=== PATIENT | female | born 1945 | race Caucasian/White ===

== ENCOUNTER 2017-02-23 00:38 | Inpatient (IN) | payer MEDICAID ==
[~2017-02-23] VITALS: Ht 157.5 cm; Wt 54.0 kg
[2017-02-23] VITALS (19 sets, daily range): BP systolic 103–134; BP diastolic 53–74
[2017-02-23] MEDS ORDERED: IV NORMAL SALINE 1000 ML BAG IV ONE ×2 (01:00→18:15)
--- NOTE | 2017-02-23 01:00 | NUR ---
PT BROUGHT IN BY EMS. PER DAUGHTER, PT WAS TAKEN OFF HOSPICE CARE AND CURRENTLY LIVES AT HOME. INCREASING CONGESTION AND AMS
--- NOTE | 2017-02-23 01:10 | NUR ---
LAB AND RT AT PT BEDSIDE
[2017-02-23 01:13] LABS: ABG BASE EXCESS 4.8 mmol/L; ABG HCO3 27.3 mmol/L; ABG PCO2 33.2 mmHg (35.0-45.0); ABG PH 7.533 (7.350-7.450); ABG SITE LEFT RADIAL; ABG TOTAL HEMOGLOBIN 11.9 G/dL (12.0-16.0); COHb 1.4 % (0.5-1.5); MetHb 0.1 % (0.0-1.5); O2Hb 85.3 % (94.0-97.0); VENT MODE Nasal Cannula
[2017-02-23 01:34] LABS: BASOPHILS # (AUTO) 0.1 K/uL (0.0-8.0); BASOPHILS % (AUTO) 0.2 % (0.0-2.0); HEMATOCRIT 35.4 % (31.2-41.9); HEMOGLOBIN 11.8 g/dL (10.9-14.3); LYMPHOCYTES % (AUTO) 3.8 % (20.5-51.5); MEAN CORPUSCULAR HEMOGLOBIN 31.7 uug (24.7-32.8); MEAN CORPUSCULAR HGB CONC 33 g/dL (32.3-35.6); MEAN CORPUSCULAR VOLUME 95.4 fL (75.5-95.3); MONOCYTES # (AUTO) 0.6 K/uL (2.0-10.0); MONOCYTES % (AUTO) 2.1 % (0.0-11.0); NEUTROPHILS # (AUTO) 24.2 K/uL (1.8-8.9); NEUTROPHILS % (AUTO) 93.9 % (38.5-71.5); PLATELET COUNT (AUTO) 288 K/uL (179-408); RED BLOOD CELL COUNT(AUTO) 3.71 MIL/uL (3.63-4.92); WHITE BLOOD COUNT (AUTO) 25.8 K/uL (3.8-11.8)
[2017-02-23] MEDS ORDERED: LEVOFLOXACIN 750 MG/D5W 150 ML PIGGYBACK IV ONE (01:45)
[2017-02-23] MEDS ORDERED: ENOXAPARIN SODIUM 80 MG/0.8 ML DISP.SYRIN SQ ONE ×2 (01:45→02:43)
[2017-02-23 02:00] LABS: ALANINE AMINOTRANSFERASE 80 U/L (14-59); ALKALINE PHOSPHATASE 88 U/L (50-136); ASPARTATE AMINOTRANSFERASE 51 U/L (15-37); BILIRUBIN,DIRECT 0.2 mg/dL (0.0-0.2); CARBON DIOXIDE 29 mmol/L (21-32); CREATININE 1.1 mg/dL (0.6-1.3); GLUCOSE 160 mg/dL (74-106); UREA NITROGEN, BLOOD 36 mg/dL (7-18)
--- NOTE | 2017-02-23 02:00 | NUR ---
PT PUT ON BIPAP BY RT
[2017-02-23 02:23] LABS: CHLORIDE 127 mmol/L (98-107)
--- NOTE | 2017-02-23 02:36 | NUR ---
Dr. Uli carnes for Dr. Reeves
[2017-02-23] MEDS ORDERED: LEVOFLOXACIN 750MG/D5W 150 ML IV ONE (02:43)
[2017-02-23] MEDS ORDERED: IV NS 1000 ML 1,000 ML IV ONE (02:51)
--- NOTE | 2017-02-23 03:00 | NUR ---
Placed pt on BiPAP due to shallow breathing, tachypnea and Dr Reeves order with the following settings of I-15, E-5, PS-10, RR-18, FIO2-60%. Pt awake. Family at bedside. Alarms on and audible.
[2017-02-23] MEDS ORDERED: Z GUARD REMEDY PASTE 57 GM TUBE TOP PRN (03:15)
[2017-02-23] MEDS ORDERED: MAGNESIUM HYDROXIDE 30 ML LIQUID UDC PO PRN (03:15)
[2017-02-23] MEDS ORDERED: ONDANSETRON 4 MG/2 ML VIAL IV PRN (03:15)
[2017-02-23] MEDS ORDERED: IV 1/2NS 1000 ML 1,000 ML IV SCH (03:15)
[2017-02-23] MEDS ORDERED: ACETAMINOPHEN 325 MG TABLET PO PRN (03:15)
[2017-02-23] MEDS ORDERED: HYDROCODONE/APAP 5-325MG TABLET PO PRN (03:15)
[2017-02-23] MEDS ORDERED: LEVOTHYROXINE 88 MCG TABLET (03:49)
[2017-02-23] MEDS ORDERED: [UNRECOGNIZED DRUG - SUPPLY] (03:49)
[2017-02-23] MEDS ORDERED: [UNRECOGNIZED DRUG - SUPPLY] (03:49)
[2017-02-23] MEDS ORDERED: JENTADUETO (03:49)
[2017-02-23] MEDS ORDERED: BISOPROLOL FUMARATE 5 MG TAB (03:49)
--- NOTE | 2017-02-23 04:00 | NUR ---
PT IN POSITION OF COMFORT. DAUGHTER AT BEDSIDE
[2017-02-23] MEDS ORDERED: LEVOFLOXACIN 250 MG IV ONE (04:25)
[2017-02-23] MEDS ORDERED: D5W IV ONE (04:25)
--- NOTE | 2017-02-23 05:05 | NUR ---
RT AT PT BEDSIDE
--- NOTE | 2017-02-23 05:54 | NUR ---
LAB AT PT BEDSIDE
[2017-02-23 06:31] LABS: CARBON DIOXIDE 26 mmol/L (21-32); GLUCOSE 191 mg/dL (74-106); POTASSIUM 2.9 mmol/L (3.5-5.1); UREA NITROGEN, BLOOD 34 mg/dL (7-18)
[2017-02-23 06:34] LABS: CHLORIDE 127 mmol/L (98-107)
[2017-02-23] MEDS ORDERED: IOHEXOL 350 100 ML INFUS..BTL ONE (07:02)
[2017-02-23] MEDS ORDERED: IV NORMAL SALINE 250 ML IV ONE (07:02)
--- NOTE | 2017-02-23 07:14 | NUR ---
Care signed over from Dr. Reeves. The patient is 71 years old. History of dementia. Family is at bedside and the patient is full code. She has a presumptive pulmonary embolism right now being treated with Lovenox as well as antibiotics for possible bacterial pneumonia. On shift change she is on her way to the scanner for CT PA.
--- NOTE | 2017-02-23 07:38 | NUR ---
REPORT GIVEN TO MAGED JAMISON.
[2017-02-23] MEDS ORDERED: PROPOFOL 100 ML IV ONE (07:53)
--- NOTE | 2017-02-23 07:55 | NUR ---
Was called by radiology that the patient has a small subsegmental right lower lobe pulmonary embolism but no signs of right heart strain. She does have a multifocal multilobar pneumonia. Lengthy discussion with the daughter at bedside regarding the patient's diagnosis and her continued respiratory distress and that she would likely benefit from endotracheal intubation at this time. The daughter agrees.
[2017-02-23] MEDS ORDERED: PROPOFOL 200 MG/20 ML BOTTLE IV ONE (08:00)
[2017-02-23] MEDS ORDERED: FENTANYL CITRATE 100 MCG/2 ML AMPUL IV ONE (08:00)
[2017-02-23] MEDS ORDERED: KETAMINE HCL 500 MG/10 ML INJ IV ONE ×2 (08:00→09:30)
[2017-02-23] MEDS ORDERED: SUCCINYLCHOLINE CHLORIDE 200 MG/10 ML VIAL IV ONE ×2 (08:00→11:36)
[2017-02-23] MEDS ORDERED: FENTANYL CITRAT IV 1,250 MCG in IV NORMAL SALINE 225 ML IV PRN (08:15)
[2017-02-23] MEDS ORDERED: KETAMINE HCL 500 MG/10 ML INJ ONE (08:28)
[2017-02-23] MEDS ORDERED: PROPOFOL 100 ML ONE ×2 (08:31→16:49)
[2017-02-23] MEDS ORDERED: FENTANYL CITRATE 100 MCG/2 ML AMPUL ONE ×2 (08:31→08:34)
--- NOTE | 2017-02-23 08:59 | NUR ---
I intubated the patient on first pass without complication using ketamine and succinylcholine a Mac 4 blade and a 7.5 ET tube. The patient was requiring 16 mmHg of EPAP while on BiPAP I will presume she has ARDS won't treat her with tidal volume of 450 which is roughly 7 mL/kg, start with hypertension of 10, oxygen of 60, and follow up with the blood gas in 30 minutes. Her influenza swab is not back yet but I will presumptively begin treatment with Tamiflu now. Endotracheal Intubation by me: Pre assessment performed. See preceding note for details. Pre-oxygenation performed with 100% oxygen RSI: Performed w/o complication or hypoxic events. Medications as ordered. Blade: [Mac 4] ET Tube: [7.5] cm Depth: [21] cm at the lip Intubation confirmed by colorimetric CO2, equal breath sounds, quiet over the stomach.
[2017-02-23] MEDS ORDERED: OSELTAMIVIR PHOSPHATE 75 MG CAPSULE PO ONE (09:00)
--- NOTE | 2017-02-23 09:00 | NUR ---
Pt intubated.. settings as charted.. titrate to maintain sats 92%
[2017-02-23] MEDS ORDERED: NOREPINEPHRINE BITARTRATE 8 MG in IV DEXTROSE 5% 500 ML IV PRN ×2 (09:15→19:15)
[2017-02-23] MEDS ORDERED: DOPamine IV DRIP 250 ML IV PRN (09:30)
[2017-02-23 10:00] LABS: ABG BASE EXCESS -2.9 mmol/L; ABG HCO3 21.3 mmol/L; ABG PCO2 34.9 mmHg (35.0-45.0); ABG PH 7.403 (7.350-7.450); ABG PO2 68.1 mmHg (75.0-100.0); ABG SITE RIGHT RADIAL; ABG TOTAL HEMOGLOBIN 10.6 G/dL (12.0-16.0); COHb 0.6 % (0.5-1.5); O2Hb 91.3 % (94.0-97.0); VENT MODE VENT - A/C; VT, ABG 450 mL
[2017-02-23] MEDS ORDERED: DEXTROSE 50% 50 ML DISP.SYRIN IV PRN (10:45)
--- NOTE | 2017-02-23 11:00 | NUR ---
Spoke with Zachary for Picc Line placement as ordered by Dr. Lambert, eta 1300.
[2017-02-23] MEDS: ENOXAPARIN SODIUM 80 MG/0.8 ML DISP.SYRIN SQ SCH ×2 (11:03→23:38)
[2017-02-23] MEDS ORDERED: ENOXAPARIN SODIUM 40 MG/0.4 ML DISP.SYRIN SQ ONE (11:21)
[2017-02-23] MEDS ORDERED: ENOXAPARIN SODIUM 30 MG/0.3 ML DISP.SYRIN ONE (11:21)
[2017-02-23] MEDS: BLOOD SUGAR DIAGNOSTIC 1 EACH STRIP VI SCH ×3 (12:40→23:40)
[2017-02-23 14:02] LABS: CARBON DIOXIDE 23 mmol/L (21-32); CREATININE 1.2 mg/dL (0.6-1.3); GLUCOSE 240 mg/dL (74-106); UREA NITROGEN, BLOOD 38 mg/dL (7-18)
[2017-02-23 14:04] LABS: CHLORIDE 126 mmol/L (98-107)
--- NOTE | 2017-02-23 17:01 | NUR ---
REPOPRT WAS GIVEN TO PATTERN PUNCHER. PT WAS TRANSFERD TO CCU ROOM #3.
[2017-02-23] MEDS ORDERED: CEFTRIAXONE 1 G in IV DEXTROSE 5% 50 ML IV SCH (18:15)
[2017-02-23] MEDS ORDERED: IV 1/2NS 1000 ML 1,000 ML IV PRN (18:44)
[2017-02-23] MEDS ORDERED: NS IV ONE (18:45)
[2017-02-23] MEDS ORDERED: PROPOFOL 100 ML IV PRN (19:15)
[2017-02-23 19:50] LABS: *BLOOD, URINE 2+ (NEGATIVE); *CLARITY,URINE SLIGHTLY CLOUDY (CLEAR); *COLOR,URINE DARK YELLOW (YELLOW); *KETONES,URINE NEGATIVE (NEGATIVE); *PROTEIN,URINE 2+ (NEGATIVE); *UROBILINOGEN,URINE 0.2 E.U./dl (NORMAL); LEUKOCYTE ESTERASE ,URINE NEGATIVE (NEGATIVE); NITRITE, URINE NEGATIVE (NEGATIVE); UGLUCOSE NEGATIVE (NEGATIVE)
[2017-02-23] MEDS: PROPOFOL 100 ML IV PRN (19:52)
[2017-02-23] MEDS: PANTOPRAZOLE SODIUM 40 MG VIAL IV SCH (19:54)
[2017-02-23] MEDS: INSULIN REGULAR, HUMAN 300 UNIT/3 ML VIAL SQ PRN ×2 (19:58→23:39)
--- NOTE | 2017-02-23 20:00 | NUR ---
Spoke with Dr Pop regarding insulin coverage with NPO patient and no dextrose in IVF. Orders received. OK to give insulin as order per sliding scale. If Accu-check glucose levels reach < 200, change IVF to D5 1/2NS @ 100mL/hr (placed as [facility] order).
[2017-02-23 20:03] LABS: *BILIRUBIN,URIN NEGATIVE (NEGATIVE)
[2017-02-23 20:04] LABS: BACTERIA,URINE MANY /HPF (NONE SEEN); COARSE GRANULAR CASTS,URINE 0-3 /LPF; MUCUS,URINE MANY /LPF (0-FEW); SQUAMOUS EPITHELIAL CELL,UR FEW /HPF (NONE SEEN); WBC,URINE 0-3 /HPF (0-3)
--- NOTE | 2017-02-23 21:08 | NUR ---
Tamiflu not given in ER. Override pyxis, given as ordered.
[2017-02-23] MEDS ORDERED: OSELTAMIVIR PHOSPHATE 75 MG CAPSULE ONE (21:17)
--- NOTE | 2017-02-23 22:07 | NUR ---
PT ON CONT JORDAN VENT WITH 7.5 ET/TUBE IN PLACE 22CM LIP LINE, ANCHOR FAST IN PLACE AND SECURED, WITH CURRENT VENT SETTINGS, A/C 20, VT 450ML, PEEP5, 35%, PT WITH MOSTLY CONTROLLED VENTILATION, WITH GOOD COUGH EFFORT, SPUTUM SAMPLE WAS DONE, SLIGHT BLOODY TINGE SECRETIONS, AND SUCTION MOUTH WITH BLANCA GUERRIER, PT IN CONTACT ISOLATION, CHECK CUFF 24CM PRESSURE, CHANGE HME, ALL ALARMS OK, AMBU BAG AT BEDSIDE, NO VENT CHANGES MADE AT THIS TIME.Law VIVEROS RCP Addendum: 02/23/17 at 2210 by WAQAR VIVEROS RT Amended: Links added.
--- NOTE | 2017-02-23 23:30 | NUR ---
Resting comfortably, adequately sedated on Diprivan. Comfortable on current vent settings. Weaned off Levophed drip. Will monitor pt closely. Accuchek down to 183 thus IV solution changed to D5 1/2 NS at 100 ml/hr. Nursing comfort measures observed at all times. Turned/positioned q 2hr and PRN. Please see CCU flowsheet for full assessment and clinical data.
[2017-02-23] MEDS: IV D5 1/2 NS 1000 ML 1,000 ML IV PRN (23:57)
[2017-02-24] VITALS (31 sets, daily range): BP systolic 89–158; BP diastolic 26–89
[2017-02-24] MEDS ORDERED: IPRATROPIUM BROMIDE 0.5 MG/2.5 ML NEBU NEB PRN (00:15)
[2017-02-24] MEDS ORDERED: ALBUTEROL SULFATE 1.25 MG/3 ML NEBU NEB PRN (00:15)
[2017-02-24 01:45] LABS: CARBON DIOXIDE 27 mmol/L (21-32); GLUCOSE 191 mg/dL (74-106); UREA NITROGEN, BLOOD 34 mg/dL (7-18)
[2017-02-24 01:50] LABS: CHLORIDE 126 mmol/L (98-107); POTASSIUM 2.5 mmol/L (3.5-5.1)
[2017-02-24] MEDS: LEVOFLOXACIN 250MG /D5W 250 MG in PREMIXED 1 EACH IV SCH (02:14)
[2017-02-24] MEDS: POTASSIUM CHLORIDE 50 ML IV SCH ×4 (03:52→05:57)
[2017-02-24] MEDS: BLOOD SUGAR DIAGNOSTIC 1 EACH STRIP VI SCH ×3 (05:56→18:38)
[2017-02-24] MEDS: INSULIN REGULAR, HUMAN 300 UNIT/3 ML VIAL SQ PRN ×3 (05:58→18:42)
--- NOTE | 2017-02-24 06:00 | NUR ---
Stable night. Remains off pressor. Requires minimal dose Diprivan. KCL replacements in progress. No ectopics on monitor. Please see CCU flowsheet for trends and clinical data.
--- NOTE | 2017-02-24 07:30 | NUR ---
recieved lying in bed, sedated, on propofol drip at 15mcg/kg/min. via the picc line on the right upper arm. PT IS EASILY AROUSABLE, INTUBATED AND CONNECTED TO VENT AT AC-20, VT-450, FIO2-35%, PEEP-5. TOLERATED WELL. SUCTION SMALL AMOUNT OF CLEAR WHITISH SECRETIONS. NO APPARENT RESPIRATORY DISTRESS NOTED.
[2017-02-24 07:54] LABS: ABG BASE EXCESS -2.3 mmol/L; ABG HCO3 20.4 mmol/L; ABG PCO2 27.8 mmHg (35.0-45.0); ABG PH 7.483 (7.350-7.450); ABG PO2 94.5 mmHg (75.0-100.0); ABG SITE RIGHT RADIAL; ABG TOTAL HEMOGLOBIN 9.3 G/dL (12.0-16.0); COHb 0.6 % (0.5-1.5); MetHb 0.3 % (0.0-1.5); O2Hb 96.1 % (94.0-97.0); VENT MODE VENT - A/C; VT, ABG 450 mL
--- NOTE | 2017-02-24 08:00 | NUR ---
HR IS SR WITH OCCASSIONAL PAC'S.
[2017-02-24] MEDS: PANTOPRAZOLE SODIUM 40 MG VIAL IV SCH (08:42)
[2017-02-24 09:59] LABS: MONOCYTES # (AUTO) 0.3 K/uL (2.0-10.0); NEUTROPHILS # (AUTO) 12.6 K/uL (1.8-8.9)
[2017-02-24 10:10] LABS: BASOPHILS % (AUTO) 0.3 % (0.0-2.0); EOSINOPHILS % (AUTO) 0.1 % (0.0-7.0); LYMPHOCYTES # (AUTO) 0.9 K/uL (20.0-40.0); LYMPHOCYTES % (AUTO) 6.4 % (20.5-51.5); MEAN CORPUSCULAR HEMOGLOBIN 31.9 uug (24.7-32.8); MEAN CORPUSCULAR HGB CONC 33 g/dL (32.3-35.6); NEUTROPHILS % (AUTO) 91.2 % (38.5-71.5)
[2017-02-24 10:27] LABS: RED BLOOD CELL COUNT(AUTO) 2.44 MIL/uL (3.63-4.92)
[2017-02-24 10:28] LABS: HEMATOCRIT 23.4 % (31.2-41.9); HEMOGLOBIN 7.8 g/dL (10.9-14.3); PLATELET COUNT (AUTO) 154 K/uL (179-408); WHITE BLOOD COUNT (AUTO) 13.8 K/uL (3.8-11.8)
[2017-02-24] MEDS: PROPOFOL 100 ML IV PRN (10:56)
[2017-02-24] MEDS: IV D5 1/2 NS 1000 ML 1,000 ML IV PRN (11:00)
--- NOTE | 2017-02-24 11:30 | NUR ---
INFORMED CATALINO WOMACK REGARDING HIGH SODIUM. PT IS GETTING 300ML OF WATER Q4HRS.
--- NOTE | 2017-02-24 11:30 | NUR ---
SEEN AND EXAMINED BY DR STOKES WITH NEW ORDERS.
[2017-02-24 11:35] LABS: CARBON DIOXIDE 24 mmol/L (21-32); CHLORIDE 123 mmol/L (98-107); CREATININE 0.9 mg/dL (0.6-1.3); GLUCOSE 187 mg/dL (74-106); MAGNESIUM 1.7 mg/dL (1.8-2.4); PHOSPHOROUS 1.8 mg/dL (2.5-4.9); POTASSIUM 3.1 mmol/L (3.5-5.1); UREA NITROGEN, BLOOD 34 mg/dL (7-18)
[2017-02-24] MEDS ORDERED: CEFEPIME HCL 1 G in IV DEXTROSE 5% 50 ML IV SCH ×2 (13:00→14:00)
--- NOTE | 2017-02-24 13:00 | NUR ---
DAUGHTER AND AT THE BEDSIDE. SPOKEN WITH FISHER CLAM.
[2017-02-24] MEDS: ENOXAPARIN SODIUM 80 MG/0.8 ML DISP.SYRIN SQ SCH ×2 (13:17→23:00)
--- NOTE | 2017-02-24 14:00 | NUR ---
OGT INTACT.. VSS.
[2017-02-24] MEDS ORDERED: NEUTRA PHOS PACKET NG ONE (16:30)
--- NOTE | 2017-02-24 17:01 | NUR ---
PT REMAINS ON JORDAN VENT, SETTINGS AC 20, Vt 450, +5, 35% FIO2. DOING WELL ON CURRENT SETTINGS, NO SOB NOTED. 7.5 ETT IS PATENT AND SECURED WITH ANCHOR FAST. SUCTIONED SMALL AMOUNTS OF PALE YELLOW THICK SECRETIONS. BVM AT BEDSIDE. ALARMS ARE ON AND AUDIBLE. WILL CONTINUE TO MONITOR.
--- NOTE | 2017-02-24 18:30 | NUR ---
PM CARE RENDERED.
[2017-02-25] VITALS (17 sets, daily range): BP systolic 102–133; BP diastolic 53–65
[2017-02-25] MEDS: BLOOD SUGAR DIAGNOSTIC 1 EACH STRIP VI SCH ×5 (00:29→23:38)
--- NOTE | 2017-02-25 01:45 | NUR ---
PT ON CONT JORDAN VENT WITH 7.5 ET/TUBE IN PLACE, 21CM AT BEDSIDE, WITH ANCHOR FAST IN PLACE AND SECURED,ROTATE ANCHOR FAST SIDE TO SIDE, SUCTIONED LIGHT PALE YELL TINGE SECRETIONS, WITH GOOD COUGH EFFORT, PT WITH MOSTLY CONTROLLED VENTILATION, SUCTION MOUTH WITH YANKAUER, ORAL CARE DONE, CHANGE HME, NO VENT CHANGES MADE AT THIS TIME., VENT SETTINGS, A/C 20, VT 450ML, , PEEP5 , 35%. Law LINDP Addendum: 02/25/17 at 0153 by WAQAR VIVEROS RT Amended: Links added.
[2017-02-25] MEDS: LEVOFLOXACIN 250MG /D5W 250 MG in PREMIXED 1 EACH IV SCH (03:42)
[2017-02-25] MEDS: PROPOFOL 100 ML IV PRN ×3 (03:52→21:17)
[2017-02-25] MEDS ORDERED: LEVOFLOXACIN 250MG /D5W 50 ML IV ONE (03:53)
[2017-02-25 05:21] LABS: BASOPHILS % (AUTO) 0.1 % (0.0-2.0); EOSINOPHILS # (AUTO) 0.1 K/uL (0.0-0.7); EOSINOPHILS % (AUTO) 0.5 % (0.0-7.0); HEMATOCRIT 28.5 % (31.2-41.9); HEMOGLOBIN 9.1 g/dL (10.9-14.3); LYMPHOCYTES % (AUTO) 5.7 % (20.5-51.5); MEAN CORPUSCULAR HEMOGLOBIN 30.3 uug (24.7-32.8); MEAN CORPUSCULAR HGB CONC 32 g/dL (32.3-35.6); MEAN CORPUSCULAR VOLUME 94.7 fL (75.5-95.3); MONOCYTES # (AUTO) 0.3 K/uL (2.0-10.0); MONOCYTES % (AUTO) 1.8 % (0.0-11.0); NEUTROPHILS # (AUTO) 15.8 K/uL (1.8-8.9); NEUTROPHILS % (AUTO) 91.9 % (38.5-71.5); PLATELET COUNT (AUTO) 198 K/uL (179-408); RED BLOOD CELL COUNT(AUTO) 3.01 MIL/uL (3.63-4.92); WHITE BLOOD COUNT (AUTO) 17.2 K/uL (3.8-11.8)
[2017-02-25 05:31] LABS: CARBON DIOXIDE 23 mmol/L (21-32); CHLORIDE 119 mmol/L (98-107); CREATININE 0.7 mg/dL (0.6-1.3); GLUCOSE 143 mg/dL (74-106); MAGNESIUM 1.7 mg/dL (1.8-2.4); PHOSPHOROUS 2.1 mg/dL (2.5-4.9); POTASSIUM 3.1 mmol/L (3.5-5.1); UREA NITROGEN, BLOOD 24 mg/dL (7-18)
[2017-02-25] MEDS: INSULIN REGULAR, HUMAN 300 UNIT/3 ML VIAL SQ PRN ×3 (06:38→18:33)
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
--- NOTE | 2017-02-25 07:30 | NUR ---
RECIEVED PT LYING IN BED, VERY THERESA, SEDATED, EASILY AROUSABLE TO CALL. OPENS EYES. FACE EVEN AND SYMMETRICAL. ALL EXTREMETIES ARE GENERALLY WEAK. LEFT ARM IS SWOLLEN +3 AND ELEVATED ON PILLOW. HR SR WITH OCCASSIONAL PAC'S. PICC LINE INTACT. PROPOFOL DRIP INFUSING WELL AT 15MCG/KG/MIN. MAIN IVF D5NS AT 100ML/HR IN PROGRESS. RIGHT UPPER EXTRMETY IS STIFF. AFEBRILE. ETT INTACT. VENT SETTING AC-20, VT-450, FIO2-35%, PEEP-5. O2SAT 99-100%. ORAL AND ET SUCTIONING WITIH MODERATE AMOUNT OF THICK YELLOW SECRETIONS. NO APPARENT RESPIRATORY DISTRESS NOTED.
--- NOTE | 2017-02-25 07:40 | NUR ---
PT RECEIVED ON JORDAN VENTILATOR. CURRENT VENT SETTINGS ARE AC 20, VT 450, PEEP +5, FIO2 35%. PT APPEARS TO BE TOLERATING SETTINGS AT THIS TIME. NO S/S OF RESPIRATORY DISTRESS NOTED. PT IS ORALLY INTUBATED WITH 7.5 ETT APPROXIMATELY 21CM AT THE LIP. ETT IS PATENT AND SECURED WITH ANCHOR FAST. VENT CHECK DONE. ALARMS ARE ON AND AUDIBLE. SUCTIONED MODERATE AMOUNT OF THICK, YELLOW SECRETIONS. HME CHANGED. ORAL CARE DONE. AMBU BAG IS AT BEDSIDE. VENT IS PLUGGED INTO RED OUTLET. ABG TO BE DONE AT 0800. WILL CONTINUE TO MONITOR PT THROUGHOUT SHIFT.
[2017-02-25] MEDS ORDERED: LEVOFLOXACIN 250MG /D5W 250 MG in PREMIXED 1 EACH IV SCH (08:00)
[2017-02-25 08:16] LABS: ABG BASE EXCESS -3.7 mmol/L; ABG HCO3 19.1 mmol/L; ABG PCO2 27.4 mmHg (35.0-45.0); ABG PH 7.462 (7.350-7.450); ABG PO2 97.9 mmHg (75.0-100.0); ABG SITE RIGHT RADIAL; ABG TOTAL HEMOGLOBIN 9.8 G/dL (12.0-16.0); COHb 0.8 % (0.5-1.5); MetHb 0.3 % (0.0-1.5); O2Hb 96.2 % (94.0-97.0); VENT MODE VENT - A/C; VT, ABG 450 mL
[2017-02-25] MEDS: PANTOPRAZOLE SODIUM 40 MG VIAL IV SCH (09:21)
--- NOTE | 2017-02-25 09:30 | NUR ---
PT IS NPO. OGT INTACT AND PT IS GETTING FREE WATER 300ML Q 4HRS. NO BM NOTED. ABDOMEN IS SOFT.
[2017-02-25] MEDS ORDERED: CEFEPIME HCL 1 G in IV DEXTROSE 5% 50 ML IV SCH ×2 (10:00→11:00)
[2017-02-25] MEDS: IV D5 1/2 NS 1000 ML 1,000 ML IV PRN ×2 (10:22→16:06)
--- NOTE | 2017-02-25 11:15 | NUR ---
SEEN AND EXAMINED BY DR STOKES WITH NEW ORDERS. VENT RATE CHANGED TO 16 ORDERED. AND PROPOFOL IS OFF TO PREPARE PT FOR WEANING.
--- NOTE | 2017-02-25 12:00 | NUR ---
PLACED PT ON CPAP, PSV-10 BY RT PER MD ORDER. PT IS AWAKE,OFF DIPRIVAN.
--- NOTE | 2017-02-25 12:04 | NUR ---
CLINICAL PHARMACY NOTE:VANCOMYCIN DOSING Request for vancomycin dosing on 71y/o female 5'2" 112lbs for sepsis/pneumonia Temp 98.2 BUN 24 Scr 0.7 WBC 17.2 also on Zosyn Start vancomycin 750mg ivpb q18 hours estimated trough 14. Will order trough level prior to 4ht dose. Will continue to monitor.
--- NOTE | 2017-02-25 12:30 | NUR ---
PT RR IS VERY FAST IN THE 40'S. APPEARS GOOD. O2 SAT IS 97%.
--- NOTE | 2017-02-25 12:30 | NUR ---
PT SEVERELY TACHYPNEIC DURING WEANING. VITALS APPEAR STABLE. PT HOWEVER WORKING VERY HARD TO BREATH. STAT ABG DONE. PLACED BACK ON PREVIOUS SETTINGS DUE TO RESPIRATORY RANGING IN THE 40-50'S.
[2017-02-25 12:35] LABS: ABG BASE EXCESS -2.8 mmol/L; ABG HCO3 20.2 mmol/L; ABG PCO2 28.9 mmHg (35.0-45.0); ABG PH 7.462 (7.350-7.450); ABG PO2 84.9 mmHg (75.0-100.0); ABG SITE RIGHT RADIAL; ABG TOTAL HEMOGLOBIN 10.1 G/dL (12.0-16.0); COHb 0.9 % (0.5-1.5); CPAP,BG 10 cmH20; MetHb 0.3 % (0.0-1.5); VENT MODE CPAP
--- NOTE | 2017-02-25 12:45 | NUR ---
RR IS PERSISTENTLY FASTER IN THE 50'S. ABG DRAWN EARLIER AT THIS TIME AND THEN VENT RESUMED BACK TO AC.
--- NOTE | 2017-02-25 12:50 | NUR ---
ABG RESULT CALLED OOUT TO DR STOKES AND INFORMED PT FAILED WEANING PROCESS. ORDERED ABG IN THE MORNING.
[2017-02-25] MEDS: ENOXAPARIN SODIUM 80 MG/0.8 ML DISP.SYRIN SQ SCH ×2 (13:24→23:24)
[2017-02-25] MEDS: PIPERACILLIN/TAZOBACTAM/D5W 3.375 G in PREMIXED 1 EACH IV SCH ×2 (13:31→21:18)
[2017-02-25] MEDS ORDERED: VANCOMYCIN IV 750 MG in IV DEXTROSE 5% 250 ML IV SCH (14:00)
[2017-02-25] MEDS ORDERED: POTASSIUM CHLORIDE 50 ML IV SCH (14:15)
[2017-02-25] MEDS: VANCOMYCIN IV 750 MG in IV NORMAL SALINE 250 ML IV SCH (14:55)
[2017-02-25] MEDS: POTASSIUM CHLORIDE 10 MEQ in IV DEXTROSE 5% 50 ML IV SCH ×4 (14:55→18:25)
[2017-02-25] MEDS: MAGNESIUM SULFATE/D5W 100 ML IV SCH ×2 (14:56→16:06)
--- NOTE | 2017-02-25 15:00 | NUR ---
MAGNESIUM AND POTASSIUM COVERAGE STARTED AND GIVEN TO PT IVPB.
[2017-02-25] MEDS ORDERED: NEUTRA PHOS PACKET NG ONE (15:45)
--- NOTE | 2017-02-25 18:00 | NUR ---
STOOL FOR OB SENT TO LAB.
--- NOTE | 2017-02-25 18:30 | NUR ---
PM CARE AND ORAL CARE GIVEN.
[2017-02-26] VITALS (24 sets, daily range): BP systolic 84–130; BP diastolic 41–68
[2017-02-26] MEDS: PIPERACILLIN/TAZOBACTAM/D5W 3.375 G in PREMIXED 1 EACH IV SCH ×3 (04:01→19:51)
[2017-02-26 05:25] LABS: CARBON DIOXIDE 23 mmol/L (21-32); CHLORIDE 118 mmol/L (98-107); CREATININE 0.7 mg/dL (0.6-1.3); GLUCOSE 165 mg/dL (74-106); MAGNESIUM 2.1 mg/dL (1.8-2.4); PHOSPHOROUS 2.5 mg/dL (2.5-4.9); POTASSIUM 3.3 mmol/L (3.5-5.1); UREA NITROGEN, BLOOD 10 mg/dL (7-18)
[2017-02-26 05:32] LABS: BASOPHILS % (AUTO) 0.2 % (0.0-2.0); EOSINOPHILS # (AUTO) 0.1 K/uL (0.0-0.7); EOSINOPHILS % (AUTO) 1.2 % (0.0-7.0); HEMATOCRIT 27.2 % (31.2-41.9); HEMOGLOBIN 9.4 g/dL (10.9-14.3); LYMPHOCYTES # (AUTO) 0.8 K/uL (20.0-40.0); LYMPHOCYTES % (AUTO) 7.2 % (20.5-51.5); MEAN CORPUSCULAR HEMOGLOBIN 32.6 uug (24.7-32.8); MEAN CORPUSCULAR HGB CONC 35 g/dL (32.3-35.6); MEAN CORPUSCULAR VOLUME 94.3 fL (75.5-95.3); MONOCYTES # (AUTO) 0.3 K/uL (2.0-10.0); MONOCYTES % (AUTO) 2.5 % (0.0-11.0); NEUTROPHILS # (AUTO) 9.3 K/uL (1.8-8.9); NEUTROPHILS % (AUTO) 88.9 % (38.5-71.5); PLATELET COUNT (AUTO) 201 K/uL (179-408); RED BLOOD CELL COUNT(AUTO) 2.89 MIL/uL (3.63-4.92); WHITE BLOOD COUNT (AUTO) 10.5 K/uL (3.8-11.8)
[2017-02-26] MEDS: BLOOD SUGAR DIAGNOSTIC 1 EACH STRIP VI SCH ×4 (05:51→23:38)
[2017-02-26] MEDS: INSULIN REGULAR, HUMAN 300 UNIT/3 ML VIAL SQ PRN ×4 (05:54→23:41)
[2017-02-26] MEDS: IV D5 1/2 NS 1000 ML 1,000 ML IV PRN ×2 (06:07→17:30)
--- NOTE | 2017-02-26 07:35 | NUR ---
PT RECEIVED ON VENT AT THIS PT VENT SETTINGS ARE AC 16, VT 450, PEEP +5 FIO2 35%. PT ET-TUBE 7.5 AT 21CM . PT AT THIS TIME IS TOLERATING VENT WELL NO DISTRESS NOTED PT ORAL CARE WAS DONE PT WAS SUCTION HME WAS CHANGED. PT CUFF PRESSURED WAS CHECKED [id number]. PT VENT ALARMS ON AND AUDIBLE PT AMBU BAG AT BED SIDE. PT ABG WAS DONE. WILL CONTINUE TO MONITOR PT. PT HAS NO WEANING ORDERS AT THIS TIME.
[2017-02-26 07:39] LABS: *OCCULT BLOOD STOOL NEGATIVE (NEGATIVE)
[2017-02-26] MEDS: VANCOMYCIN IV 750 MG in IV NORMAL SALINE 250 ML IV SCH (08:08)
[2017-02-26] MEDS: PANTOPRAZOLE SODIUM 40 MG VIAL IV SCH (08:09)
[2017-02-26 08:10] LABS: ABG BASE EXCESS -2.1 mmol/L; ABG HCO3 20.8 mmol/L; ABG PCO2 29.3 mmHg (35.0-45.0); ABG SITE RIGHT RADIAL; ABG TOTAL HEMOGLOBIN 9.5 G/dL (12.0-16.0); COHb 0.5 % (0.5-1.5); MetHb 0.4 % (0.0-1.5); VENT MODE VENT - A/C; VT, ABG 450 mL
[2017-02-26] MEDS: PROPOFOL 100 ML IV PRN (08:11)
[2017-02-26] MEDS: ENOXAPARIN SODIUM 80 MG/0.8 ML DISP.SYRIN SQ SCH ×2 (10:08→22:36)
--- NOTE | 2017-02-26 10:30 | NUR ---
Dr. Thorpe in the unit to examine patient; full report given see orders.
--- NOTE | 2017-02-26 11:40 | NUR ---
SHANTA. Letty marx in the unit to examine patient; full report given, no orders received.
[2017-02-26] MEDS ORDERED: POTASSIUM CHLORIDE 20 MEQ TAB.PRT.SR PO ONE (12:00)
--- NOTE | 2017-02-26 16:25 | NUR ---
CLINICAL PHARMACY NOTE:VANCOMYCIN DOSING S continue vancomycin dosing on 71y/o female 5'2" 112lbs for sepsis/pneumonia O Temp 98.5 BUN 10 Scr 0.7 WBC 10.5 P Will continue same dose of vancomycin 750mg ivpb q18 hours for today. 3rd dose is due on 02/27 at 0200.. Will order trough level prior to 4ht dose (not yet ordered). Will monitor renal function & adjust the dose if needed. Will continue to monitor.
--- NOTE | 2017-02-26 20:00 | NUR ---
RECEIVED PT. ORALLY INTUBATED TO VENT W/ SETTINGS OF AC-16, TV-450,FIO2-35%, PEEP-+5, W/ O2 SAT OF 100%. ON DIPRIVAN DRIP @ 20MCQ/KG/MIN VIA BALJIT PICC LINE. IVFD51/2NS @ 100CC/HR.ORAL GASTRIC TUBE INTACT & CHECKED PLACEMENT. SUCTIONED ORALLY & VIA ETT W/ SCANTY TANNISH THICK MINIMAL MUCOUS. REPOSITIONED PT TO SIDE AFTER HS CARE DONE, ORAL CARE DONE W/ HOB ELEVATED. AFEBRILE.
--- NOTE | 2017-02-26 21:55 | NUR ---
RECEIVED PT ON A JORDAN VENTILATOR WITH THE FOLLOWING SETTINGS: AC 16, VT 450, PEEP +5, 35%. PT IS ORALLY INTUBATED WITH ET TUBE SIZE 7.5, APPROX. 21 CM AT THE LIP LINE. SUCTIONED SMALL AMOUNTS OF THIN WHITE AND YELLOW SECRETIONS. HME CHANGED. ET TUBE IS SECURED WITH ANCHOR FAST. VENT ALARMS ARE ON AND AUDIBLE. AMBU BAG IS BY BEDSIDE. VENT IS PLUGGED IN THE RED OUTLET. PT IS TOLERATING CURRENT VENT SETTINGS WITH NO SOB NOTED AT THIS TIME. WILL CONTINUE TO MONITOR.
--- NOTE | 2017-02-26 23:00 | NUR ---
HS CARE DONE, ORAL CARE DONE. REPOSITIONED ON HER SIDE W/ HOB ELEVATED.
[2017-02-27] VITALS (23 sets, daily range): BP systolic 93–167; BP diastolic 36–109
[2017-02-27] MEDS: VANCOMYCIN IV 750 MG in IV NORMAL SALINE 250 ML IV SCH ×2 (01:28→23:03)
[2017-02-27] MEDS: PIPERACILLIN/TAZOBACTAM/D5W 3.375 G in PREMIXED 1 EACH IV SCH ×3 (03:20→20:30)
--- NOTE | 2017-02-27 05:00 | NUR ---
AM CARE DONE. ORALCARE DONE. REPOSITIONED ON HER BACK FOR CXR.
[2017-02-27 05:14] LABS: BASOPHILS % (AUTO) 0.3 % (0.0-2.0); EOSINOPHILS # (AUTO) 0.1 K/uL (0.0-0.7); EOSINOPHILS % (AUTO) 1.9 % (0.0-7.0); HEMATOCRIT 24.2 % (31.2-41.9); HEMOGLOBIN 8.1 g/dL (10.9-14.3); LYMPHOCYTES # (AUTO) 0.9 K/uL (20.0-40.0); MEAN CORPUSCULAR HEMOGLOBIN 31.9 uug (24.7-32.8); MEAN CORPUSCULAR HGB CONC 34 g/dL (32.3-35.6); MEAN CORPUSCULAR VOLUME 94.7 fL (75.5-95.3); MONOCYTES # (AUTO) 0.2 K/uL (2.0-10.0); MONOCYTES % (AUTO) 3.1 % (0.0-11.0); NEUTROPHILS # (AUTO) 5.9 K/uL (1.8-8.9); NEUTROPHILS % (AUTO) 82.7 % (38.5-71.5); PLATELET COUNT (AUTO) 183 K/uL (179-408); RED BLOOD CELL COUNT(AUTO) 2.55 MIL/uL (3.63-4.92); WHITE BLOOD COUNT (AUTO) 7.1 K/uL (3.8-11.8)
[2017-02-27] MEDS: PROPOFOL 100 ML IV PRN ×2 (05:25→12:08)
[2017-02-27] MEDS: BLOOD SUGAR DIAGNOSTIC 1 EACH STRIP VI SCH ×4 (05:31→22:27)
[2017-02-27] MEDS: IV D5 1/2 NS 1000 ML 1,000 ML IV PRN ×2 (05:40→16:36)
--- NOTE | 2017-02-27 06:15 | NUR ---
REPOSITIONED ON HER SIDE W/ HOB ELEVATED AFTER CXR. REMAINS SEDATED W/ DIPRIVAN @ 30MCQ/KG/MIN.
--- NOTE | 2017-02-27 07:00 | NUR ---
reported to aime dubon re: the cxr result to advance oral gastric tube to 25cm accdg to radiologist, .
[2017-02-27 08:00] LABS: CARBON DIOXIDE 26 mmol/L (21-32); CHLORIDE 118 mmol/L (98-107); CREATININE 0.7 mg/dL (0.6-1.3); GLUCOSE 146 mg/dL (74-106); POTASSIUM 3.2 mmol/L (3.5-5.1); UREA NITROGEN, BLOOD 7 mg/dL (7-18)
[2017-02-27] MEDS: PANTOPRAZOLE SODIUM 40 MG VIAL IV SCH (08:30)
--- NOTE | 2017-02-27 09:20 | NUR ---
AT this time placed on CPAP with pressure support of 8. patient tolerating well, saturation of 98% RT Olit at bedside. propofol running at 30mcg/kg /min patient restless and agitated triggering vent alarm.
[2017-02-27 10:18] LABS: ABG BASE EXCESS -2.4 mmol/L; ABG PCO2 31.1 mmHg (35.0-45.0); ABG PH 7.447 (7.350-7.450); ABG PO2 81.7 mmHg (75.0-100.0); ABG SITE RIGHT RADIAL; ABG TOTAL HEMOGLOBIN 9.6 G/dL (12.0-16.0); COHb 0.8 % (0.5-1.5); MetHb 0.3 % (0.0-1.5); O2Hb 94.6 % (94.0-97.0); VENT MODE VENT - PSUPPORT; VT, ABG 388 mL
--- NOTE | 2017-02-27 10:50 | NUR ---
PT PLACED ON CPAP MODE AND PSV 8 TO START THE WEANING. ABG WAS DRAWN AFTER AN HOUR WITH RESULT HANDED TO VALENCIA.
[2017-02-27] MEDS: ENOXAPARIN SODIUM 80 MG/0.8 ML DISP.SYRIN SQ SCH ×2 (11:13→22:32)
[2017-02-27] MEDS ORDERED: POTASSIUM CHLORIDE 20 MEQ POWDER PACKET NG ONE (11:45)
--- NOTE | 2017-02-27 12:19 | NUR ---
Maurilio Aguirre pulmonary services in the unit to examine patient; full report given see orders.
[2017-02-27] MEDS ORDERED: DC PROPOFOL ONCE EXTUBATED XX PRN (12:30)
[2017-02-27] MEDS: IPRATROPIUM BROMIDE 0.5 MG/2.5 ML NEBU NEB SCH ×2 (12:32→15:44)
--- NOTE | 2017-02-27 12:40 | NUR ---
DR HOWELL CAME TO SEE THE PT AND ORDERED FOR AN EXTUBATION. WHEN FULLY AWAKE PT WAS EXTUBATED AND GIVEN HHN TREATMENT. PT WAS PLACED ON 4 LPM NC AFTER THE BREATHING TX. SHE IS STABLE AT 95-97 AT THIS TIME.
--- NOTE | 2017-02-27 12:40 | NUR ---
At this time with Dr. Thorpe pulmonary services in the unit and patient wean off completely from propofol. Patient awake and alert extubated and placed on Nsasal Canula 4 Liter. breathing treatment given.
--- NOTE | 2017-02-27 13:44 | NUR ---
CLINICAL PHARMACY NOTE:VANCOMYCIN DOSING S continue vancomycin dosing on 71y/o female 5'2" 112lbs for sepsis/pneumonia O Temp 98 BUN 7 Scr 0.7 WBC 7.1 P Will continue same dose of vancomycin 750mg ivpb q18 hours for today. Will order trough level prior to 4ht dose (ordered for today at 1930). Will monitor renal function & adjust the dose if needed. Will continue to monitor.
[2017-02-27] MEDS: ALBUTEROL SULFATE 2.5 MG/3 ML NEBU NEB SCH ×2 (15:44→19:12)
[2017-02-27] MEDS: INSULIN REGULAR, HUMAN 300 UNIT/3 ML VIAL SQ PRN ×2 (17:56→22:31)
[2017-02-27] MEDS ORDERED: ACETAMINOPHEN 650 MG SUPP.RECT RC PRN (20:30)
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
[2017-02-28] VITALS (23 sets, daily range): BP systolic 107–158; BP diastolic 48–84
[2017-02-28] MEDS: PIPERACILLIN/TAZOBACTAM/D5W 3.375 G in PREMIXED 1 EACH IV SCH ×3 (03:57→20:06)
[2017-02-28] MEDS: IV D5 1/2 NS 1000 ML 1,000 ML IV PRN ×2 (04:14→15:10)
--- NOTE | 2017-02-28 04:51 | NUR ---
BED BATH GIVEN. AM LABS DRAWN AND SENT TO LAB. HAVING UNEVENTFUL NIGHT. Q2HR TURNING. PICTURE OF HER SACRAL WOUND TAKEN. NO ACUTE DISTRESS. CONTINUE TO MONITOR.
[2017-02-28 05:36] LABS: BASOPHILS % (AUTO) 0.2 % (0.0-2.0); EOSINOPHILS # (AUTO) 0.1 K/uL (0.0-0.7); EOSINOPHILS % (AUTO) 1.3 % (0.0-7.0); LYMPHOCYTES # (AUTO) 1.2 K/uL (20.0-40.0); MEAN CORPUSCULAR HGB CONC 35 g/dL (32.3-35.6); MEAN CORPUSCULAR VOLUME 92.8 fL (75.5-95.3); MONOCYTES # (AUTO) 0.3 K/uL (2.0-10.0); NEUTROPHILS # (AUTO) 7.3 K/uL (1.8-8.9); NEUTROPHILS % (AUTO) 82.5 % (38.5-71.5); RED BLOOD CELL COUNT(AUTO) 3.06 MIL/uL (3.63-4.92)
[2017-02-28 05:53] LABS: HEMATOCRIT 28.4 % (31.2-41.9); HEMOGLOBIN 9.8 g/dL (10.9-14.3); WHITE BLOOD COUNT (AUTO) 8.9 K/uL (3.8-11.8)
[2017-02-28 05:54] LABS: PLATELET COUNT (AUTO) 277 K/uL (179-408)
[2017-02-28 06:00] LABS: THYROID STIMULATING HORMONE 8.663 mIU/mL (0.358-3.740)
[2017-02-28] MEDS: BLOOD SUGAR DIAGNOSTIC 1 EACH STRIP VI SCH ×4 (06:00→23:39)
[2017-02-28] MEDS: ALBUTEROL SULFATE 2.5 MG/3 ML NEBU NEB SCH ×4 (07:14→19:40)
[2017-02-28] MEDS: IPRATROPIUM BROMIDE 0.5 MG/2.5 ML NEBU NEB SCH ×4 (07:14→19:40)
[2017-02-28 07:48] LABS: CARBON DIOXIDE 24 mmol/L (21-32); CHLORIDE 111 mmol/L (98-107)
[2017-02-28 07:49] LABS: BILIRUBIN,TOTAL 0.5 mg/dL (0.1-1.0); CREATININE 0.6 mg/dL (0.6-1.3); GLUCOSE 115 mg/dL (74-106); PHOSPHOROUS 2.1 mg/dL (2.5-4.9); UREA NITROGEN, BLOOD 3 mg/dL (7-20)
[2017-02-28 07:50] LABS: ALANINE AMINOTRANSFERASE 62 U/L (14-59); ASPARTATE AMINOTRANSFERASE 35 U/L (15-37); CHOLESTEROL 141 mg/dL (<200); HDL CHOLESTEROL 16 mg/dL (40-60); MAGNESIUM 1.6 mg/dL (1.8-2.4); TOTAL PROTEIN, SERUM 5.5 g/dL (6.4-8.2); TRIGLYCERIDES 145 MG/DL (30-150)
[2017-02-28 08:25] LABS: *BILIRUBIN,URIN NEGATIVE (NEGATIVE); *BLOOD, URINE Trace-intact (NEGATIVE); *CLARITY,URINE CLEAR (CLEAR); *KETONES,URINE NEGATIVE (NEGATIVE); *PROTEIN,URINE NEGATIVE (NEGATIVE); *UROBILINOGEN,URINE 0.2 E.U./dl (NORMAL); LEUKOCYTE ESTERASE ,URINE NEGATIVE (NEGATIVE); NITRITE, URINE NEGATIVE (NEGATIVE); PH,URINE 6.5 (5.0-8.0); UGLUCOSE NEGATIVE (NEGATIVE)
[2017-02-28 08:27] LABS: ALKALINE PHOSPHATASE 65 U/L (50-136)
[2017-02-28 08:33] LABS: *COLOR,URINE LIGHT YELLOW (YELLOW)
[2017-02-28 08:34] LABS: BACTERIA,URINE NONE SEEN /HPF (NONE SEEN); RBC,URINE 0-3 /HPF (0-3); SQUAMOUS EPITHELIAL CELL,UR FEW /HPF (NONE SEEN); WBC,URINE 0-3 /HPF (0-3)
[2017-02-28] MEDS: PANTOPRAZOLE SODIUM 40 MG VIAL IV SCH (08:47)
[2017-02-28 09:22] LABS: ABG BASE EXCESS 0.6 mmol/L; ABG HCO3 23.4 mmol/L; ABG PCO2 29.6 mmHg (35.0-45.0); ABG PH 7.515 (7.350-7.450); ABG PO2 74.8 mmHg (75.0-100.0); ABG SITE RIGHT RADIAL; ABG TOTAL HEMOGLOBIN 7.4 G/dL (12.0-16.0); COHb 1.8 % (0.5-1.5); MetHb 0.1 % (0.0-1.5); O2Hb 93.8 % (94.0-97.0); VENT MODE Nasal Cannula
[2017-02-28] MEDS: ENOXAPARIN SODIUM 80 MG/0.8 ML DISP.SYRIN SQ SCH ×2 (11:56→22:25)
[2017-02-28] MEDS: INSULIN REGULAR, HUMAN 300 UNIT/3 ML VIAL SQ PRN ×3 (12:05→23:41)
--- NOTE | 2017-02-28 12:43 | NUR ---
CLINICAL PHARMACY NOTE:VANCOMYCIN DOSING S continue vancomycin dosing on 71y/o female 5'2" 112lbs for sepsis/pneumonia O Temp 98.4 BUN 3 Scr 0.6 WBC 8.9 P pt was on vancomycin 750mg ivpb q18 hours, Trough was ordered prior to 4th dose (for 02/27 at 1930).it was done @ 22:10 and result was 6.7. RX will redose vanco as 850 mg IVPB q12h. Estimated peak of 37 and trough of 15. Will continue to monitor.
--- NOTE | 2017-02-28 14:12 | NUR ---
WOUND CARE CONSULT: PT PRESENTS WITH INCONTINENCE AND DEEP TISSUE INJURY WHICH IS INTACT TO SACRAL AREA. DRY SCAB NOTED TO RT HAND. ALL SKIN PROTECTION MEASURES IN PLACE. DISCUSSED WITH NURSING STAFF. PT HAD SWALLOW EVAL. PT ON FIRST STEP MATTRESS. WILL SEE PRN. PAIGE IN AGREEMENT WITH PLAN OF CARE. Addendum: 02/28/17 at 1419 by SHAYAN RODRÍGUEZ RN Amended: Links added.
[2017-02-28] MEDS: DEXTROSE 5% IV SCH (15:10)
[2017-02-28] MEDS: VANCOMYCIN IV SCH (15:10)
[2017-02-28] MEDS ORDERED: POTASSIUM CHLORIDE 50 ML IV SCH (15:45)
[2017-02-28] MEDS ORDERED: POTASSIUM CHLORIDE 50 ML IV ONE (16:15)
[2017-02-28] MEDS: MAGNESIUM SULFATE/D5W 100 ML IV SCH ×2 (18:11→19:43)
[2017-02-28] MEDS ORDERED: POTASSIUM PHOSPHATE MM 7.5 MMOL in IV DEXTROSE 5% 100 ML IV ONE (20:00)
--- NOTE | 2017-02-28 20:00 | NUR ---
RECEIVED PT. OPENS HER EYES TO VERBAL, NOT FOLLOWING TO SIMPLE COMMAND. ON O2 @ 2LNC W/AT OF 98%. SUCTIONED ORALLY W/ THICK TANNISH MUCOUS MOD. AMT. IVF D51/2NS @ 100C/HR ON BALJIT PICC LINE. REPOSITIONED ON HER SIDE W/ HOB ELEVATED. NOT IN ANY RESP DISTRESS. PT. REMAINS NPO ORDERED.
--- NOTE | 2017-02-28 23:00 | NUR ---
HS CARE DONE. ORAL CARE DONE.
[2017-03-01] VITALS (17 sets, daily range): BP systolic 101–161; BP diastolic 9–91
[2017-03-01] MEDS: VANCOMYCIN IV SCH ×2 (01:53→14:27)
[2017-03-01] MEDS: DEXTROSE 5% IV SCH ×2 (01:53→14:27)
[2017-03-01] MEDS: PIPERACILLIN/TAZOBACTAM/D5W 3.375 G in PREMIXED 1 EACH IV SCH ×3 (03:27→19:32)
--- NOTE | 2017-03-01 05:00 | NUR ---
AM CARE DONE, ORAL CARE DONE. SUCTIONED ORALLY W/ SCANTY TANNISH THIN MUCOUS. REPOSITIONED ON HER SIDE W/ HOB ELEVATED.
[2017-03-01 05:13] LABS: BASOPHILS % (AUTO) 0.4 % (0.0-2.0); EOSINOPHILS # (AUTO) 0.2 K/uL (0.0-0.7); EOSINOPHILS % (AUTO) 2.3 % (0.0-7.0); HEMATOCRIT 27.2 % (31.2-41.9); HEMOGLOBIN 9.4 g/dL (10.9-14.3); LYMPHOCYTES # (AUTO) 1.2 K/uL (20.0-40.0); LYMPHOCYTES % (AUTO) 17.8 % (20.5-51.5); MEAN CORPUSCULAR HEMOGLOBIN 31.9 uug (24.7-32.8); MEAN CORPUSCULAR HGB CONC 35 g/dL (32.3-35.6); MEAN CORPUSCULAR VOLUME 91.9 fL (75.5-95.3); MONOCYTES # (AUTO) 0.2 K/uL (2.0-10.0); MONOCYTES % (AUTO) 2.9 % (0.0-11.0); NEUTROPHILS # (AUTO) 5.3 K/uL (1.8-8.9); NEUTROPHILS % (AUTO) 76.6 % (38.5-71.5); PLATELET COUNT (AUTO) 296 K/uL (179-408); RED BLOOD CELL COUNT(AUTO) 2.96 MIL/uL (3.63-4.92)
[2017-03-01 05:15] LABS: CARBON DIOXIDE 30 mmol/L (21-32); CHLORIDE 107 mmol/L (98-107); CREATININE 0.6 mg/dL (0.6-1.3); GLUCOSE 133 mg/dL (74-106); UREA NITROGEN, BLOOD 1 mg/dL (7-18)
[2017-03-01 05:16] LABS: MAGNESIUM 2.2 mg/dL (1.8-2.4); PHOSPHOROUS 1.9 mg/dL (2.5-4.9)
[2017-03-01 05:27] LABS: POTASSIUM 2.8 mmol/L (3.5-5.1)
[2017-03-01] MEDS: BLOOD SUGAR DIAGNOSTIC 1 EACH STRIP VI SCH ×4 (05:37→23:27)
--- NOTE | 2017-03-01 06:24 | NUR ---
REMAINS NPO, WILL REPEAT SWALLOW EVAL.
--- NOTE | 2017-03-01 06:47 | NUR ---
DR Tamia FRANKLIN CALLED BACK & NOTIFIED OF K+-2.8 W/ ORDERS.
--- NOTE | 2017-03-01 07:15 | NUR ---
PT IS LAYING IN BED COMFORTABLY. NO S/S OF RESPIRATORY DISTRESS NOTED, PT IS ON 2L HUMIDIFIED NC. PT OPENS HER EYES TO VERBAL, NOT FOLLOWING TO SIMPLE COMMAND. SUCTIONED ORALLY W/ THICK TANNISH MUCOUS. PICC LINE IS INTACT/PATENT. REPOSITIONED ON HER SIDE W/ HOB ELEVATED. NOT IN ANY RESP DISTRESS. PT. REMAINS NPO ORDERED.
[2017-03-01] MEDS: ALBUTEROL SULFATE 2.5 MG/3 ML NEBU NEB SCH ×4 (08:22→19:22)
[2017-03-01] MEDS: IPRATROPIUM BROMIDE 0.5 MG/2.5 ML NEBU NEB SCH ×4 (08:22→19:22)
[2017-03-01] MEDS: POTASSIUM CHLORIDE 50 ML IV SCH ×4 (08:23→11:16)
[2017-03-01] MEDS: PANTOPRAZOLE SODIUM 40 MG VIAL IV SCH (08:26)
[2017-03-01] MEDS: IV D5 1/2 NS 1000 ML 1,000 ML IV PRN (08:29)
--- NOTE | 2017-03-01 11:00 | NUR ---
DR HOWELL IS HERE TO ASSESS THE PT, PT REPORT IS GIVEN
[2017-03-01] MEDS: ENOXAPARIN SODIUM 80 MG/0.8 ML DISP.SYRIN SQ SCH ×2 (11:02→23:03)
--- NOTE | 2017-03-01 12:18 | NUR ---
CLINICAL PHARMACY NOTE:VANCOMYCIN DOSING S continue vancomycin dosing on 71y/o female 5'2" 112lbs for sepsis/pneumonia O Temp 98.1 BUN 1 Scr 0.6 WBC 7.0 P Will continue on vanco 850 mg IVPB q12h. Estimated peak of 37 and trough of 15. Trough ordered before 4th scheduled dose (due tomorrow early am at 0130). RN to hold dose if trough >20. Will check level in am and adjust as needed. Will continue to monitor.
[2017-03-01] MEDS: POTASSIUM PHOSPHATE MM 7.5 MMOL in IV DEXTROSE 5% 100 ML IV SCH ×3 (13:20→20:38)
--- NOTE | 2017-03-01 14:00 | NUR ---
DR CARMONA IS HERE TO ASSESS THE PT, PT REPORT IS GIVEN
--- NOTE | 2017-03-01 15:00 | NUR ---
Pt did not pass swallow evaluation, pt kept the thickened fluids in her mouth than started aspirating/coughing out the fluid. Dr Gtz is aware. No new orders noted.
--- NOTE | 2017-03-01 16:00 | NUR ---
DR LOW IS HERE TO ASSESS THE PT, PT REPORT IS GIVEN
[2017-03-01] MEDS: INSULIN REGULAR, HUMAN 300 UNIT/3 ML VIAL SQ PRN ×2 (18:23→23:31)
--- NOTE | 2017-03-01 20:00 | NUR ---
RECEIVED PT. OPENS HER EYES TO VERBAL STIMULI, PT NOT FOLLOWING SIMPLE COMMAND. ON O2 2LNC W/ O2 SAT OF 100%. IVF D51/2NS @ 100CC/HR ON BALJIT PICC LINE. POTASSIUM PHOSPHATE STILL INFUSING. REPOSITIONED W/ HOB ELEVATED. NOT IN ANY DISTRESS.
--- NOTE | 2017-03-01 22:00 | NUR ---
HS CARE DONE. ORAL CARE DONE. REPOSITIONED W/ HOB ELEVATED.
[2017-03-02] VITALS (7 sets, daily range): BP systolic 109–146; BP diastolic 67–82
[2017-03-02] MEDS: POTASSIUM PHOSPHATE MM 7.5 MMOL in IV DEXTROSE 5% 100 ML IV SCH (00:05)
[2017-03-02] MEDS: IV D5 1/2 NS 1000 ML 1,000 ML IV PRN ×2 (00:07→10:39)
[2017-03-02] MEDS: PIPERACILLIN/TAZOBACTAM/D5W 3.375 G in PREMIXED 1 EACH IV SCH ×3 (03:19→20:32)
--- NOTE | 2017-03-02 05:00 | NUR ---
AM CARE DONE. ORAL CARE DONE. REPOSITIONED ON HER SIDE W/ HOB ELEVATED. NOT IN ANY DISTRESS.
[2017-03-02 05:20] LABS: ALANINE AMINOTRANSFERASE 63 U/L (14-59); ALKALINE PHOSPHATASE 73 U/L (50-136); ASPARTATE AMINOTRANSFERASE 30 U/L (15-37); BILIRUBIN,TOTAL 0.4 mg/dL (0.2-1.0); CARBON DIOXIDE 26 mmol/L (21-32); CHLORIDE 105 mmol/L (98-107); CREATININE 0.7 mg/dL (0.6-1.3); GLUCOSE 158 mg/dL (74-106); MAGNESIUM 2.2 mg/dL (1.8-2.4); PHOSPHOROUS 3.4 mg/dL (2.5-4.9); POTASSIUM 3.7 mmol/L (3.5-5.1); TOTAL PROTEIN, SERUM 6.2 g/dL (6.4-8.2); UREA NITROGEN, BLOOD 3 mg/dL (7-18)
[2017-03-02 05:28] LABS: BASOPHILS % (AUTO) 0.4 % (0.0-2.0); EOSINOPHILS # (AUTO) 0.2 K/uL (0.0-0.7); HEMATOCRIT 31.5 % (31.2-41.9); HEMOGLOBIN 10.7 g/dL (10.9-14.3); LYMPHOCYTES # (AUTO) 1.1 K/uL (20.0-40.0); LYMPHOCYTES % (AUTO) 13.2 % (20.5-51.5); MEAN CORPUSCULAR HEMOGLOBIN 31.2 uug (24.7-32.8); MEAN CORPUSCULAR HGB CONC 34 g/dL (32.3-35.6); MEAN CORPUSCULAR VOLUME 91.8 fL (75.5-95.3); MONOCYTES # (AUTO) 0.3 K/uL (2.0-10.0); MONOCYTES % (AUTO) 3.8 % (0.0-11.0); NEUTROPHILS # (AUTO) 6.6 K/uL (1.8-8.9); NEUTROPHILS % (AUTO) 80.6 % (38.5-71.5); PLATELET COUNT (AUTO) 364 K/uL (179-408); RED BLOOD CELL COUNT(AUTO) 3.43 MIL/uL (3.63-4.92); WHITE BLOOD COUNT (AUTO) 8.2 K/uL (3.8-11.8)
[2017-03-02] MEDS: BLOOD SUGAR DIAGNOSTIC 1 EACH STRIP VI SCH ×3 (05:57→18:11)
[2017-03-02] MEDS: INSULIN REGULAR, HUMAN 300 UNIT/3 ML VIAL SQ PRN ×3 (05:58→18:13)
--- NOTE | 2017-03-02 07:00 | NUR ---
PT IS LAYING IN BED COMFORTABLY. NO S/S OF RESPIRATORY DISTRESS NOTED, PT IS ON 2L HUMIDIFIED NC. PT OPENS HER EYES TO VERBAL, NOT FOLLOWING TO SIMPLE COMMAND. PICC LINE IS INTACT/PATENT. HOB ELEVATED. NOT IN ANY RESP DISTRESS. PT. REMAINS NPO ORDERED.
[2017-03-02] MEDS: ALBUTEROL SULFATE 2.5 MG/3 ML NEBU NEB SCH ×4 (07:06→19:24)
[2017-03-02] MEDS: IPRATROPIUM BROMIDE 0.5 MG/2.5 ML NEBU NEB SCH ×4 (07:06→19:24)
[2017-03-02] MEDS: PANTOPRAZOLE SODIUM 40 MG VIAL IV SCH (09:17)
--- NOTE | 2017-03-02 11:00 | NUR ---
DR HOWELL IS HERE TO ASSESS THE PT, PT REPORT GIVEN.
[2017-03-02] MEDS: ENOXAPARIN SODIUM 80 MG/0.8 ML DISP.SYRIN SQ SCH ×2 (11:16→23:23)
--- NOTE | 2017-03-02 14:05 | NUR ---
DR CARMONA IS HERE TO ASSESS THE PT, PT'S DAUGHTER IS BY THE BEDSIDE. DARI CARMONA IS TALKING TO HER. NO NEW ORDERS
--- NOTE | 2017-03-02 14:35 | NUR ---
PT IS LAYING IN BED COMFORTABLY. NO S/S OF RESPIRATORY DISTRESS NOTED, PT IS ON 2L HUMIDIFIED NC. PT OPENS HER EYES TO VERBAL, NOT FOLLOWING TO SIMPLE COMMAND. SUCTIONED ORALLY W/ THICK TANNISH MUCOUS/SMALL IN AMOUNT. PICC LINE IS INTACT/PATENT. REPOSITIONED ON HER SIDE W/ HOB ELEVATED. NOT IN ANY RESP DISTRESS. PT. REMAINS NPO ORDERED.
--- NOTE | 2017-03-02 15:30 | NUR ---
REPORT RECEIVED FROM ALBERTO. PT ARRIVED IN BED CALM, RESTING, NO SIGNS OF RESPIRATORY DISTRESS. ZIEGLER OUTPUT 1400. PT HEAD IS IN HIGH FOWLERS POSITION DUE TO RISK OF ASPIRATION. SPEECH THERAPIST ARRIVED AND SHE FAILED THE SWALLOW TEST. CONTINUE TO MONITOR.
--- NOTE | 2017-03-02 18:48 | NUR ---
PT OBSERVED RESTING IN BED, NO SIGNS OF RESPIRATORY DISTRESS, PT HAD A BLOOD SUGAR OF 162 COVERED WITH 3 UNITS PER SLIDING SCALE. PT IS NON VERBAL AND HAS OXYGEN 2L. CONTINUE TO MONITOR PT.
[2017-03-03] MEDS: IV D5 1/2 NS 1000 ML 1,000 ML IV PRN ×2 (00:14→09:30)
[2017-03-03] MEDS: BLOOD SUGAR DIAGNOSTIC 1 EACH STRIP VI SCH ×5 (00:28→23:46)
[2017-03-03 00:59] VITALS: BP 154/73
[2017-03-03] MEDS: PIPERACILLIN/TAZOBACTAM/D5W 3.375 G in PREMIXED 1 EACH IV SCH ×3 (03:25→20:32)
[2017-03-03 04:00] VITALS: BP 151/71
--- NOTE | 2017-03-03 07:10 | NUR ---
RECEIVED REPORT FROM TUBE CARRIER NURSE, PATIENT IN BED AWAKE, NO EVIDENCE OF DISTRESS NOTED, BED IN LOW POSITION, SIDE RAILS UP X2. PERFORMED ORAL CARE, AND REPOSITIONED PATIENT.
[2017-03-03] MEDS: ALBUTEROL SULFATE 2.5 MG/3 ML NEBU NEB SCH ×4 (07:48→19:02)
[2017-03-03] MEDS: IPRATROPIUM BROMIDE 0.5 MG/2.5 ML NEBU NEB SCH ×4 (07:49→19:02)
[2017-03-03 08:31] LABS: BASOPHILS % (AUTO) 0.5 % (0.0-2.0); EOSINOPHILS # (AUTO) 0.1 K/uL (0.0-0.7); EOSINOPHILS % (AUTO) 1.5 % (0.0-7.0); HEMATOCRIT 29.9 % (31.2-41.9); HEMOGLOBIN 10.5 g/dL (10.9-14.3); LYMPHOCYTES # (AUTO) 1.3 K/uL (20.0-40.0); LYMPHOCYTES % (AUTO) 15.7 % (20.5-51.5); MEAN CORPUSCULAR HEMOGLOBIN 32.3 uug (24.7-32.8); MEAN CORPUSCULAR HGB CONC 35 g/dL (32.3-35.6); MEAN CORPUSCULAR VOLUME 92.3 fL (75.5-95.3); MONOCYTES # (AUTO) 0.4 K/uL (2.0-10.0); MONOCYTES % (AUTO) 4.5 % (0.0-11.0); NEUTROPHILS # (AUTO) 6.6 K/uL (1.8-8.9); NEUTROPHILS % (AUTO) 77.8 % (38.5-71.5); PLATELET COUNT (AUTO) 412 K/uL (179-408); RED BLOOD CELL COUNT(AUTO) 3.24 MIL/uL (3.63-4.92); WHITE BLOOD COUNT (AUTO) 8.5 K/uL (3.8-11.8)
[2017-03-03] MEDS: PANTOPRAZOLE SODIUM 40 MG VIAL IV SCH (08:39)
[2017-03-03 08:44] LABS: ALANINE AMINOTRANSFERASE 53 U/L (14-59); ALKALINE PHOSPHATASE 74 U/L (50-136); ASPARTATE AMINOTRANSFERASE 23 U/L (15-37); BILIRUBIN,TOTAL 0.3 mg/dL (0.2-1.0); CARBON DIOXIDE 29 mmol/L (21-32); CHLORIDE 107 mmol/L (98-107); CREATININE 0.7 mg/dL (0.6-1.3); GLUCOSE 135 mg/dL (74-106); MAGNESIUM 1.9 mg/dL (1.8-2.4); PHOSPHOROUS 2.3 mg/dL (2.5-4.9); POTASSIUM 3.2 mmol/L (3.5-5.1); TOTAL PROTEIN, SERUM 6.2 g/dL (6.4-8.2); UREA NITROGEN, BLOOD 2 mg/dL (7-18)
[2017-03-03 11:20] VITALS: BP 127/67
[2017-03-03] MEDS: ENOXAPARIN SODIUM 80 MG/0.8 ML DISP.SYRIN SQ SCH ×2 (11:59→22:21)
[2017-03-03] MEDS: INSULIN REGULAR, HUMAN 300 UNIT/3 ML VIAL SQ PRN (12:04)
[2017-03-03] MEDS: POTASSIUM PHOSPHATE MM 7.5 MMOL in IV DEXTROSE 5% 100 ML IV SCH ×2 (14:06→16:59)
[2017-03-03 15:31] VITALS: BP 125/67
--- NOTE | 2017-03-03 18:49 | NUR ---
dacosta catheter bag leaking on the floor, replaced dacosta bag. Patient is currently in bed awake, oral care performed throughout the day with repositioning. Bed in low position, side rails up x2. Patient is still NPO, and a phone consent obtained from daughter for PEG placement tomorrow at noon.
[2017-03-03 20:00] VITALS: BP 117/62
--- NOTE | 2017-03-03 20:00 | NUR ---
PT IN AWAKE, SHE'S NON VERBAL AND UNABLE TO STATE HER NEEDS. NO S/S OF PAIN OR RESP DISTRESS NOTED, CALL LIGHT WITHIN PT'S REACH, SAFETY MEASURES IN PLACE. WILL CONTINUE TO MONITOR PT
--- NOTE | 2017-03-04 | NUR ---
PT IS ASLEEP BUT EASILY AROUSABLE, PROVIDED ORAL CARE AND REPOSITIONED PT. NO EVIDENCE OF PAIN OR DISTRESS NOTED AT PRESENT, WILL CONTINUE TO MONITOR PT
[2017-03-04] MEDS: INSULIN REGULAR, HUMAN 300 UNIT/3 ML VIAL SQ PRN ×2 (00:15→23:24)
[2017-03-04] MEDS: PIPERACILLIN/TAZOBACTAM/D5W 3.375 G in PREMIXED 1 EACH IV SCH ×3 (03:41→19:52)
[2017-03-04] MEDS: IV D5 1/2 NS 1000 ML 1,000 ML IV PRN (03:41)
[2017-03-04 06:02] VITALS: BP 153/75
[2017-03-04] MEDS: BLOOD SUGAR DIAGNOSTIC 1 EACH STRIP VI SCH ×4 (06:25→23:27)
--- NOTE | 2017-03-04 06:40 | NUR ---
PT IS AWAKE WITH NO EVIDENCE OF PAIN OR DISTRESS AT THIS TIME, ORAL HYGIENE PROVIDED. CALL LIGHT WITHIN PT'S REACH. ALL NEEDS MET AND ANTICIPATED
--- NOTE | 2017-03-04 07:22 | NUR ---
RECEIVED REPORT FROM EMERGENCY TECHNICIAN NURSE, PATIENT IN BED ASLEEP, NO EVIDENCE OF DISTRESS NOTED, BED IN LOW POSITION, SIDE RAILS UP X2.
[2017-03-04 07:32] LABS: BASOPHILS % (AUTO) 0.5 % (0.0-2.0); EOSINOPHILS # (AUTO) 0.1 K/uL (0.0-0.7); EOSINOPHILS % (AUTO) 1.6 % (0.0-7.0); HEMATOCRIT 29.4 % (31.2-41.9); HEMOGLOBIN 10.2 g/dL (10.9-14.3); LYMPHOCYTES # (AUTO) 1.2 K/uL (20.0-40.0); LYMPHOCYTES % (AUTO) 15.1 % (20.5-51.5); MEAN CORPUSCULAR HEMOGLOBIN 32.3 uug (24.7-32.8); MEAN CORPUSCULAR HGB CONC 35 g/dL (32.3-35.6); MONOCYTES # (AUTO) 0.4 K/uL (2.0-10.0); MONOCYTES % (AUTO) 5.1 % (0.0-11.0); NEUTROPHILS % (AUTO) 77.7 % (38.5-71.5); PLATELET COUNT (AUTO) 400 K/uL (179-408); RED BLOOD CELL COUNT(AUTO) 3.16 MIL/uL (3.63-4.92); WHITE BLOOD COUNT (AUTO) 7.7 K/uL (3.8-11.8)
[2017-03-04 07:36] LABS: CARBON DIOXIDE 28 mmol/L (21-32); CHLORIDE 104 mmol/L (98-107); CREATININE 0.7 mg/dL (0.6-1.3); GLUCOSE 96 mg/dL (74-106); PHOSPHOROUS 2.3 mg/dL (2.5-4.9); UREA NITROGEN, BLOOD 2 mg/dL (7-18)
[2017-03-04] MEDS: ALBUTEROL SULFATE 2.5 MG/3 ML NEBU NEB SCH ×4 (07:57→19:40)
[2017-03-04] MEDS: IPRATROPIUM BROMIDE 0.5 MG/2.5 ML NEBU NEB SCH ×4 (07:57→19:40)
[2017-03-04] MEDS: PANTOPRAZOLE SODIUM 40 MG VIAL IV SCH (09:10)
[2017-03-04 10:30] VITALS: BP 162/78
--- NOTE | 2017-03-04 10:47 | NUR ---
PATIENT WENT DOWN TO SURGERY. CONSENT WAS SIGNED AND PRE-OP CHECKLIST DONE.
[2017-03-04] MEDS ORDERED: POTASSIUM CHLORIDE 50 ML IV SCH (11:00)
--- NOTE | 2017-03-04 12:15 | NUR ---
PATIENT RETURNED FROM SURGERY WITH A PEG TUBE PLACED ON ABDOMEN. ORDERS RECEIVED TO START TUBE FEEDING ORDERED PRIOR TO TUBE PLACEMENT. TUBE FEEDING WAS NOT IN USE PRIOR, AND PATIENT NEEDS TO HAVE A NUTRITIONAL CONSULT. TUBE FEEDING WILL START AT 20CC/HR AND CONTINUE UNTIL SEEN BY A YOUTH DIRECTOR.
[2017-03-04] MEDS: POTASSIUM CHLORIDE 10 MEQ in IV NORMAL SALINE 50 ML IV SCH ×2 (12:30→13:30)
[2017-03-04 12:44] VITALS: BP 166/80
[2017-03-04] MEDS: ENOXAPARIN SODIUM 80 MG/0.8 ML DISP.SYRIN SQ SCH ×2 (12:49→23:23)
[2017-03-04] MEDS: POTASSIUM PHOSPHATE MM 7.5 MMOL in IV DEXTROSE 5% 100 ML IV SCH ×2 (12:50→14:45)
[2017-03-04] MEDS ORDERED: IV D5 1/2 NS 1000 ML 1,000 ML IV PRN (13:00)
[2017-03-04] MEDS ORDERED: POTASSIUM PHOSPHATE MM 7.5 MMOL in IV DEXTROSE 5% 100 ML IV SCH (15:00)
[2017-03-04 15:13] VITALS: BP 147/80
[2017-03-04] MEDS ORDERED: PROPOFOL 200 MG/20 ML BOTTLE IV ONE (15:14)
[2017-03-04] MEDS ORDERED: IV NORMAL SALINE 1000 ML BAG IV ONE (15:14)
[2017-03-04] MEDS ORDERED: CEFAZOLIN 1 G VIAL MC ONE (15:14)
[2017-03-04] MEDS ORDERED: DIABETICSOURCE AC 1000ML LIQUID GT PRN (17:30)
[2017-03-04 20:00] VITALS: BP 138/71
--- NOTE | 2017-03-04 20:00 | NUR ---
patient awake, alert, non verbal,flat effect,s/p PEG placement today, no apparent distress, HOB elevated, tolerated g tube feeding at 20 ml/hr, scant of residual noted,dacosta cath drainage clear,yellowish urine,family visiting,o2 sat 99% on o2 at 2l/m via nasal cannula,turn and repositioning.
[2017-03-05] MEDS: PIPERACILLIN/TAZOBACTAM/D5W 3.375 G in PREMIXED 1 EACH IV SCH ×2 (04:50→11:20)
[2017-03-05] MEDS: BLOOD SUGAR DIAGNOSTIC 1 EACH STRIP VI SCH ×3 (05:29→17:32)
[2017-03-05 05:59] VITALS: BP 144/72
--- NOTE | 2017-03-05 06:49 | NUR ---
PATIENT TOLERATED TUBE FEEDING AT 20ML/HR NO N/V NOTED,HAD LARGE SOFT STOOL ,PATIENT SLEPT INTERMITTENTLY ,NO DISTRESS.
[2017-03-05] MEDS: ALBUTEROL SULFATE 2.5 MG/3 ML NEBU NEB SCH ×4 (07:33→19:00)
[2017-03-05] MEDS: IPRATROPIUM BROMIDE 0.5 MG/2.5 ML NEBU NEB SCH ×4 (07:33→19:00)
[2017-03-05] MEDS ORDERED: DIABETICSOURCE AC 1000ML LIQUID GT PRN (07:36)
--- NOTE | 2017-03-05 07:43 | NUR ---
RECEIVED REPORT FROM CAPACITY ANALYST NURSE, PATIENT IN BED ASLEEP, NO EVIDENCE OF DISTRESS NOTED, BED IN LOW POSITION, SIDE RAILS UP X2.
[2017-03-05] MEDS: PANTOPRAZOLE SODIUM 40 MG VIAL IV SCH (08:19)
[2017-03-05 08:47] LABS: BASOPHILS # (AUTO) 0.1 K/uL (0.0-8.0); BASOPHILS % (AUTO) 1.1 % (0.0-2.0); EOSINOPHILS # (AUTO) 0.2 K/uL (0.0-0.7); EOSINOPHILS % (AUTO) 2.2 % (0.0-7.0); HEMATOCRIT 29.1 % (31.2-41.9); HEMOGLOBIN 10.1 g/dL (10.9-14.3); LYMPHOCYTES # (AUTO) 1.3 K/uL (20.0-40.0); LYMPHOCYTES % (AUTO) 18.8 % (20.5-51.5); MEAN CORPUSCULAR HEMOGLOBIN 32.1 uug (24.7-32.8); MEAN CORPUSCULAR HGB CONC 35 g/dL (32.3-35.6); MEAN CORPUSCULAR VOLUME 92.4 fL (75.5-95.3); MONOCYTES # (AUTO) 0.3 K/uL (2.0-10.0); MONOCYTES % (AUTO) 4.7 % (0.0-11.0); NEUTROPHILS # (AUTO) 5.2 K/uL (1.8-8.9); NEUTROPHILS % (AUTO) 73.2 % (38.5-71.5); PLATELET COUNT (AUTO) 449 K/uL (179-408); RED BLOOD CELL COUNT(AUTO) 3.15 MIL/uL (3.63-4.92); WHITE BLOOD COUNT (AUTO) 7.1 K/uL (3.8-11.8)
[2017-03-05 09:03] LABS: ALANINE AMINOTRANSFERASE 37 U/L (14-59); ALKALINE PHOSPHATASE 70 U/L (50-136); ASPARTATE AMINOTRANSFERASE 19 U/L (15-37); BILIRUBIN,TOTAL 0.5 mg/dL (0.2-1.0); CARBON DIOXIDE 30 mmol/L (21-32); CHLORIDE 103 mmol/L (98-107); CREATININE 0.6 mg/dL (0.6-1.3); GLUCOSE 118 mg/dL (74-106); PHOSPHOROUS 2.1 mg/dL (2.5-4.9); POTASSIUM 3.1 mmol/L (3.5-5.1); TOTAL PROTEIN, SERUM 6.2 g/dL (6.4-8.2); UREA NITROGEN, BLOOD 3 mg/dL (7-18)
[2017-03-05] MEDS: ENOXAPARIN SODIUM 80 MG/0.8 ML DISP.SYRIN SQ SCH ×2 (10:42→23:11)
[2017-03-05 11:10] VITALS: BP 144/69
--- NOTE | 2017-03-05 12:00 | NUR ---
PT TUBE FEEDING INCREASE 30CC TO 40 CC PER MD ORDERS,PT TOLERATED WELL
[2017-03-05] MEDS: POTASSIUM PHOSPHATE MM 5 MMOL in IV DEXTROSE 5% 100 ML IV SCH ×4 (13:55→19:58)
[2017-03-05 15:21] VITALS: BP 145/76
[2017-03-05] MEDS: INSULIN REGULAR, HUMAN 300 UNIT/3 ML VIAL SQ PRN (17:33)
[2017-03-05 19:00] VITALS: BP 119/61
--- NOTE | 2017-03-05 19:30 | NUR ---
RECEIVED PT AWAKE AND ALERT, NONVERBAL. RECEIVED PT TUBE FEEDING 50CC PER MD ORDERS AND RELAY BY THE DAYSHIFT NURSE. PT TOLERATED WELL THE FEEDING. PT IV INTACT AND PATENT. SAFETY AND COMFORT PROVIDED.
[2017-03-06] MEDS: BLOOD SUGAR DIAGNOSTIC 1 EACH STRIP VI SCH ×3 (00:34→12:00)
[2017-03-06 04:00] VITALS: BP 130/74
--- NOTE | 2017-03-06 05:30 | NUR ---
PT SHOWS NO SIGNS OF DISTRESS. SLEPT T/O THE SHIFT. BLOOD SUGAR LEVEL WAS 128 AMD 120 ON MY SHIFT. NO INSULIN GIVEN. SAFETY AND COMFORT PROVIDED.
[2017-03-06] MEDS ORDERED: PANTOPRAZOLE ORAL SUSPENSION 40 MG SUSPDR.PKT GT SCH (06:00)
[2017-03-06] MEDS: IPRATROPIUM BROMIDE 0.5 MG/2.5 ML NEBU NEB SCH ×3 (07:35→14:54)
[2017-03-06] MEDS: ALBUTEROL SULFATE 2.5 MG/3 ML NEBU NEB SCH ×3 (07:42→14:54)
[2017-03-06 08:46] LABS: BASOPHILS % (AUTO) 0.6 % (0.0-2.0); EOSINOPHILS # (AUTO) 0.1 K/uL (0.0-0.7); HEMATOCRIT 30.8 % (31.2-41.9); HEMOGLOBIN 10.6 g/dL (10.9-14.3); LYMPHOCYTES # (AUTO) 1.4 K/uL (20.0-40.0); LYMPHOCYTES % (AUTO) 19.4 % (20.5-51.5); MEAN CORPUSCULAR HEMOGLOBIN 31.8 uug (24.7-32.8); MEAN CORPUSCULAR HGB CONC 34 g/dL (32.3-35.6); MEAN CORPUSCULAR VOLUME 92.6 fL (75.5-95.3); MONOCYTES # (AUTO) 0.4 K/uL (2.0-10.0); MONOCYTES % (AUTO) 5.7 % (0.0-11.0); NEUTROPHILS # (AUTO) 5.2 K/uL (1.8-8.9); NEUTROPHILS % (AUTO) 72.3 % (38.5-71.5); PLATELET COUNT (AUTO) 476 K/uL (179-408); RED BLOOD CELL COUNT(AUTO) 3.32 MIL/uL (3.63-4.92); WHITE BLOOD COUNT (AUTO) 7.2 K/uL (3.8-11.8)
[2017-03-06 08:53] LABS: ALANINE AMINOTRANSFERASE 32 U/L (14-59); ASPARTATE AMINOTRANSFERASE 14 U/L (15-37); BILIRUBIN,TOTAL 0.3 mg/dL (0.2-1.0); CARBON DIOXIDE 28 mmol/L (21-32); CHLORIDE 106 mmol/L (98-107); CREATININE 0.5 mg/dL (0.6-1.3); GLUCOSE 114 mg/dL (74-106); MAGNESIUM 1.9 mg/dL (1.8-2.4); POTASSIUM 3.8 mmol/L (3.5-5.1); TOTAL PROTEIN, SERUM 6.3 g/dL (6.4-8.2); UREA NITROGEN, BLOOD 7 mg/dL (7-18)
[2017-03-06 09:04] LABS: ALKALINE PHOSPHATASE 71 U/L (50-136)
[2017-03-06] MEDS: ENOXAPARIN SODIUM 80 MG/0.8 ML DISP.SYRIN SQ SCH (11:03)
[2017-03-06 11:28] VITALS: BP 125/68
[2017-03-06] MEDS ORDERED: NEUTRA PHOS PACKET GT ONE (12:00)
[2017-03-06] MEDS ORDERED: ACETAMINOPHEN 650 MG/20.3 ML LIQUID UDC GT PRN (12:00)
[2017-03-06] MEDS ORDERED: ACIDOPHILUS/BULGARICUS CHEW TAB GT SCH (12:00)
--- NOTE | 2017-03-06 12:01 | NUR ---
BLOOD SUGAR 115. NO COVERAGE PER SLIDING SCALE.
[2017-03-06] MEDS ORDERED: HYDROCODONE/APAP 5-325MG TABLET PO PRN (12:15)
[2017-03-06 15:55] VITALS: BP 120/70
[2017-03-06] MEDS ORDERED: IPRA0.2S6 NEB (17:04)
[2017-03-06] MEDS ORDERED: RIVA10TA PO (17:04)
[2017-03-06] MEDS ORDERED: Multivitamins GT (17:04)
[2017-03-06] MEDS ORDERED: MENT71OI TOP (17:04)
[2017-03-06] MEDS ORDERED: Nut.tx.glucose Intolerance,Soy GT (17:04)
[2017-03-06] MEDS ORDERED: HYDR-3326 PO (17:04)
[2017-03-06] MEDS ORDERED: ACET650S26 GT (17:04)
[2017-03-06] MEDS ORDERED: ALBU1.25 NEB (17:04)
[2017-03-06] MEDS ORDERED: PANT40SU2 GT (17:04)
[2017-03-06] MEDS ORDERED: MAGN400O6 PO (17:04)
[2017-03-06] MEDS ORDERED: ACID1TAB4 GT (17:04)
--- NOTE | 2017-03-06 17:17 | NUR ---
PT D/C TO [facility] WITH [facility]. PT D/C WITH ALL BELONGINGS AND VALUABLES. PT D/C WITH EXIT CARE PACKET. PT IS STABLE FOR D/C. PT SHOWS NO SIGNS OF RESPIRATORY DISTRESS, IS ON 2 L OF OXYGEN. REPORT GIVEN TO FACILITY NURSING SECONDS [employer]. Addendum: 03/06/17 at 2001 by HERO GAGE RN wrong time: pt d/c at 1917. PT D/C TO [facility] WITH [facility]IEGL[facility] CATHETER. PT D/C WITH ALL BELONGINGS AND VALUABLES. PT D/C WITH EXIT CARE PACKET. PT IS STABLE FOR D/C. PT SHOWS NO SIGNS OF RESPIRATORY DISTRESS, IS ON 2 L OF OXYGEN. REPORT GIVEN TO FACILITY NURSING SECONDS [employer]BE[employer]RICE.
[2017-03-06] MEDS ORDERED: RIVAROXABAN 10 MG TABLET PO SCH (18:00)
--- NOTE | 2017-03-06 19:17 | NUR ---
pt d/c at 1917. the picc line removed at 190 35cm long with trimmed end. Pt arm circumference 2inches above insertion is 9.5 inches.
[2017-03-06 19:49] VITALS: BP 128/75
[2017-03-07] MEDS ORDERED: MULTIVITAMINS 5 ML LIQUID UDC GT SCH (09:00)
== END 2017-03-06 19:00 | DRG 130 ==
LOC: ER 00:44 → TRANSITION 10:31 → CCU 16:31 → TELE 03-02 15:53 → MED 03-03 11:00
PROVIDERS: ADMIT Internal Medicine; ATTEND Nurse Practitioner Acute Care
PROC: 5A09357 Assistance with Respiratory Ventilation, Less than 24 Consecutive Hours, Continuous Positive Airway Pressure (ICD-10-PCS; principal; 2017-02-23)
PROC: 0BH17EZ Insertion of Endotracheal Airway into Trachea, Via Natural or Artificial Opening (ICD-10-PCS; principal; 2017-02-23)
PROC: 02HV33Z Insertion of Infusion Device into Superior Vena Cava, Percutaneous Approach (ICD-10-PCS; principal; 2017-02-23)
PROC: 5A1955Z Respiratory Ventilation, Greater than 96 Consecutive Hours (ICD-10-PCS; principal; 2017-02-23)
PROC: 3E0G76Z Introduction of Nutritional Substance into Upper GI, Via Natural or Artificial Opening (ICD-10-PCS; 2017-03-04)
PROC: 0DH63UZ Insertion of Feeding Device into Stomach, Percutaneous Approach (ICD-10-PCS; 2017-03-04)
DX: I26.99 Other pulmonary embolism without acute cor pulmonale (principal); N17.0 Acute kidney failure with tubular necrosis; R57.8 Other shock; J69.0 Pneumonitis due to inhalation of food and vomit; R65.20 Severe sepsis without septic shock; A41.9 Sepsis, unspecified organism; G93.41 Metabolic encephalopathy; E43 Unspecified severe protein-calorie malnutrition; J96.01 Acute respiratory failure with hypoxia; J90 Pleural effusion, not elsewhere classified; R13.10 Dysphagia, unspecified; E87.0 Hyperosmolality and hypernatremia; Z98.2 Presence of cerebrospinal fluid drainage device; R53.2 Functional quadriplegia; E86.0 Dehydration; E87.6 Hypokalemia; Z85.3 Personal history of malignant neoplasm of breast; F03.90 Unspecified dementia, unspecified severity, without behavioral disturbance, psychotic disturbance, mood disturbance, and anxiety; Z68.21 Body mass index [BMI] 21.0-21.9, adult; E88.09 Other disorders of plasma-protein metabolism, not elsewhere classified; Z74.09 Other reduced mobility; E11.65 Type 2 diabetes mellitus with hyperglycemia; E86.1 Hypovolemia; I67.2 Cerebral atherosclerosis; N39.0 Urinary tract infection, site not specified; K56.7 Ileus, unspecified; R62.7 Adult failure to thrive; D50.9 Iron deficiency anemia, unspecified; D68.59 Other primary thrombophilia; E03.9 Hypothyroidism, unspecified; E83.39 Other disorders of phosphorus metabolism; I10 Essential (primary) hypertension
CPT/HCPCS: 36415; 36600; 70030-TC; 70450; 71045; 71275; 74018; 82306; 83605; 83735; 84100; 84443; 85025; 85610; 87040; 87070; 87086; 87400; 92526; 92610; 93005; 93307; 94002; 94003; 94640; A4217; A4663; C9113; J0330; J0690; J0692; J0696; J1650; J1815; J1956; J2543; J3010; J3370; J3475; J3480; J3490; J3590; J7030; J7050; J7060; Q9967

== ENCOUNTER 2017-11-02 14:36 | Inpatient (IN) | payer MEDICAID ==
[~2017-11-02] VITALS: Ht 157.5 cm; Wt 46.7 kg
[~2017-11-02 14:36] MED LIST: ACET650S26 GT; ACID1TAB4 GT; ALBU1.25 NEB; HYDR-3326 PO; IPRA0.2S6 NEB; MAGN400O6 PO; MENT71OI TOP; Multivitamins GT; Nut.tx.glucose Intolerance,Soy GT; PANT40SU2 GT; RIVA10TA PO
[2017-11-02] MEDS ORDERED: DEXL60CA3 GT (14:52)
[2017-11-02] MEDS ORDERED: IV NORMAL SALINE 1000 ML BAG IV ONE (15:00)
[2017-11-02 15:18] LABS: BASOPHILS # (AUTO) 0.1 K/uL (0.0-8.0); BASOPHILS % (AUTO) 1.1 % (0.0-2.0); EOSINOPHILS # (AUTO) 0.1 K/uL (0.0-0.7); EOSINOPHILS % (AUTO) 1.2 % (0.0-7.0); HEMATOCRIT 37.6 % (31.2-41.9); HEMOGLOBIN 13.1 g/dL (10.9-14.3); LYMPHOCYTES # (AUTO) 1.3 K/uL (20.0-40.0); LYMPHOCYTES % (AUTO) 21.8 % (20.5-51.5); MEAN CORPUSCULAR HEMOGLOBIN 33.5 uug (24.7-32.8); MEAN CORPUSCULAR HGB CONC 35 g/dL (32.3-35.6); MEAN CORPUSCULAR VOLUME 96.3 fL (75.5-95.3); MONOCYTES # (AUTO) 0.3 K/uL (2.0-10.0); MONOCYTES % (AUTO) 5.6 % (0.0-11.0); NEUTROPHILS # (AUTO) 4.2 K/uL (1.8-8.9); NEUTROPHILS % (AUTO) 70.3 % (38.5-71.5); PLATELET COUNT (AUTO) 207 K/uL (179-408); RED BLOOD CELL COUNT(AUTO) 3.91 MIL/uL (3.63-4.92)
[2017-11-02 15:24] LABS: CARBON DIOXIDE 28 mmol/L (21-32); CHLORIDE 105 mmol/L (98-107); CREATININE 0.6 mg/dL (0.6-1.3); GLUCOSE 130 mg/dL (74-106); POTASSIUM 4.2 mmol/L (3.5-5.1); UREA NITROGEN, BLOOD 20 mg/dL (7-18)
[2017-11-02 15:27] LABS: *BILIRUBIN,URIN NEGATIVE (NEGATIVE); *BLOOD, URINE NEGATIVE (NEGATIVE); *CLARITY,URINE CLOUDY (CLEAR); *COLOR,URINE YELLOW (YELLOW); *KETONES,URINE NEGATIVE (NEGATIVE); *PROTEIN,URINE NEGATIVE (NEGATIVE); *UROBILINOGEN,URINE 0.2 E.U./dl (NORMAL); LEUKOCYTE ESTERASE ,URINE NEGATIVE (NEGATIVE); NITRITE, URINE NEGATIVE (NEGATIVE); PH,URINE 7.5 (5.0-8.0); UGLUCOSE NEGATIVE (NEGATIVE)
[2017-11-02 15:29] LABS: MUCUS,URINE MANY /LPF (0-FEW); SQUAMOUS EPITHELIAL CELL,UR MODERATE /HPF (NONE SEEN); URINE AMORPHOUS PHOSPHATES MODERATE /HPF
[2017-11-02 15:29] LABS: ALANINE AMINOTRANSFERASE 22 U/L (14-59); ALKALINE PHOSPHATASE 70 U/L (50-136); ASPARTATE AMINOTRANSFERASE 14 U/L (15-37); BILIRUBIN,DIRECT 0.1 mg/dL (0.0-0.2); BILIRUBIN,TOTAL 0.6 mg/dL (0.2-1.0); TOTAL PROTEIN, SERUM 7.4 g/dL (6.4-8.2)
[2017-11-02 15:52] LABS: THYROID STIMULATING HORMONE 23.239 mIU/mL (0.358-3.740)
[2017-11-02 17:00] VITALS: BP 131/80
--- NOTE | 2017-11-02 17:00 | NUR ---
PT TRANSFERED TO FLOOR IN STABLE CONDITION.
[2017-11-02 19:30] VITALS: BP 132/75
--- NOTE | 2017-11-02 19:30 | NUR ---
RECEIVED IN BED, AWAKE, BUT NON VERBAL NOTED, FACE RELAXED, NO S/S OF PAIN NOTED AT THIS TIME. RYTHM SINUS RYTHM AT THIS TIME. NO S/S OF PAIN NOTED AT THIS TIME. KEPT CLEAN AND DRY.
[2017-11-02] MEDS ORDERED: HYDROCODONE/APAP 5-325MG TABLET PO PRN (21:30)
[2017-11-02] MEDS ORDERED: ACETAMINOPHEN 650 MG/20.3 ML LIQUID UDC GT PRN (21:30)
[2017-11-02] MEDS ORDERED: ACETAMINOPHEN 650 MG SUPP.RECT RC PRN (21:30)
[2017-11-02] MEDS ORDERED: MAGNESIUM HYDROXIDE 30 ML LIQUID UDC PO PRN (21:30)
[2017-11-02] MEDS ORDERED: ONDANSETRON 4 MG/2 ML VIAL IV PRN (21:30)
[2017-11-02] MEDS: IV NS 1000 ML 1,000 ML IV PRN (22:35)
[2017-11-02] MEDS ORDERED: GLUCERNA 1.2 1000ML LIQUID GT PRN (23:00)
[2017-11-03] VITALS: BP 131/60
[2017-11-03] MEDS: GLUCERNA 1.2 1000ML LIQUID GT PRN (00:48)
[2017-11-03 04:04] VITALS: BP 124/70
--- NOTE | 2017-11-03 06:13 | NUR ---
PATIENT AWAKE, NON VERBAL BUT RESPONSE TO NAME, AND PAIN SCALE, RYTHM SINUS NO SOB NOTED, TOLERATE GTF, NO N/V NO DIARRHEA NOTED, NO DIARRHEA NOTED, NO RESIDUAL NOTED. KEPT LEFT ARM ELEVATED, DUE TO SWELLING, TURN AND REPOSITION , KEPT CLEAN AND DRY.KEPT COMFORTABLE.
[2017-11-03 06:30] LABS: BASOPHILS # (AUTO) 0.1 K/uL (0.0-8.0); EOSINOPHILS # (AUTO) 0.1 K/uL (0.0-0.7); EOSINOPHILS % (AUTO) 1.6 % (0.0-7.0); HEMATOCRIT 34.2 % (31.2-41.9); HEMOGLOBIN 11.9 g/dL (10.9-14.3); LYMPHOCYTES # (AUTO) 1.3 K/uL (20.0-40.0); MEAN CORPUSCULAR HEMOGLOBIN 33.6 uug (24.7-32.8); MEAN CORPUSCULAR HGB CONC 35 g/dL (32.3-35.6); MEAN CORPUSCULAR VOLUME 96.4 fL (75.5-95.3); MONOCYTES # (AUTO) 0.4 K/uL (2.0-10.0); MONOCYTES % (AUTO) 6.4 % (0.0-11.0); NEUTROPHILS # (AUTO) 4.2 K/uL (1.8-8.9); PLATELET COUNT (AUTO) 180 K/uL (179-408); RED BLOOD CELL COUNT(AUTO) 3.54 MIL/uL (3.63-4.92)
[2017-11-03] MEDS: PANTOPRAZOLE ORAL SUSPENSION 40 MG SUSPDR.PKT GT SCH (06:37)
[2017-11-03 06:46] LABS: CARBON DIOXIDE 26 mmol/L (21-32); CHLORIDE 106 mmol/L (98-107); CHOLESTEROL 129 mg/dL (<200); CREATININE 0.6 mg/dL (0.6-1.3); GLUCOSE 128 mg/dL (74-106); HDL CHOLESTEROL 45 mg/dL (40-60); MAGNESIUM 2.1 mg/dL (1.8-2.4); PHOSPHOROUS 3.5 mg/dL (2.5-4.9); POTASSIUM 3.9 mmol/L (3.5-5.1); TRIGLYCERIDES 148 MG/DL (30-150); UREA NITROGEN, BLOOD 16 mg/dL (7-18)
[2017-11-03 08:00] VITALS: BP 154/78
[2017-11-03] MEDS ORDERED: Medication Not On Formulary EA (Dexlansoprazole (Dexilant) 30 MG) GT SCH (09:00)
[2017-11-03] MEDS ORDERED: MULTIVITAMINS GT SCH (09:00)
[2017-11-03] MEDS ORDERED: MULTIVITAMINS 5 ML LIQUID UDC GT SCH (09:00)
[2017-11-03] MEDS: MULTIVITAMINS,THERAPEUTIC TABLET GT SCH (09:26)
[2017-11-03 11:57] VITALS: BP 140/66
[2017-11-03] MEDS: IV NS 1000 ML 1,000 ML IV PRN (14:28)
[2017-11-03 15:54] VITALS: BP 136/68
[2017-11-03] MEDS: RIVAROXABAN 10 MG TABLET PO SCH (17:56)
[2017-11-03 19:40] VITALS: BP 113/62
--- NOTE | 2017-11-03 19:45 | NUR ---
RECEIVED PATIENT IN BED, AWAKE BUT NON VERBAL, HOB ELEVATED, ON GTF TOLERATE WELL, NO RESIDUAL NOTED, NO NAUSEA NO VOMITING NOTED, NO S/S OF PAIN AT THIS TIME, KEPT COMFORTABLE.
[2017-11-04] MEDS: IV NS 1000 ML 1,000 ML IV PRN ×2 (03:28→19:51)
[2017-11-04] MEDS: GLUCERNA 1.2 1000ML LIQUID GT PRN (03:29)
[2017-11-04] MEDS: Z GUARD REMEDY PASTE 57 GM TUBE TOP PRN ×2 (03:31→17:00)
[2017-11-04 04:00] VITALS: BP 107/72
--- NOTE | 2017-11-04 05:53 | NUR ---
PATIENT IS LIGHT SLEEPER, NO S/S OF SOB NO S/S OF CHEST PAIN NOTED, HOB ELEVATED, TOLERATE GTF, NO NAUSEA NO VOMITING NOTED, NO DIARRHEA. NO S/S OF CHEST CONGESTION NOTED, KEPT LEFT ARM ELEVATED DUE LYMPEDEMIA. CONT ON OXYGEN, NO S/S OF DESATURATION NOTED. GT CARE DONE, KEPT CLEAN DRY AND COMFORTABLE.
[2017-11-04] MEDS: PANTOPRAZOLE ORAL SUSPENSION 40 MG SUSPDR.PKT GT SCH (05:59)
--- NOTE | 2017-11-04 07:35 | NUR ---
RECEIVED PATIENT IN BED AWAKE MAKES EYE CONTACT BUT IS NON VERBAL AT THIS TIME ALL NEEDS MUST BE ANTICIPATED AND SATISFIED MAX ASSIST FOR ALL ADL TURNING AND REPOSITIONING.GT ON HOLD AT THIS TIME WILL RESUME AT 0800 NO RESIDUAL AT THIS TIME.IVF IN PROGRESS ORDERED WITH NO S/S OF INFILTERATION ON SITE PATIENT MADE COMFORTABLE AND WILL CONTINUE TO OBSERVE.
[2017-11-04] MEDS: MULTIVITAMINS,THERAPEUTIC TABLET GT SCH (08:32)
[2017-11-04 11:47] VITALS: BP 135/57
--- NOTE | 2017-11-04 12:51 | NUR ---
UNCHANGED AT THIS TIME REMAIN ON GT FEEDINGS ORDERED WITH NO RESIDUAL ALL NEEDS ANTICIPATED MADE COMFORTABLE.
[2017-11-04 15:30] VITALS: BP 138/70
[2017-11-04] MEDS: RIVAROXABAN 10 MG TABLET PO SCH (17:01)
--- NOTE | 2017-11-04 19:30 | NUR ---
Received patient in stable condition. No acute distress at start of shift. Patient is confused & unable to communicate & make her needs known. Vital signs within range at start of shift. Pertinent assessment completed. On O2 via NC at 1L. Noted with a right hand Peripheral IV 20G running with NS at 75cc/hr. No signs of infiltration or swelling at IV site. Patient also noted with a GT currently running with Glycerna 1.2 at 45cc/hr. Patient is contracted. Bed in low position, locked, x2 side rails up. Will continue to monitor through shift.
[2017-11-04 19:50] VITALS: BP 126/61
[2017-11-04] MEDS: Z GUARD REMEDY PASTE 57 GM TUBE TOP SCH (20:22)
[2017-11-05 04:23] VITALS: BP 140/65
[2017-11-05] MEDS: PANTOPRAZOLE ORAL SUSPENSION 40 MG SUSPDR.PKT GT SCH (06:35)
--- NOTE | 2017-11-05 06:36 | NUR ---
Patient stable through shift with no acute distress. Vital signs within range. Patient slept intermittently during the night. GT feeding stopped promptly at 0400. All medications administered per MD order. Skin care provided. Diaper changed per soiling. Patient turned & repositioned every 2 hours. Safety & comfort measures provided. Will endorse to day shift nurse.
[2017-11-05] MEDS ORDERED: LEVOTHYROXINE SODIUM 88 MCG TABLET PO SCH (07:00)
--- NOTE | 2017-11-05 07:43 | NUR ---
RECEIVED PATIENT IN BED AWAKE MAKES GOOD EYE CONTACT BUT NON VERBAL ALL NEEDS ANTICIPATED AND SATISFIED TOTALLY DEPENDENT FOR ALL.PATIENT HAS CONTRACTED UPPER AND LOWER EXTREMITIES TURNED AND REPOSITIONED Q2H WITH PERINEAL CARE KEPT CLEAN AND DRY.ON O2 AT 2L/M BY NASAL CANULLA WITH NO SHORTNESS OF BREATH AT THIS TIME.GT FEEDING IS OFF AT THIS TIME PER SCHEDULE RESIDUAL IS ZERO AT THIS TIME MADE COMFORTABLE
[2017-11-05] MEDS: MULTIVITAMINS,THERAPEUTIC TABLET GT SCH (08:19)
[2017-11-05] MEDS: Z GUARD REMEDY PASTE 57 GM TUBE TOP SCH (08:20)
[2017-11-05] MEDS: IV NS 1000 ML 1,000 ML IV PRN (08:25)
[2017-11-05 11:21] VITALS: BP 126/63
--- NOTE | 2017-11-05 12:23 | NUR ---
PATIENT SEEN BY NAKUL MOY SOUND TECHNICIAN SUPERVISOR WITH ORDER TO DISCHARGE PATIENT BACK TO [facility] TODAY AND PER THE TUBE ROOM CASHIERREEL AND REWINDER OPERATOR WORKER PATIENTS DAUGHTER IS AWARE AND OKAYED THE RETURN BACK TO [facility] BUT STATED WILL CALL [facility]ED AVAIL[facility]
--- NOTE | 2017-11-05 12:44 | NUR ---
PER THE CASE MANAGEMENT [facility] AND [facility] HAS ACCEPTED THIS PATIENT TODAY CALLED THE AMBULANCE AND THE FIRST AVAILABLE OPENING IS 1430 TODAY.
--- NOTE | 2017-11-05 13:15 | NUR ---
CALLED [facility] AND REPORT GIVEN TO JEFFERSON NURSING PILATES COORDINATOR FOR CONTINUING CARE PATIENT WAS STARTED ON LEVOTYROXINE WILL NEED TO HAVE DR SIDDIQUI TO RECHECK THE TYROID TEST AND ADJUST MEDICATION NEEDED AND SHE EXPRESSED UNDERSTANDING.
--- NOTE | 2017-11-05 14:30 | NUR ---
PATIENT DISCHARGED PICKED UP BY THE AMBULANCE IN SATISFACTORY CONDITION PATIENT HAS NO PERSONAL BELONGINGS
== END 2017-11-05 14:30 | DRG 420 ==
LOC: ER 14:36 → TELE 17:01 → MED 11-03 16:30
PROVIDERS: ADMIT Hospitalist; ATTEND Hospitalist
DX: E11.649 Type 2 diabetes mellitus with hypoglycemia without coma (principal); G93.41 Metabolic encephalopathy; E44.0 Moderate protein-calorie malnutrition; D68.59 Other primary thrombophilia; R53.2 Functional quadriplegia; F03.90 Unspecified dementia, unspecified severity, without behavioral disturbance, psychotic disturbance, mood disturbance, and anxiety; R47.01 Aphasia; Z93.1 Gastrostomy status; Z79.01 Long term (current) use of anticoagulants; Z86.711 Personal history of pulmonary embolism; I10 Essential (primary) hypertension; E03.9 Hypothyroidism, unspecified; Z98.2 Presence of cerebrospinal fluid drainage device; Z88.2 Allergy status to sulfonamides; Z68.1 Body mass index [BMI] 19.9 or less, adult
CPT/HCPCS: 36415; 70030-TC; 70450; 71045; 83605; 83735; 84100; 84443; 85025; 85730; 87040; 87086; 93005; A4663; C1758; J7030

== ENCOUNTER 2018-07-20 23:02 | Inpatient (IN) | payer MEDICAID, OTHER ==
[~2018-07-20] VITALS: Ht 152.4 cm; Wt 50.9 kg
[~2018-07-20 23:02] MED LIST changes: -ACID1TAB4 GT; -ALBU1.25 NEB; +DEXL60CA3 GT; -HYDR-3326 PO; -IPRA0.2S6 NEB; -MENT71OI TOP; -Nut.tx.glucose Intolerance,Soy GT; -PANT40SU2 GT
[2018-07-20] MEDS ORDERED: RIVA20TA GT (23:37)
[2018-07-20] MEDS ORDERED: OMEP20CA10 GT (23:37)
[2018-07-20] MEDS ORDERED: LEVO88TA5 GT (23:37)
[2018-07-21] MEDS ORDERED: IV NS 1000 ML 1,000 ML IV ONE (00:55)
[2018-07-21 01:15] LABS: ALANINE AMINOTRANSFERASE 22 U/L (14-59); ALKALINE PHOSPHATASE 69 U/L (50-136); ASPARTATE AMINOTRANSFERASE 16 U/L (15-37); BILIRUBIN,DIRECT 0.1 mg/dL (0.0-0.2); BILIRUBIN,TOTAL 0.9 mg/dL (0.2-1.0); CARBON DIOXIDE 29 mmol/L (21-32); CHLORIDE 105 mmol/L (98-107); CREATININE 0.5 mg/dL (0.6-1.3); GLUCOSE 105 mg/dL (74-106); POTASSIUM 4.2 mmol/L (3.5-5.1); TOTAL PROTEIN, SERUM 7.1 g/dL (6.4-8.2); UREA NITROGEN, BLOOD 17 mg/dL (7-18)
[2018-07-21] MEDS ORDERED: MAGNESIUM HYDROXIDE 30 ML LIQUID UDC PO PRN (01:15)
[2018-07-21] MEDS ORDERED: HYDROCODONE/APAP 5-325MG TABLET PO PRN (01:15)
[2018-07-21] MEDS ORDERED: ONDANSETRON 4 MG/2 ML VIAL IV PRN (01:15)
[2018-07-21] MEDS ORDERED: ACETAMINOPHEN 325 MG TABLET PO PRN (01:15)
[2018-07-21] MEDS ORDERED: IV D5 1/2 NS 1000 ML 1,000 ML IV SCH (01:15)
[2018-07-21] MEDS ORDERED: Z GUARD REMEDY PASTE 57 GM TUBE TOP PRN (01:15)
[2018-07-21 01:24] LABS: BASOPHILS % (AUTO) 0.6 % (0.0-2.0); EOSINOPHILS # (AUTO) 0.1 K/uL (0.0-0.7); EOSINOPHILS % (AUTO) 2.8 % (0.0-7.0); HEMATOCRIT 35.2 % (31.2-41.9); HEMOGLOBIN 12.1 g/dL (10.9-14.3); LYMPHOCYTES # (AUTO) 1.3 K/uL (20.0-40.0); MEAN CORPUSCULAR HEMOGLOBIN 32.6 uug (24.7-32.8); MEAN CORPUSCULAR HGB CONC 34 g/dL (32.3-35.6); MONOCYTES # (AUTO) 0.3 K/uL (2.0-10.0); MONOCYTES % (AUTO) 6.4 % (0.0-11.0); NEUTROPHILS % (AUTO) 63.2 % (38.5-71.5); PLATELET COUNT (AUTO) 202 K/uL (179-408); WHITE BLOOD COUNT (AUTO) 4.7 K/uL (3.8-11.8)
[2018-07-21 03:15] VITALS: BP 125/48
[2018-07-21] MEDS ORDERED: DEXTROSE 50% 50 ML DISP.SYRIN IV PRN (04:45)
[2018-07-21] MEDS: BLOOD SUGAR DIAGNOSTIC 1 EACH STRIP VI SCH ×4 (06:00→17:23)
[2018-07-21] MEDS ORDERED: PANTOPRAZOLE SODIUM IV 40 MG in IV DEXTROSE 5% 100 ML IV SCH (09:00)
[2018-07-21] MEDS: IV D5 1/2 NS 1000 ML 1,000 ML IV PRN ×2 (09:04→22:13)
[2018-07-21 12:11] VITALS: BP 106/54
[2018-07-21] MEDS: FAMOTIDINE. 20 MG/2 ML VIAL IV SCH (13:29)
[2018-07-21 15:27] VITALS: BP 139/65
[2018-07-21] MEDS: INSULIN REGULAR, HUMAN 300 UNIT/3 ML VIAL SQ PRN (17:00)
[2018-07-21 21:13] VITALS: BP 135/49
[2018-07-22] MEDS: BLOOD SUGAR DIAGNOSTIC 1 EACH STRIP VI SCH ×4 (00:16→19:54)
[2018-07-22 04:27] VITALS: BP 136/63
[2018-07-22] MEDS: LEVOTHYROXINE SODIUM 88 MCG TABLET GT SCH (06:00)
[2018-07-22 06:37] LABS: BASOPHILS % (AUTO) 0.7 % (0.0-2.0); EOSINOPHILS # (AUTO) 0.1 K/uL (0.0-0.7); EOSINOPHILS % (AUTO) 2.8 % (0.0-7.0); HEMATOCRIT 35.9 % (31.2-41.9); HEMOGLOBIN 12.1 g/dL (10.9-14.3); LYMPHOCYTES # (AUTO) 1.4 K/uL (20.0-40.0); LYMPHOCYTES % (AUTO) 38.2 % (20.5-51.5); MEAN CORPUSCULAR HEMOGLOBIN 32.3 uug (24.7-32.8); MEAN CORPUSCULAR HGB CONC 34 g/dL (32.3-35.6); MEAN CORPUSCULAR VOLUME 95.4 fL (75.5-95.3); MONOCYTES # (AUTO) 0.2 K/uL (2.0-10.0); MONOCYTES % (AUTO) 6.5 % (0.0-11.0); NEUTROPHILS % (AUTO) 51.8 % (38.5-71.5); PLATELET COUNT (AUTO) 203 K/uL (179-408); RED BLOOD CELL COUNT(AUTO) 3.76 MIL/uL (3.63-4.92); WHITE BLOOD COUNT (AUTO) 3.8 K/uL (3.8-11.8)
[2018-07-22 06:48] LABS: CARBON DIOXIDE 27 mmol/L (21-32); CHLORIDE 106 mmol/L (98-107); CREATININE 0.6 mg/dL (0.6-1.3); GLUCOSE 128 mg/dL (74-106); PHOSPHOROUS 3.2 mg/dL (2.5-4.9); POTASSIUM 3.7 mmol/L (3.5-5.1); UREA NITROGEN, BLOOD 8 mg/dL (7-18)
[2018-07-22] MEDS ORDERED: MAGNESIUM HYDROXIDE 30 ML LIQUID UDC GT PRN (06:58)
[2018-07-22] MEDS ORDERED: HYDROCODONE/APAP 5-325MG TABLET GT PRN (06:59)
[2018-07-22] MEDS: MULTIVITAMINS,THERAPEUTIC TABLET GT SCH (08:16)
[2018-07-22] MEDS: FAMOTIDINE. 20 MG/2 ML VIAL IV SCH (08:17)
[2018-07-22] MEDS: INSULIN REGULAR, HUMAN 300 UNIT/3 ML VIAL SQ PRN (08:52)
[2018-07-22 09:00] VITALS: BP 133/66
[2018-07-22] MEDS ORDERED: Medication Not On Formulary EA (Omeprazole 20 MG) GT SCH (09:00)
[2018-07-22] MEDS ORDERED: MULTIVITAMINS GT SCH (09:00)
[2018-07-22 11:00] VITALS: BP 170/81
[2018-07-22 15:37] VITALS: BP 171/76
[2018-07-22] MEDS: IV D5 1/2 NS 1000 ML 1,000 ML IV PRN (16:05)
[2018-07-22] MEDS ORDERED: ESMOLOL HCL 100 MG/10 ML VIAL IV ONE (16:41)
[2018-07-22] MEDS ORDERED: CEFAZOLIN 1 G VIAL MC ONE (16:41)
[2018-07-22] MEDS ORDERED: ETOMIDATE 20 MG/10 ML VIAL MC ONE (16:41)
[2018-07-22] MEDS ORDERED: SIMETHICONE 40 MG/0.6 ML, 30ML BOTTLE MC ONE (16:41)
[2018-07-22] MEDS ORDERED: LIDOCAINE-MPF 2% 5 ML VIAL MC ONE (16:41)
[2018-07-22] MEDS ORDERED: IV NORMAL SALINE 1000 ML BAG IV ONE (16:41)
[2018-07-22 20:00] VITALS: BP 133/71
[2018-07-23] MEDS: BLOOD SUGAR DIAGNOSTIC 1 EACH STRIP VI SCH ×3 (00:04→11:34)
[2018-07-23 05:10] VITALS: BP 144/80
[2018-07-23] MEDS: IV D5 1/2 NS 1000 ML 1,000 ML IV PRN (06:00)
[2018-07-23] MEDS: LEVOTHYROXINE SODIUM 88 MCG TABLET GT SCH (06:44)
[2018-07-23] MEDS: INSULIN REGULAR, HUMAN 300 UNIT/3 ML VIAL SQ PRN (06:48)
[2018-07-23] MEDS ORDERED: GLUCERNA 1.2 1000ML LIQUID GT SCH (07:30)
[2018-07-23] MEDS ORDERED: GLUCERNA 1.2 1000ML LIQUID GT PRN (07:30)
[2018-07-23 07:37] LABS: CARBON DIOXIDE 24 mmol/L (21-32); CHLORIDE 107 mmol/L (98-107); CREATININE 0.5 mg/dL (0.6-1.3); GLUCOSE 143 mg/dL (74-106); MAGNESIUM 1.9 mg/dL (1.8-2.4); POTASSIUM 3.3 mmol/L (3.5-5.1); UREA NITROGEN, BLOOD 7 mg/dL (7-18)
[2018-07-23] MEDS: MULTIVITAMINS,THERAPEUTIC TABLET GT SCH (08:01)
[2018-07-23] MEDS ORDERED: PANTOPRAZOLE ORAL SUSPENSION 40 MG SUSPDR.PKT GT SCH (09:00)
[2018-07-23 10:14] LABS: BASOPHILS % (AUTO) 0.5 % (0.0-2.0); EOSINOPHILS # (AUTO) 0.1 K/uL (0.0-0.7); EOSINOPHILS % (AUTO) 2.4 % (0.0-7.0); HEMATOCRIT 34.2 % (31.2-41.9); HEMOGLOBIN 11.7 g/dL (10.9-14.3); LYMPHOCYTES # (AUTO) 0.9 K/uL (20.0-40.0); LYMPHOCYTES % (AUTO) 16.4 % (20.5-51.5); MEAN CORPUSCULAR HEMOGLOBIN 32.3 uug (24.7-32.8); MEAN CORPUSCULAR HGB CONC 34 g/dL (32.3-35.6); MEAN CORPUSCULAR VOLUME 94.5 fL (75.5-95.3); MONOCYTES # (AUTO) 0.4 K/uL (2.0-10.0); NEUTROPHILS % (AUTO) 72.7 % (38.5-71.5); PLATELET COUNT (AUTO) 189 K/uL (179-408); RED BLOOD CELL COUNT(AUTO) 3.62 MIL/uL (3.63-4.92)
[2018-07-23 10:24] LABS: WHITE BLOOD COUNT (AUTO) 5.6 K/uL (3.8-11.8)
[2018-07-23 10:57] VITALS: BP 102/56
[2018-07-23] MEDS ORDERED: POTASSIUM CHLORIDE 20 MEQ POWDER PACKET GT ONE (12:00)
[2018-07-23] MEDS ORDERED: NUT.237L30 GT (12:00)
[2018-07-23 14:28] LABS: *BILIRUBIN,URIN NEGATIVE (NEGATIVE); *BLOOD, URINE NEGATIVE (NEGATIVE); *CLARITY,URINE CLEAR (CLEAR); *COLOR,URINE YELLOW (YELLOW); *KETONES,URINE NEGATIVE (NEGATIVE); *UROBILINOGEN,URINE 0.2 E.U./dl (NORMAL); LEUKOCYTE ESTERASE ,URINE NEGATIVE (NEGATIVE); NITRITE, URINE NEGATIVE (NEGATIVE); UGLUCOSE NEGATIVE (NEGATIVE)
[2018-07-23 14:35] VITALS: BP 127/69
[2018-07-23] MEDS ORDERED: RIVAROXABAN 10 MG TABLET GT SCH (18:00)
== END 2018-07-23 16:42 | DRG 254 ==
LOC: ER 23:04 → MEDSURG3 07-21 00:55
PROVIDERS: ADMIT Student in an Organized Health Care Education/Training Program; ATTEND Registered Nurse
PROC: 0DH63UZ Insertion of Feeding Device into Stomach, Percutaneous Approach (ICD-10-PCS; principal; 2018-07-22)
DX: Z43.1 Encounter for attention to gastrostomy (principal); G93.49 Other encephalopathy; J96.10 Chronic respiratory failure, unspecified whether with hypoxia or hypercapnia; R53.2 Functional quadriplegia; R13.10 Dysphagia, unspecified; Z99.81 Dependence on supplemental oxygen; R47.01 Aphasia; E44.1 Mild protein-calorie malnutrition; F03.90 Unspecified dementia, unspecified severity, without behavioral disturbance, psychotic disturbance, mood disturbance, and anxiety; E11.9 Type 2 diabetes mellitus without complications; I10 Essential (primary) hypertension; E03.9 Hypothyroidism, unspecified; Z98.2 Presence of cerebrospinal fluid drainage device; Z79.01 Long term (current) use of anticoagulants; Z86.711 Personal history of pulmonary embolism; Z68.21 Body mass index [BMI] 21.0-21.9, adult
CPT/HCPCS: 36415; 43761; 70030-TC; 71045; 83735; 84100; 85025; 85730; 87086; 93005; A4217; A4663; C1758; G0378; J0690; J1815; J3490; J7030

== ENCOUNTER 2018-11-24 22:37 | Inpatient (IN) | payer OTHER ==
[~2018-11-24] VITALS: Ht 165.1 cm; Wt 63.1 kg
[~2018-11-24 22:37] MED LIST changes: -DEXL60CA3 GT; +LEVO88TA5 GT; +NUT.237L30 GT; +OMEP20CA11 GT; -RIVA10TA PO; +RIVA20TA GT
[2018-11-24] MEDS ORDERED: MULT1TAB73 GT (22:51)
[2018-11-24] MEDS ORDERED: MAGN400O6 GT (22:51)
[2018-11-24] MEDS ORDERED: RIVAROXABAN GT (22:51)
[2018-11-24] MEDS ORDERED: IV NORMAL SALINE 1000 ML BAG IV ONE (23:15)
[2018-11-24 23:51] LABS: BASOPHILS % (AUTO) 0.4 % (0.0-2.0); CREATININE 0.6 mg/dL (0.6-1.3); EOSINOPHILS % (AUTO) 0.2 % (0.0-7.0); HEMATOCRIT 37.9 % (31.2-41.9); HEMOGLOBIN 12.7 g/dL (10.9-14.3); LYMPHOCYTES # (AUTO) 1.5 K/uL (20.0-40.0); LYMPHOCYTES % (AUTO) 13.4 % (20.5-51.5); MEAN CORPUSCULAR HEMOGLOBIN 33.3 uug (24.7-32.8); MEAN CORPUSCULAR HGB CONC 34 g/dL (32.3-35.6); MEAN CORPUSCULAR VOLUME 99.4 fL (75.5-95.3); MONOCYTES # (AUTO) 0.5 K/uL (2.0-10.0); MONOCYTES % (AUTO) 4.8 % (0.0-11.0); NEUTROPHILS # (AUTO) 9.1 K/uL (1.8-8.9); NEUTROPHILS % (AUTO) 81.2 % (38.5-71.5); PLATELET COUNT (AUTO) 261 K/uL (179-408); POTASSIUM 4.2 mmol/L (3.5-5.1); RED BLOOD CELL COUNT(AUTO) 3.82 MIL/uL (3.63-4.92); WHITE BLOOD COUNT (AUTO) 11.2 K/uL (3.8-11.8)
[2018-11-25 00:03] LABS: BILIRUBIN,DIRECT 0.2 mg/dL (0.0-0.2); BILIRUBIN,TOTAL 0.7 mg/dL (0.2-1.0); TOTAL PROTEIN, SERUM 7.7 g/dL (6.4-8.2)
[2018-11-25 00:10] LABS: *BILIRUBIN,URIN NEGATIVE (NEGATIVE); *BLOOD, URINE NEGATIVE (NEGATIVE); *CLARITY,URINE CLEAR (CLEAR); *COLOR,URINE YELLOW (YELLOW); *KETONES,URINE NEGATIVE (NEGATIVE); LEUKOCYTE ESTERASE ,URINE NEGATIVE (NEGATIVE); NITRITE, URINE NEGATIVE (NEGATIVE); UGLUCOSE NEGATIVE (NEGATIVE)
[2018-11-25 00:35] LABS: BACTERIA,URINE FEW /HPF (NONE SEEN); MUCUS,URINE FEW /LPF (0-FEW); SQUAMOUS EPITHELIAL CELL,UR FEW /HPF (NONE SEEN); URINE AMORPHOUS PHOSPHATES FEW /HPF; YEAST,URINE FEW /HPF (NONE SEEN)
[2018-11-25] MEDS ORDERED: LEVOFLOXACIN 500 MG/D5W 100ML PIGGYBACK IV ONE (00:45)
[2018-11-25] MEDS ORDERED: LEVOFLOXACIN 500 MG/D5W 100 ML ONE (00:51)
[2018-11-25] MEDS ORDERED: ONDANSETRON 4 MG/2 ML VIAL IV PRN (01:30)
[2018-11-25] MEDS ORDERED: LEVOFLOXACIN 500 MG/D5W 500 MG in PREMIXED 1 EACH IV SCH (01:30)
[2018-11-25] MEDS ORDERED: MAGNESIUM HYDROXIDE 30 ML LIQUID UDC PO PRN (01:30)
[2018-11-25] MEDS ORDERED: ENOXAPARIN SODIUM 40 MG/0.4 ML DISP.SYRIN SQ SCH (01:30)
[2018-11-25] MEDS ORDERED: ACETAMINOPHEN 325 MG TABLET PO PRN (01:30)
[2018-11-25] MEDS ORDERED: Z GUARD REMEDY PASTE 57 GM TUBE TOP PRN (01:30)
[2018-11-25 03:00] VITALS: BP 129/76
[2018-11-25] MEDS: IV NS 1000 ML 1,000 ML IV PRN ×2 (03:13→20:00)
[2018-11-25 05:38] VITALS: BP 115/63
[2018-11-25] MEDS: LEVOTHYROXINE SODIUM 88 MCG TABLET GT SCH (06:40)
[2018-11-25] MEDS: PANTOPRAZOLE ORAL SUSPENSION 40 MG SUSPDR.PKT GT SCH (06:40)
[2018-11-25] MEDS ORDERED: Medication Not On Formulary EA (Omeprazole 20 MG) GT SCH (09:00)
[2018-11-25] MEDS ORDERED: Medication Not On Formulary EA ([Rivaroxaban] 15 MG) GT SCH (09:00)
[2018-11-25 11:42] VITALS: BP 138/74
[2018-11-25] MEDS: MULTIVITAMINS,THERAPEUTIC TABLET GT SCH (11:43)
[2018-11-25] MEDS: GLUCERNA 1.2 1000ML LIQUID GT PRN (14:34)
[2018-11-25 15:59] VITALS: BP 137/70
[2018-11-25] MEDS: RIVAROXABAN 15 MG TABLET PO SCH (17:12)
[2018-11-25 20:00] VITALS: BP 131/69
[2018-11-25] MEDS ORDERED: LEVOFLOXACIN/D5W 250 MG in PREMIX 1 EA IV SCH (21:00)
[2018-11-26 05:44] VITALS: BP 139/85
[2018-11-26] MEDS: PANTOPRAZOLE ORAL SUSPENSION 40 MG SUSPDR.PKT GT SCH (06:31)
[2018-11-26] MEDS: LEVOTHYROXINE SODIUM 88 MCG TABLET GT SCH (06:31)
[2018-11-26] MEDS: MULTIVITAMINS,THERAPEUTIC TABLET GT SCH (08:36)
[2018-11-26 10:49] LABS: BASOPHILS % (AUTO) 0.6 % (0.0-2.0); EOSINOPHILS # (AUTO) 0.1 K/uL (0.0-0.7); EOSINOPHILS % (AUTO) 1.6 % (0.0-7.0); HEMOGLOBIN 12.1 g/dL (10.9-14.3); LYMPHOCYTES # (AUTO) 1.6 K/uL (20.0-40.0); LYMPHOCYTES % (AUTO) 24.7 % (20.5-51.5); MEAN CORPUSCULAR HEMOGLOBIN 33.5 uug (24.7-32.8); MEAN CORPUSCULAR HGB CONC 34 g/dL (32.3-35.6); MEAN CORPUSCULAR VOLUME 99.5 fL (75.5-95.3); MONOCYTES # (AUTO) 0.3 K/uL (2.0-10.0); MONOCYTES % (AUTO) 4.3 % (0.0-11.0); NEUTROPHILS # (AUTO) 4.4 K/uL (1.8-8.9); NEUTROPHILS % (AUTO) 68.8 % (38.5-71.5); PLATELET COUNT (AUTO) 232 K/uL (179-408); RED BLOOD CELL COUNT(AUTO) 3.62 MIL/uL (3.63-4.92); WHITE BLOOD COUNT (AUTO) 6.4 K/uL (3.8-11.8)
[2018-11-26 11:00] LABS: CARBON DIOXIDE 26 mmol/L (21-32); CHLORIDE 107 mmol/L (98-107); CHOLESTEROL 146 mg/dL (<200); CREATININE 0.4 mg/dL (0.6-1.3); GLUCOSE 132 mg/dL (74-106); HDL CHOLESTEROL 36 mg/dL (40-60); MAGNESIUM 2.1 mg/dL (1.8-2.4); PHOSPHOROUS 2.8 mg/dL (2.5-4.9); POTASSIUM 3.7 mmol/L (3.5-5.1); TRIGLYCERIDES 80 MG/DL (30-150); UREA NITROGEN, BLOOD 19 mg/dL (7-18)
[2018-11-26 11:08] LABS: THYROID STIMULATING HORMONE 13.615 mIU/mL (0.358-3.740)
[2018-11-26 11:56] VITALS: BP 154/82
[2018-11-26 15:58] VITALS: BP 133/76
[2018-11-26] MEDS: GLUCERNA 1.2 1000ML LIQUID GT PRN (18:03)
[2018-11-26] MEDS: IV NS 1000 ML 1,000 ML IV PRN (18:03)
[2018-11-26] MEDS: RIVAROXABAN 15 MG TABLET PO SCH (18:04)
[2018-11-26 20:00] VITALS: BP 106/58
[2018-11-26] MEDS ORDERED: LEVOFLOXACIN 250 MG TABLET GT SCH (21:00)
[2018-11-27 04:31] VITALS: BP 142/70
[2018-11-27] MEDS: PANTOPRAZOLE ORAL SUSPENSION 40 MG SUSPDR.PKT GT SCH (06:43)
[2018-11-27] MEDS: LEVOTHYROXINE SODIUM 88 MCG TABLET GT SCH (06:43)
[2018-11-27 06:46] LABS: BASOPHILS % (AUTO) 0.7 % (0.0-2.0); EOSINOPHILS # (AUTO) 0.1 K/uL (0.0-0.7); EOSINOPHILS % (AUTO) 1.6 % (0.0-7.0); HEMOGLOBIN 12.3 g/dL (10.9-14.3); LYMPHOCYTES # (AUTO) 1.6 K/uL (20.0-40.0); LYMPHOCYTES % (AUTO) 26.5 % (20.5-51.5); MEAN CORPUSCULAR HEMOGLOBIN 32.8 uug (24.7-32.8); MEAN CORPUSCULAR HGB CONC 34 g/dL (32.3-35.6); MEAN CORPUSCULAR VOLUME 96.1 fL (75.5-95.3); MONOCYTES # (AUTO) 0.3 K/uL (2.0-10.0); MONOCYTES % (AUTO) 4.8 % (0.0-11.0); NEUTROPHILS % (AUTO) 66.4 % (38.5-71.5); PLATELET COUNT (AUTO) 278 K/uL (179-408); RED BLOOD CELL COUNT(AUTO) 3.74 MIL/uL (3.63-4.92)
[2018-11-27 06:54] LABS: CARBON DIOXIDE 29 mmol/L (21-32); CHLORIDE 104 mmol/L (98-107); CREATININE 0.6 mg/dL (0.6-1.3); GLUCOSE 136 mg/dL (74-106); MAGNESIUM 2.1 mg/dL (1.8-2.4); PHOSPHOROUS 3.5 mg/dL (2.5-4.9); POTASSIUM 3.9 mmol/L (3.5-5.1); UREA NITROGEN, BLOOD 16 mg/dL (7-18)
[2018-11-27] MEDS: MULTIVITAMINS,THERAPEUTIC TABLET GT SCH (08:40)
[2018-11-27 11:49] VITALS: BP 105/69
[2018-11-27] MEDS: NEOMY/BACITRAC/POLYMI OINT 28.35 GM TUBE TOP SCH ×2 (13:38→21:04)
[2018-11-27 16:07] VITALS: BP 126/48
[2018-11-27] MEDS: GLUCERNA 1.2 1000ML LIQUID GT PRN (17:15)
[2018-11-27] MEDS: RIVAROXABAN 15 MG TABLET PO SCH (17:15)
[2018-11-27 20:41] VITALS: BP 145/65
[2018-11-27] MEDS: LEVOFLOXACIN 500 MG TABLET GT SCH (21:03)
[2018-11-28 04:45] VITALS: BP 140/69
[2018-11-28] MEDS: LEVOTHYROXINE SODIUM 100 MCG TABLET GT SCH (06:11)
[2018-11-28] MEDS: PANTOPRAZOLE ORAL SUSPENSION 40 MG SUSPDR.PKT GT SCH (06:39)
[2018-11-28] MEDS: MULTIVITAMINS,THERAPEUTIC TABLET GT SCH (08:46)
[2018-11-28] MEDS: NEOMY/BACITRAC/POLYMI OINT 28.35 GM TUBE TOP SCH ×2 (08:47→21:01)
[2018-11-28 11:40] VITALS: BP 137/67
[2018-11-28] MEDS ORDERED: FLUCONAZOLE 100 MG TABLET GT SCH (11:45)
[2018-11-28] MEDS: FLUCONAZOLE 100 MG TABLET GT SCH (13:03)
[2018-11-28 15:50] VITALS: BP 119/57
[2018-11-28] MEDS: GLUCERNA 1.2 1000ML LIQUID GT PRN (16:32)
[2018-11-28] MEDS: RIVAROXABAN 15 MG TABLET PO SCH (17:14)
[2018-11-28] MEDS: LEVOFLOXACIN 500 MG TABLET GT SCH (21:01)
[2018-11-28 22:49] VITALS: BP 149/73
[2018-11-29 04:13] VITALS: BP 142/76
[2018-11-29] MEDS: PANTOPRAZOLE ORAL SUSPENSION 40 MG SUSPDR.PKT GT SCH (06:39)
[2018-11-29] MEDS: LEVOTHYROXINE SODIUM 100 MCG TABLET GT SCH (06:39)
[2018-11-29] MEDS: FLUCONAZOLE 100 MG TABLET GT SCH (08:49)
[2018-11-29] MEDS: MULTIVITAMINS,THERAPEUTIC TABLET GT SCH (08:49)
[2018-11-29] MEDS: NEOMY/BACITRAC/POLYMI OINT 28.35 GM TUBE TOP SCH (08:49)
[2018-11-29 11:50] VITALS: BP 118/67
[2018-11-29] MEDS ORDERED: FLUC100T GT (14:05)
[2018-11-29] MEDS ORDERED: ACID1TAB4 GT (14:05)
[2018-11-29] MEDS ORDERED: LEVO100T10 GT (14:05)
[2018-11-29] MEDS ORDERED: NEOM28.3 TOP (14:05)
[2018-11-29 15:51] VITALS: BP 112/57
[2018-11-29] MEDS: RIVAROXABAN 15 MG TABLET PO SCH (18:14)
== END 2018-11-29 20:20 | DRG 720 ==
LOC: ER 22:37 → TELE3 11-25 02:51 → MEDSURG3 11-25 11:27
PROVIDERS: ADMIT Nurse Practitioner Acute Care
DX: A41.89 Other specified sepsis (principal); G92 Toxic encephalopathy; J96.10 Chronic respiratory failure, unspecified whether with hypoxia or hypercapnia; E11.65 Type 2 diabetes mellitus with hyperglycemia; R53.2 Functional quadriplegia; R13.10 Dysphagia, unspecified; B37.49 Other urogenital candidiasis; Z93.1 Gastrostomy status; F03.90 Unspecified dementia, unspecified severity, without behavioral disturbance, psychotic disturbance, mood disturbance, and anxiety; E86.0 Dehydration; R65.20 Severe sepsis without septic shock; Z98.2 Presence of cerebrospinal fluid drainage device; E03.9 Hypothyroidism, unspecified; K59.09 Other constipation; M24.50 Contracture, unspecified joint; G31.9 Degenerative disease of nervous system, unspecified; Z74.01 Bed confinement status; Z79.01 Long term (current) use of anticoagulants; Z86.711 Personal history of pulmonary embolism; Z87.01 Personal history of pneumonia (recurrent); I10 Essential (primary) hypertension; Z79.890 Hormone replacement therapy
CPT/HCPCS: 36415; 70030-TC; 70450; 71045; 74018; 83605; 83735; 84100; 84443; 85025; 85730; 87040; 87086; 87400; 93005; A4663; C1758; G0378; J1956; J7030

== ENCOUNTER 2019-03-08 14:16 | Inpatient (IN) | payer OTHER ==
[~2019-03-08] VITALS: Ht 152.4 cm; Wt 56.7 kg
[~2019-03-08 14:16] MED LIST changes: +ACID1TAB4 GT; +FLUC100T GT; +LEVO100T10 GT; -LEVO88TA5 GT; +MAGN400O6 GT; -MAGN400O6 PO; +MULT1TAB73 GT; -Multivitamins GT; +NEOM28.3 TOP; -NUT.237L30 GT; -OMEP20CA11 GT; +OMEP20CA15 GT; -RIVA20TA GT; +RIVAROXABAN GT
[2019-03-08] MEDS ORDERED: IV NORMAL SALINE 1000 ML BAG IV ONE (14:30)
[2019-03-08] MEDS ORDERED: PIPERACILLIN SODIUM/TAZOBACTAM 3.375 G in IV DEXTROSE 5% 50 ML IV ONE (14:30)
[2019-03-08] MEDS ORDERED: VANCOMYCIN 1G/D5W 200 ML PIGGYBACK IV ONE (14:30)
[2019-03-08] MEDS ORDERED: PIPERACILLIN/TAZOBACTAM/D5W 50 ML IV ONE (14:38)
[2019-03-08] MEDS ORDERED: VANCOMYCIN IV 200 ML ONE (14:39)
[2019-03-08 14:50] LABS: BASOPHILS % (AUTO) 0.6 % (0.0-2.0); EOSINOPHILS # (AUTO) 0.1 K/uL (0.0-0.7); EOSINOPHILS % (AUTO) 1.3 % (0.0-7.0); HEMATOCRIT 40.5 % (31.2-41.9); HEMOGLOBIN 13.3 g/dL (10.9-14.3); LYMPHOCYTES # (AUTO) 1.3 K/uL (20.0-40.0); LYMPHOCYTES % (AUTO) 19.7 % (20.5-51.5); MEAN CORPUSCULAR HEMOGLOBIN 32.9 uug (24.7-32.8); MEAN CORPUSCULAR HGB CONC 33 g/dL (32.3-35.6); MEAN CORPUSCULAR VOLUME 100.4 fL (75.5-95.3); MONOCYTES # (AUTO) 0.3 K/uL (2.0-10.0); MONOCYTES % (AUTO) 5.1 % (0.0-11.0); NEUTROPHILS # (AUTO) 4.8 K/uL (1.8-8.9); NEUTROPHILS % (AUTO) 73.3 % (38.5-71.5); PLATELET COUNT (AUTO) 183 K/uL (179-408); RED BLOOD CELL COUNT(AUTO) 4.03 MIL/uL (3.63-4.92); WHITE BLOOD COUNT (AUTO) 6.6 K/uL (3.8-11.8)
[2019-03-08] MEDS ORDERED: MULT9LIQ6 GT (15:07)
[2019-03-08] MEDS ORDERED: ACET-2070 GT ×2 (15:07)
[2019-03-08] MEDS ORDERED: LEVO100T10 GT (15:07)
[2019-03-08] MEDS ORDERED: L. A1CAP11 GT (15:07)
[2019-03-08] MEDS ORDERED: HYDR-4384 GT (15:07)
[2019-03-08] MEDS ORDERED: DOXY100T2 GT (15:07)
[2019-03-08] MEDS ORDERED: IPRA3AMP23 IH (15:07)
[2019-03-08 15:14] LABS: CREATININE 0.6 mg/dL (0.6-1.3); POTASSIUM 4.1 mmol/L (3.5-5.1)
[2019-03-08 15:20] LABS: BILIRUBIN,DIRECT 0.1 mg/dL (0.0-0.2); BILIRUBIN,TOTAL 0.5 mg/dL (0.2-1.0); TOTAL PROTEIN, SERUM 7.2 g/dL (6.4-8.2)
[2019-03-08] MEDS ORDERED: FLUCONAZOLE 400 MG /NS 200 ML PIGGYBACK IV ONE (15:30)
[2019-03-08] MEDS ORDERED: FLUCONAZOLE 200 MG/100 ML PIGGYBACK ONE (15:32)
[2019-03-08 15:54] LABS: *BILIRUBIN,URIN NEGATIVE (NEGATIVE); *BLOOD, URINE NEGATIVE (NEGATIVE); *CLARITY,URINE SLIGHTLY CLOUDY (CLEAR); *COLOR,URINE YELLOW (YELLOW); *KETONES,URINE NEGATIVE (NEGATIVE); LEUKOCYTE ESTERASE ,URINE NEGATIVE (NEGATIVE); NITRITE, URINE NEGATIVE (NEGATIVE); PH,URINE 7.5 (5.0-8.0); UGLUCOSE NEGATIVE (NEGATIVE)
[2019-03-08 16:14] LABS: RBC,URINE 0-3 /HPF (0-3)
[2019-03-08 16:15] LABS: BACTERIA,URINE NONE SEEN /HPF (NONE SEEN); SQUAMOUS EPITHELIAL CELL,UR MANY /HPF (NONE SEEN); URINE AMORPHOUS PHOSPHATES MANY /HPF; WBC,URINE 0-3 /HPF (0-3)
--- NOTE | 2019-03-08 19:10 | NUR ---
Patient laying on gurny with no distress noted. Has 2liter N/C satting at 97%. Bilateral upper extremity contracted. IV Hep Lock on left foot 20g patent. G tube dressing clean and intact.
--- NOTE | 2019-03-08 20:19 | NUR ---
Transfered to 3rd floor Tele via [facility].
[2019-03-08] MEDS ORDERED: MORPHINE SULFATE 2 MG/1 ML DISP.SYRIN IV PRN (20:30)
[2019-03-08] MEDS ORDERED: MAGNESIUM HYDROXIDE 30 ML LIQUID UDC GT PRN (20:30)
[2019-03-08] MEDS ORDERED: IPRATROPIUM BROMIDE 0.5 MG/2.5 ML NEBU NEB PRN (20:30)
[2019-03-08] MEDS ORDERED: Medication Not On Formulary EA (Acetaminophen 650 MG) GT PRN (20:30)
[2019-03-08] MEDS ORDERED: HYDROCODONE/APAP 5-325MG TABLET GT PRN (20:30)
[2019-03-08] MEDS ORDERED: ALBUTEROL SULFATE 2.5 MG/3 ML NEBU NEB PRN (20:30)
[2019-03-08] MEDS ORDERED: ACETAMINOPHEN 650 MG/20.3 ML LIQUID UDC GT PRN (20:45)
[2019-03-08 20:57] VITALS: BP 113/66
[2019-03-08] MEDS ORDERED: PIPERACILLIN/TAZOBACTAM/D5W 100 ML IV ONE (21:30)
[2019-03-08] MEDS: PIPERACILLIN SODIUM/TAZOBACTAM 3.375 G in IV DEXTROSE 5% 50 ML IV SCH (21:37)
[2019-03-08] MEDS: IV NS 1000 ML 1,000 ML IV PRN (21:38)
[2019-03-08] MEDS: Z GUARD REMEDY PASTE 57 GM TUBE TOP SCH (21:38)
[2019-03-09 01:05] VITALS: BP 113/60
[2019-03-09] MEDS: PIPERACILLIN SODIUM/TAZOBACTAM 3.375 G in IV DEXTROSE 5% 50 ML IV SCH ×3 (05:42→21:04)
[2019-03-09] MEDS: LEVOTHYROXINE SODIUM 100 MCG TABLET GT SCH (05:56)
--- NOTE | 2019-03-09 06:45 | NUR ---
Admitted to room 303; seen by Dr Gtz with admitting orders; started GTF and IVF; admission procedures done; repositioned q2h; needs attended; coontinue plan of care.
[2019-03-09 06:53] LABS: BASOPHILS % (AUTO) 0.5 % (0.0-2.0); EOSINOPHILS # (AUTO) 0.2 K/uL (0.0-0.7); EOSINOPHILS % (AUTO) 3.3 % (0.0-7.0); HEMATOCRIT 35.1 % (31.2-41.9); HEMOGLOBIN 11.7 g/dL (10.9-14.3); LYMPHOCYTES # (AUTO) 1.4 K/uL (20.0-40.0); LYMPHOCYTES % (AUTO) 20.1 % (20.5-51.5); MEAN CORPUSCULAR HGB CONC 33 g/dL (32.3-35.6); MEAN CORPUSCULAR VOLUME 99.3 fL (75.5-95.3); MONOCYTES # (AUTO) 0.3 K/uL (2.0-10.0); MONOCYTES % (AUTO) 4.9 % (0.0-11.0); NEUTROPHILS % (AUTO) 71.2 % (38.5-71.5); PLATELET COUNT (AUTO) 167 K/uL (179-408); RED BLOOD CELL COUNT(AUTO) 3.54 MIL/uL (3.63-4.92); WHITE BLOOD COUNT (AUTO) 7.1 K/uL (3.8-11.8)
[2019-03-09 07:09] LABS: ALANINE AMINOTRANSFERASE 25 U/L (14-59); ALKALINE PHOSPHATASE 50 U/L (50-136); ASPARTATE AMINOTRANSFERASE 16 U/L (15-37); BILIRUBIN,TOTAL 0.7 mg/dL (0.2-1.0); CARBON DIOXIDE 25 mmol/L (21-32); CHLORIDE 115 mmol/L (98-107); CREATININE 0.5 mg/dL (0.6-1.3); GLUCOSE 127 mg/dL (74-106); MAGNESIUM 2.4 mg/dL (1.8-2.4); PHOSPHOROUS 3.4 mg/dL (2.5-4.9); TOTAL PROTEIN, SERUM 5.9 g/dL (6.4-8.2); UREA NITROGEN, BLOOD 26 mg/dL (7-18)
--- NOTE | 2019-03-09 07:10 | NUR ---
Received patient sleeping in bed. No acute distress noted. bed in lowest position, side rails up. will continue to monitor.
[2019-03-09 07:14] LABS: THYROID STIMULATING HORMONE 4.047 mIU/mL (0.358-3.740)
[2019-03-09] MEDS: Z GUARD REMEDY PASTE 57 GM TUBE TOP SCH ×2 (08:45→21:05)
[2019-03-09] MEDS: ACIDOPHILUS/BULGARICUS CHEW TAB GT SCH ×2 (08:45→17:21)
[2019-03-09] MEDS: PANTOPRAZOLE ORAL SUSPENSION 40 MG SUSPDR.PKT GT SCH (08:45)
[2019-03-09] MEDS: MULTIVIT, IRON, MIN NO. 8, FA TABLET GT SCH (08:45)
[2019-03-09] MEDS ORDERED: [UNRECOGNIZED DRUG - OTHER] GT SCH (09:00)
[2019-03-09] MEDS ORDERED: Medication Not On Formulary EA (Multivit &Minerals/Ferrous Fum (Multivitamin Liquid) 5 M GT SCH (09:00)
[2019-03-09] MEDS ORDERED: Medication Not On Formulary EA ([Rivaroxaban] 15 MG) GT SCH (09:00)
[2019-03-09] MEDS: GLUCERNA 1.2 1000ML LIQUID GT PRN (10:00)
--- NOTE | 2019-03-09 10:02 | NUR ---
Clinical Pharmacy Note: Vancomycin Dosing per Pharmacy Subjective: Vancomycin IV to start on this 73 yo female patient for "documented infection" (per ER MD note- fever). Objective: BUN 26/Scr 0.5 WBC 7.1 Temperature 97.6 ht 152 cm wt 56.7 kg Assessment/Plan: Patient received vanco 1gm IVPB x1 on 03/08 at 1530 in ED. Will start vancomycin 750mg IVPB Q18hr for a predicted vancomycin steady state trough level of 16 mcg/ml. 1st dose today at 1000. Will draw a vancomycin trough level prior to the 4th dose of vancomycin (not ordered yet). Will monitor renal function and adjust vancomycin dose, if needed, should renal function change significantly. Will follow daily
[2019-03-09] MEDS: VANCOMYCIN IV 750 MG in IV DEXTROSE 5% 250 ML IV SCH (10:58)
[2019-03-09] MEDS: IV NS 1000 ML 1,000 ML IV PRN (10:59)
[2019-03-09 11:42] VITALS: BP 146/75
[2019-03-09] MEDS ORDERED: INSULIN REGULAR, HUMAN 300 UNIT/3 ML VIAL SQ PRN (11:45)
[2019-03-09] MEDS ORDERED: DEXTROSE 50% 50 ML DISP.SYRIN IV PRN ×2 (11:45→16:15)
[2019-03-09 16:02] VITALS: BP 116/60
[2019-03-09] MEDS ORDERED: BLOOD SUGAR DIAGNOSTIC 1 EACH STRIP VI SCH ×2 (16:30→18:00)
[2019-03-09] MEDS: RIVAROXABAN 15 MG TABLET GT SCH (17:22)
[2019-03-09] MEDS: BLOOD SUGAR DIAGNOSTIC 1 EACH STRIP VI SCH (18:06)
[2019-03-09] MEDS: INSULIN REGULAR, HUMAN 300 UNIT/3 ML VIAL SQ PRN (18:07)
--- NOTE | 2019-03-09 18:15 | NUR ---
PATIENT RESTED INTERMITTENTLY THROUGHOUT DAY. NO ACUTE DISTRESS NOTED . PATIENT STARTED ON TUBE FEEDING, PATIENT TOLERATING FEEDING WITH NO RESIDUAL. IV ATIBIOTICS ADMINISTERED. FLACC PERFORMED PATIENT SHOWING NO SIGNS OF PAIN AND DISCOMFORT. PATIENT REPOSITIONED Q2 HOURS. SAFETY MEASURES PROVIDED. PATIENT PLACED ON AIR MATTRESS. WILL ENDORSE TO ONCOMING NURSE.
[2019-03-09 20:21] VITALS: BP 135/75
[2019-03-10] MEDS: BLOOD SUGAR DIAGNOSTIC 1 EACH STRIP VI SCH ×5 (00:01→23:36)
[2019-03-10] MEDS: INSULIN REGULAR, HUMAN 300 UNIT/3 ML VIAL SQ PRN ×5 (00:01→23:36)
[2019-03-10 00:40] VITALS: BP 121/68
[2019-03-10] MEDS: VANCOMYCIN IV 750 MG in IV DEXTROSE 5% 250 ML IV SCH (03:16)
[2019-03-10] MEDS: IV NS 1000 ML 1,000 ML IV PRN (03:38)
[2019-03-10 05:12] VITALS: BP 139/86
[2019-03-10] MEDS: LEVOTHYROXINE SODIUM 100 MCG TABLET GT SCH (05:20)
[2019-03-10] MEDS: PIPERACILLIN SODIUM/TAZOBACTAM 3.375 G in IV DEXTROSE 5% 50 ML IV SCH ×3 (05:20→21:02)
--- NOTE | 2019-03-10 06:41 | NUR ---
Pt rested well in between care; no acute distress; needs attended; made comfortable.safety maintained.
[2019-03-10 08:00] VITALS: BP 141/75
[2019-03-10 08:16] LABS: CREATININE 0.6 mg/dL (0.6-1.3); MAGNESIUM 2.3 mg/dL (1.8-2.4); PHOSPHOROUS 3.6 mg/dL (2.5-4.9); POTASSIUM 3.8 mmol/L (3.5-5.1)
[2019-03-10 08:25] LABS: BASOPHILS % (AUTO) 0.5 % (0.0-2.0); EOSINOPHILS # (AUTO) 0.2 K/uL (0.0-0.7); EOSINOPHILS % (AUTO) 2.7 % (0.0-7.0); HEMATOCRIT 36.6 % (31.2-41.9); HEMOGLOBIN 12.4 g/dL (10.9-14.3); LYMPHOCYTES % (AUTO) 13.7 % (20.5-51.5); MEAN CORPUSCULAR HEMOGLOBIN 33.5 uug (24.7-32.8); MEAN CORPUSCULAR HGB CONC 34 g/dL (32.3-35.6); MEAN CORPUSCULAR VOLUME 99.1 fL (75.5-95.3); MONOCYTES # (AUTO) 0.4 K/uL (2.0-10.0); MONOCYTES % (AUTO) 5.6 % (0.0-11.0); NEUTROPHILS # (AUTO) 5.9 K/uL (1.8-8.9); NEUTROPHILS % (AUTO) 77.5 % (38.5-71.5); PLATELET COUNT (AUTO) 168 K/uL (179-408); RED BLOOD CELL COUNT(AUTO) 3.69 MIL/uL (3.63-4.92); WHITE BLOOD COUNT (AUTO) 7.6 K/uL (3.8-11.8)
[2019-03-10] MEDS: PANTOPRAZOLE ORAL SUSPENSION 40 MG SUSPDR.PKT GT SCH (09:00)
[2019-03-10] MEDS: MULTIVIT, IRON, MIN NO. 8, FA TABLET GT SCH (09:00)
[2019-03-10] MEDS: Z GUARD REMEDY PASTE 57 GM TUBE TOP SCH ×2 (09:00→20:04)
[2019-03-10] MEDS: ACIDOPHILUS/BULGARICUS CHEW TAB GT SCH ×2 (09:00→17:10)
[2019-03-10 11:03] VITALS: BP 149/63
[2019-03-10] MEDS: GLUCERNA 1.2 1000ML LIQUID GT PRN (11:23)
--- NOTE | 2019-03-10 12:32 | NUR ---
WOUND CARE CONSULT: PT PRESENTS WITH SCARRING TO SACRUM, EARS AND INTACT DEEP TISSUE INJURY TO RT 5TH TOE, PRESENT ON ADMISSION. PT HAS SEVERELY CONTRACTED UPPER AND LOWER EXTREMITIES, MAKING OFFLOADING DIFFICULT. RECOMMENDATIONS MADE FOR SKIN PROTECTION. DISCUSSED WITH NURSING STAFF. WILL SEE PRN. PAIGE IN AGREEMENT WITH PLAN OF CARE. PT ON FIRST STEP [facility]. Addendum: 03/10/19 at 1235 by SHAYAN RODRÍGUEZ RN Amended: Links added.
--- NOTE | 2019-03-10 14:33 | NUR ---
Clinical Pharmacy Note: Vancomycin Dosing per Pharmacy Subjective: Vancomycin IV to continue on this 73 yo female patient for "documented infection" (per ER MD note- fever). Objective: BUN 17/Scr 0.6 WBC 7.6 Temperature 98.2 ht 152 cm wt 56.7 kg Assessment/Plan: Will continue vancomycin 750mg IVPB Q18hr for a predicted vancomycin steady state trough level of 16 mcg/ml. Third dose today at 2200. Will draw a vancomycin trough level prior to the 4th dose of vancomycin (not ordered yet). Will monitor renal function and adjust vancomycin dose, if needed, should renal function change significantly. Will follow daily
[2019-03-10 15:17] VITALS: BP 144/79
[2019-03-10] MEDS: RIVAROXABAN 15 MG TABLET GT SCH (17:11)
--- NOTE | 2019-03-10 19:20 | NUR ---
Received patient lying in bed. Awake, but non-verbal. Able to make eye contact when spoken to. In no apparent distress. On O2 at 2LPM via NC in place. O2 sat at 98%. VS WNL. NSR on tele at 95/min. Midline on left upper arm intact and patent. GT feeding ongoing. Lees catheter intact and draining via gravity. Safety measure initiated and call candelaria within reached.
[2019-03-10 20:00] VITALS: BP 136/69
--- NOTE | 2019-03-10 20:05 | NUR ---
SHANTA Waller into visit and discontinued Vancomycin order.
[2019-03-11] VITALS: BP 144/69
[2019-03-11] MEDS: PIPERACILLIN SODIUM/TAZOBACTAM 3.375 G in IV DEXTROSE 5% 50 ML IV SCH ×2 (05:01→13:09)
[2019-03-11] MEDS: BLOOD SUGAR DIAGNOSTIC 1 EACH STRIP VI SCH (05:58)
--- NOTE | 2019-03-11 06:11 | NUR ---
Flat affect, non-verbal. Appears comfortable. No signs or symptoms of pain or SOB. In no apparent distress. On O2 at 2LPM via NC in place. O2 sat at 98%. VS WNL. NSR on tele at 69/min. Midline on left upper arm intact and patent.No adverse reaction noted from IV ABX. GT feeding/flushing well tolerated. Lees catheter intact and draining via gravity. Safety measure maintained and call candelaria within reached.
[2019-03-11] MEDS: LEVOTHYROXINE SODIUM 100 MCG TABLET GT SCH (06:32)
[2019-03-11 08:00] VITALS: BP 124/67
[2019-03-11] MEDS: Z GUARD REMEDY PASTE 57 GM TUBE TOP SCH ×2 (09:00→21:05)
[2019-03-11] MEDS: MULTIVIT, IRON, MIN NO. 8, FA TABLET GT SCH (09:00)
[2019-03-11] MEDS: PANTOPRAZOLE ORAL SUSPENSION 40 MG SUSPDR.PKT GT SCH (09:00)
[2019-03-11] MEDS: ACIDOPHILUS/BULGARICUS CHEW TAB GT SCH ×2 (09:00→18:21)
[2019-03-11 11:06] VITALS: BP 146/75
[2019-03-11] MEDS: GLUCERNA 1.2 1000ML LIQUID GT PRN (15:04)
[2019-03-11 15:49] VITALS: BP 139/71
[2019-03-11] MEDS: RIVAROXABAN 15 MG TABLET GT SCH (18:22)
--- NOTE | 2019-03-11 19:30 | NUR ---
RECEIVED PT AWAKE ON BED. PT NONVERBAL. PT IN NO ACUTE DISTRESS. PT ON AIR MATTRESS. SAFETY AND COMFORT PROVIDED. WILL CONTINUE TO MONITOR.
[2019-03-11 20:00] VITALS: BP 152/82
[2019-03-12] VITALS: BP 113/52
[2019-03-12 04:05] VITALS: BP 150/80
--- NOTE | 2019-03-12 05:43 | NUR ---
PT SLEPT INTERMITTENTLY. PT IN NO ACUTE DISTRESS. PRESCRIBED MEDICATION GIVEN AND PT TOLERATED IT WELL. PT TURNED AND REPOSITIONED. SAFETY AND COMFORT PROVIDED. ALL NEEDS ARE MET. WILL ENDORSE TO INCOMING NURSE FOR CONTINUITY OF CARE.
[2019-03-12] MEDS: LEVOTHYROXINE SODIUM 100 MCG TABLET GT SCH (06:38)
[2019-03-12 07:08] LABS: BASOPHILS % (AUTO) 0.8 % (0.0-2.0); EOSINOPHILS # (AUTO) 0.2 K/uL (0.0-0.7); HEMATOCRIT 35.4 % (31.2-41.9); HEMOGLOBIN 11.9 g/dL (10.9-14.3); LYMPHOCYTES # (AUTO) 1.3 K/uL (20.0-40.0); LYMPHOCYTES % (AUTO) 23.1 % (20.5-51.5); MEAN CORPUSCULAR HEMOGLOBIN 32.7 uug (24.7-32.8); MEAN CORPUSCULAR HGB CONC 34 g/dL (32.3-35.6); MONOCYTES # (AUTO) 0.4 K/uL (2.0-10.0); MONOCYTES % (AUTO) 6.5 % (0.0-11.0); NEUTROPHILS # (AUTO) 3.6 K/uL (1.8-8.9); NEUTROPHILS % (AUTO) 66.6 % (38.5-71.5); PLATELET COUNT (AUTO) 203 K/uL (179-408); RED BLOOD CELL COUNT(AUTO) 3.65 MIL/uL (3.63-4.92); WHITE BLOOD COUNT (AUTO) 5.5 K/uL (3.8-11.8)
[2019-03-12 07:21] LABS: CREATININE 0.7 mg/dL (0.6-1.3); MAGNESIUM 2.3 mg/dL (1.8-2.4); PHOSPHOROUS 3.7 mg/dL (2.5-4.9); POTASSIUM 3.9 mmol/L (3.5-5.1)
[2019-03-12] MEDS ORDERED: PANTOPRAZOLE ORAL SUSPENSION 40 MG SUSPDR.PKT GT SCH (07:57)
[2019-03-12] MEDS ORDERED: GLIMEPIRIDE 2 MG TABLET GT SCH (08:00)
--- NOTE | 2019-03-12 08:00 | NUR ---
Received pt. resting in bed alert to self. Pt. has Flat affect, non-verbal. Pt. appears comfortable in no distress. No signs or symptoms of pain or SOB. On O2 at 2L via NC in place. Midline on left upper arm intact and patent. GT feeding/flushing well tolerated. Lees catheter intact and draining via gravity. Safety measure maintained and call candelaria within reached.
[2019-03-12] MEDS: ACIDOPHILUS/BULGARICUS CHEW TAB GT SCH ×2 (09:00→18:11)
[2019-03-12] MEDS: MULTIVIT, IRON, MIN NO. 8, FA TABLET GT SCH (09:01)
[2019-03-12] MEDS: Z GUARD REMEDY PASTE 57 GM TUBE TOP SCH (09:01)
[2019-03-12 12:22] VITALS: BP 142/74
[2019-03-12 15:25] VITALS: BP 146/75
[2019-03-12] MEDS: RIVAROXABAN 15 MG TABLET GT SCH (18:19)
--- NOTE | 2019-03-12 18:52 | NUR ---
Pt. to be discharged back to [facility]. Report given to MAGED Avina. Midline removed. All discharge paperwork signed with another nurse. No belongings to bring back with pt. Pt. in stable condition. No pictures taken as photos were taken at 5 AM 03/12 no need for duplicates.
--- NOTE | 2019-03-12 19:00 | NUR ---
PT AWAITING FOR [facility] TO PICK HER UP. PT IN NO ACUTE DISTRESS. IV TAKEN OUT. WILL CONTINUE TO MONITOR.
--- NOTE | 2019-03-12 19:25 | NUR ---
PT TAKEN BY [facility]. DISCHARGE PAPERS GIVEN TO JOJO. PT STABLE AND IN NO ACUTE DISTRESS. ID BAND TAKEN OFF. PT HAS HER ZIEGLER CATHETER IN PLACE. WHEELED OUT VIA GURNEY. PT ON 2L NASAL CANNULA.
== END 2019-03-12 19:30 | DRG 720 ==
LOC: ER 14:16 → TELE3 20:05 → MEDSURG3 03-11 07:55
PROVIDERS: ADMIT Internal Medicine; ATTEND Internal Medicine
PROC: 05HC33Z Insertion of Infusion Device into Left Basilic Vein, Percutaneous Approach (ICD-10-PCS; principal; 2019-03-08)
DX: A41.9 Sepsis, unspecified organism (principal); J69.0 Pneumonitis due to inhalation of food and vomit; E43 Unspecified severe protein-calorie malnutrition; G92 Toxic encephalopathy; R53.2 Functional quadriplegia; E87.0 Hyperosmolality and hypernatremia; R13.10 Dysphagia, unspecified; G91.2 (Idiopathic) normal pressure hydrocephalus; D75.89 Other specified diseases of blood and blood-forming organs; Z98.2 Presence of cerebrospinal fluid drainage device; E03.9 Hypothyroidism, unspecified; Z93.1 Gastrostomy status; Z87.440 Personal history of urinary (tract) infections; R09.02 Hypoxemia; L25.9 Unspecified contact dermatitis, unspecified cause; E78.5 Hyperlipidemia, unspecified; K59.09 Other constipation; B36.9 Superficial mycosis, unspecified; M24.50 Contracture, unspecified joint; Z74.01 Bed confinement status; F02.80 Dementia in other diseases classified elsewhere, unspecified severity, without behavioral disturbance, psychotic disturbance, mood disturbance, and anxiety; E86.0 Dehydration; E11.9 Type 2 diabetes mellitus without complications; D68.59 Other primary thrombophilia; R00.0 Tachycardia, unspecified; I11.9 Hypertensive heart disease without heart failure; I34.0 Nonrheumatic mitral (valve) insufficiency
CPT/HCPCS: 36415; 70030-TC; 71045; 83605; 83735; 84100; 84443; 85025; 85730; 87040; 87086; 87400; 93005; 93307; A4663; G0378; J1450; J1815; J2543; J3370; J7030; J7040; J7060

== ENCOUNTER 2019-04-18 21:01 | Inpatient (IN) | payer OTHER ==
[~2019-04-18] VITALS: Ht 152.4 cm; Wt 55.8 kg
--- NOTE | 2019-04-18 21:10 | NUR ---
PT BIB AMBULANCE FROM [facility] FOR C/O FEVER. PATIENT IS NON-VERBAL, CONTRACTED AND GT IN PLACE.
[2019-04-18] MEDS ORDERED: IV NORMAL SALINE 1000 ML BAG IV ONE (21:30)
--- NOTE | 2019-04-18 21:40 | NUR ---
SWABBED FOR RAPID FLU , SPECIMEN SENT TO LAB.
[2019-04-18 22:10] LABS: BASOPHILS # (AUTO) 0.1 K/uL (0.0-8.0); EOSINOPHILS % (AUTO) 0.4 % (0.0-7.0); HEMATOCRIT 37.5 % (31.2-41.9); HEMOGLOBIN 12.5 g/dL (10.9-14.3); LYMPHOCYTES # (AUTO) 1.4 K/uL (20.0-40.0); LYMPHOCYTES % (AUTO) 21.1 % (20.5-51.5); MEAN CORPUSCULAR HEMOGLOBIN 33.2 uug (24.7-32.8); MEAN CORPUSCULAR HGB CONC 33 g/dL (32.3-35.6); MEAN CORPUSCULAR VOLUME 99.9 fL (75.5-95.3); MONOCYTES # (AUTO) 0.4 K/uL (2.0-10.0); MONOCYTES % (AUTO) 6.3 % (0.0-11.0); NEUTROPHILS # (AUTO) 4.7 K/uL (1.8-8.9); NEUTROPHILS % (AUTO) 71.2 % (38.5-71.5); PLATELET COUNT (AUTO) 203 K/uL (179-408); RED BLOOD CELL COUNT(AUTO) 3.76 MIL/uL (3.63-4.92); WHITE BLOOD COUNT (AUTO) 6.6 K/uL (3.8-11.8)
[2019-04-18 22:14] LABS: CARBON DIOXIDE 28 mmol/L (21-32); CHLORIDE 112 mmol/L (98-107); CREATININE 0.6 mg/dL (0.6-1.3); GLUCOSE 150 mg/dL (74-106); POTASSIUM 4.4 mmol/L (3.5-5.1); UREA NITROGEN, BLOOD 29 mg/dL (7-18)
[2019-04-18 22:20] LABS: ALANINE AMINOTRANSFERASE 23 U/L (14-59); ALKALINE PHOSPHATASE 70 U/L (50-136); ASPARTATE AMINOTRANSFERASE 16 U/L (15-37); BILIRUBIN,TOTAL 0.9 mg/dL (0.2-1.0); LIPASE 133 U/L (73-393); TOTAL PROTEIN, SERUM 7.6 g/dL (6.4-8.2)
[2019-04-18 22:22] LABS: *BILIRUBIN,URIN NEGATIVE (NEGATIVE); *BLOOD, URINE NEGATIVE (NEGATIVE); *CLARITY,URINE SLIGHTLY CLOUDY (CLEAR); *COLOR,URINE YELLOW (YELLOW); *KETONES,URINE NEGATIVE (NEGATIVE); LEUKOCYTE ESTERASE ,URINE NEGATIVE (NEGATIVE); NITRITE, URINE NEGATIVE (NEGATIVE); UGLUCOSE NEGATIVE (NEGATIVE)
[2019-04-18 22:26] LABS: RBC,URINE 0-3 /HPF (0-3)
[2019-04-18 22:27] LABS: BACTERIA,URINE FEW /HPF (NONE SEEN); MUCUS,URINE MANY /LPF (0-FEW); SQUAMOUS EPITHELIAL CELL,UR MODERATE /HPF (NONE SEEN); URINE AMORPHOUS PHOSPHATES MODERATE /HPF; YEAST,URINE MODERATE /HPF (NONE SEEN)
[2019-04-18 22:32] LABS: BILIRUBIN,DIRECT < 0.1 mg/dL (0.0-0.2)
[2019-04-18] MEDS ORDERED: CEFTRIAXONE 1 G in IV DEXTROSE 5% 50 ML IV ONE (23:00)
[2019-04-18] MEDS ORDERED: CEFTRIAXONE /D5W 50ML IVPB **ER PYXIS IV ONE (23:01)
--- NOTE | 2019-04-18 23:25 | NUR ---
Pt. admitted to TELE , under care of [place], [facility] K[facility] STITCHER Belongs List completed.
[2019-04-18] MEDS ORDERED: ONDANSETRON 4 MG/2 ML VIAL IV PRN (23:30)
[2019-04-18] MEDS ORDERED: MAGNESIUM HYDROXIDE 30 ML LIQUID UDC PO PRN (23:30)
[2019-04-18] MEDS ORDERED: Z GUARD REMEDY PASTE 57 GM TUBE TOP PRN (23:30)
[2019-04-18] MEDS ORDERED: ACETAMINOPHEN 325 MG TABLET PO PRN (23:30)
[2019-04-19] VITALS: BP 132/76
--- NOTE | 2019-04-19 00:05 | NUR ---
ADMITTED A 73 YEARS OLD FEMALE WITH DIAGNOSIS OF SEPSIS/UTI. PATIENT NON-VERBAL, FLAT AFFECT. NO SIGNS OR SYMPTOMS OF PAIN OR SOB NOTED. ON O2 AT 2LPM VIA NC IN PLACE. O2 SAT AT 96%. IV SITE ON RIGHT HAND INTACT AND PATENT. NSR ON TELE AT 91/MIN. GT INTACT. ZIEGLER CATHETER INTACT AND DRAINING VIA GRAVITY. AFEBRILE AT THIS TIME. VS WNL. ROUTINE ADMISSION CAFE DONE. PLAN OF CARE INITIATED. SAFETY MEASURE INITIATED. CONTINUE TO MONITOR.
[2019-04-19] MEDS: IV NS 1000 ML 1,000 ML IV PRN ×2 (01:16→15:03)
--- NOTE | 2019-04-19 06:13 | NUR ---
PATIENT NON-VERBAL, FLAT AFFECT. NO SIGNS OR SYMPTOMS OF PAIN OR SOB. ON O2 AT 2LPM VIA NC IN PLACE. IV SITE ON RIGHT HAND INTACT AND PATENT. IVF INFUSING. NSR ON TELE AT 82/MIN. GT INTACT AND PATENT. ZIEGLER CATHETER INTACT AND DRAINING VIA GRAVITY. SAFETY MEASURE MAINTAINED.
[2019-04-19 07:19] LABS: BASOPHILS % (AUTO) 0.9 % (0.0-2.0); EOSINOPHILS % (AUTO) 0.7 % (0.0-7.0); HEMATOCRIT 31.3 % (31.2-41.9); HEMOGLOBIN 10.6 g/dL (10.9-14.3); LYMPHOCYTES # (AUTO) 1.6 K/uL (20.0-40.0); LYMPHOCYTES % (AUTO) 32.4 % (20.5-51.5); MEAN CORPUSCULAR HEMOGLOBIN 33.7 uug (24.7-32.8); MEAN CORPUSCULAR HGB CONC 34 g/dL (32.3-35.6); MONOCYTES # (AUTO) 0.3 K/uL (2.0-10.0); MONOCYTES % (AUTO) 6.8 % (0.0-11.0); NEUTROPHILS % (AUTO) 59.2 % (38.5-71.5); PLATELET COUNT (AUTO) 165 K/uL (179-408); RED BLOOD CELL COUNT(AUTO) 3.13 MIL/uL (3.63-4.92); WHITE BLOOD COUNT (AUTO) 5.1 K/uL (3.8-11.8)
[2019-04-19 07:38] LABS: CARBON DIOXIDE 28 mmol/L (21-32); CHLORIDE 112 mmol/L (98-107); CHOLESTEROL 145 mg/dL (<200); CREATININE 0.4 mg/dL (0.6-1.3); GLUCOSE 123 mg/dL (74-106); HDL CHOLESTEROL 34 mg/dL (40-60); MAGNESIUM 2.1 mg/dL (1.8-2.4); PHOSPHOROUS 2.8 mg/dL (2.5-4.9); POTASSIUM 3.7 mmol/L (3.5-5.1); TRIGLYCERIDES 108 MG/DL (30-150); UREA NITROGEN, BLOOD 21 mg/dL (7-18)
--- NOTE | 2019-04-19 08:01 | NUR ---
RECEIVED PT RESTING. PATIENT NON-VERBAL, FLAT AFFECT. NO SIGNS OR SYMPTOMS OF PAIN OR SOB. NO ACUTE DISTRESS NOTED. ON O2 AT 2LPM VIA NC IN PLACE. IV SITE ON RIGHT HAND INTACT AND PATENT. IVF INFUSING. NORMAL SINUS RHYTHM ON TELE. GT INTACT AND PATENT. ZIEGLER CATHETER INTACT AND DRAINING YELLOW AGUIRRE. CALL LIGHT WITHIN REACH. BED LOCKED AND IN LOW POSITION. WILL CONTINUE TO MONITOR FOR SAFATY AND COMFORT.
[2019-04-19] MEDS ORDERED: CULTURELLE CAPSULE PO SCH (09:00)
[2019-04-19] MEDS ORDERED: LEVOTHYROXINE SODIUM 100 MCG TABLET GT SCH (09:00)
[2019-04-19] MEDS ORDERED: MULTIVIT, IRON, MIN NO. 8, FA TABLET PO SCH (09:00)
[2019-04-19] MEDS ORDERED: MAGNESIUM HYDROXIDE 30 ML LIQUID UDC GT PRN (09:27)
[2019-04-19] MEDS ORDERED: ACETAMINOPHEN 650 MG/20.3 ML LIQUID UDC GT PRN (09:30)
[2019-04-19] MEDS ORDERED: ACETAMINOPHEN 650 MG/20.3 ML LIQUID UDC PO PRN (09:30)
[2019-04-19] MEDS: PANTOPRAZOLE ORAL SUSPENSION 40 MG SUSPDR.PKT GT SCH (09:33)
[2019-04-19 11:49] VITALS: BP 119/62
[2019-04-19] MEDS ORDERED: FLUCONAZOLE 200 MG/NS 100ML IV 100 MG in PREMIXED 1 EACH IV SCH (13:00)
--- NOTE | 2019-04-19 13:00 | NUR ---
PT RESTING IN BED. NO ACUTE DISTRESS OR SOB NOTED. MEDS GIVEN VIA G TUBE. PLACEMENT CHECKED. NO RESIDUAL. FLUSHED AND PATENT. G TUBE DRESSING CHANGED. ASKED DR CARMONA REGARDING PT'S FEEDING. PER DR CARMONA TO CONTACT [facility] IN ORDER TO OBTAIN FEDING RECORD TO CONTINUE AT [facility]. TELE NSR. WILL CONTINUE TO MONITOR.
[2019-04-19] MEDS: FLUCONAZOLE 100 MG TABLET GT SCH (13:42)
--- NOTE | 2019-04-19 15:00 | NUR ---
[facility] CONTACTED IN ORDER TO OBTAIN FEEDING INFO. AWAITING FOR FAX. PT RESTING, NO ACUTE DISTRESS OR SOB NOTED. NSR ON TELE. WILL CONTINUE TO MONITOR.
[2019-04-19 16:00] VITALS: BP 125/78
--- NOTE | 2019-04-19 18:00 | NUR ---
PT RESTING ION BED. NO ACUTE DISTRESS OR SOB NOTED. CONTACTED [facility] IN ORDER TO OBTAIN FEEDING INFO. THEY SAID THEY HAD AN EMERGENCY AND COULD NOT FAX INFO AT THE REQUESTED TIME. THEY WILL FAX NOW. PT HAS ZIEGLER FLOWING AGUIRRE YELLOW URINE. WILL GIVE REPORT ACCORDINGLY.
[2019-04-19] MEDS: RIVAROXABAN 15 MG TABLET GT SCH (18:20)
[2019-04-19] MEDS: CULTURELLE CAPSULE GT SCH (20:16)
[2019-04-19 20:33] VITALS: BP 160/76
[2019-04-19 21:06] VITALS: BP 117/60
[2019-04-19] MEDS: CEFTRIAXONE 1 G in IV DEXTROSE 5% 50 ML IV SCH (21:46)
[2019-04-19] MEDS: GLUCERNA 1.2 1000ML LIQUID GT PRN (22:58)
[2019-04-20 00:28] VITALS: BP 106/50
[2019-04-20] MEDS: IV NS 1000 ML 1,000 ML IV PRN (04:19)
[2019-04-20 06:26] VITALS: BP 113/60
[2019-04-20] MEDS: LEVOTHYROXINE SODIUM 100 MCG TABLET GT SCH (06:28)
--- NOTE | 2019-04-20 06:58 | NUR ---
RECEIVED PT RESTING. PATIENT NON-VERBAL, FLAT AFFECT. NO SIGNS OR SYMPTOMS OF PAIN OR SOB. NO ACUTE DISTRESS NOTED. ON O2 AT 2LPM VIA NC IN PLACE. IV SITE ON RIGHT HAND INTACT AND PATENT. GT INTACT AND PATENT. ZIEGLER CATHETER INTACT AND DRAINING YELLOW AGUIRRE. CALL LIGHT WITHIN REACH. BED LOCKED AND IN LOW POSITION. WILL CONTINUE TO MONITOR
[2019-04-20] MEDS: FLUCONAZOLE 100 MG TABLET GT SCH (08:02)
[2019-04-20] MEDS: CULTURELLE CAPSULE GT SCH ×2 (08:02→20:00)
[2019-04-20] MEDS: MULTIVIT, IRON, MIN NO. 8, FA TABLET GT SCH (08:02)
[2019-04-20] MEDS: PANTOPRAZOLE ORAL SUSPENSION 40 MG SUSPDR.PKT GT SCH (08:03)
[2019-04-20 11:50] VITALS: BP 113/55
[2019-04-20 16:15] VITALS: BP 130/60
[2019-04-20] MEDS: RIVAROXABAN 15 MG TABLET GT SCH (17:07)
[2019-04-20] MEDS: GLUCERNA 1.2 1000ML LIQUID GT PRN (17:57)
[2019-04-20 20:11] VITALS: BP 116/63
[2019-04-20] MEDS: CEFTRIAXONE 1 G in IV DEXTROSE 5% 50 ML IV SCH (21:00)
--- NOTE | 2019-04-20 21:14 | NUR ---
in bed resting no c/o pain noted vital sign wnl.call light with in reach
[2019-04-21 05:01] VITALS: BP 125/66
[2019-04-21] MEDS: LEVOTHYROXINE SODIUM 100 MCG TABLET GT SCH (06:02)
--- NOTE | 2019-04-21 07:31 | NUR ---
PATIENT RESTING IN BED ALERT AND AWAKE. PATIENT ON GTUBE. NO ACUTE DISTRESS OR SOB NOTED. WILL CONTINUE TO MONITOR.
[2019-04-21 07:40] LABS: CREATININE 0.6 mg/dL (0.6-1.3); MAGNESIUM 2.2 mg/dL (1.8-2.4); PHOSPHOROUS 3.9 mg/dL (2.5-4.9); POTASSIUM 3.8 mmol/L (3.5-5.1)
[2019-04-21 07:47] LABS: BASOPHILS % (AUTO) 0.9 % (0.0-2.0); EOSINOPHILS # (AUTO) 0.1 K/uL (0.0-0.7); EOSINOPHILS % (AUTO) 2.2 % (0.0-7.0); HEMATOCRIT 32.4 % (31.2-41.9); LYMPHOCYTES # (AUTO) 1.3 K/uL (20.0-40.0); LYMPHOCYTES % (AUTO) 24.1 % (20.5-51.5); MEAN CORPUSCULAR HEMOGLOBIN 33.6 uug (24.7-32.8); MEAN CORPUSCULAR HGB CONC 34 g/dL (32.3-35.6); MEAN CORPUSCULAR VOLUME 98.7 fL (75.5-95.3); MONOCYTES # (AUTO) 0.3 K/uL (2.0-10.0); MONOCYTES % (AUTO) 5.8 % (0.0-11.0); NEUTROPHILS # (AUTO) 3.7 K/uL (1.8-8.9); PLATELET COUNT (AUTO) 175 K/uL (179-408); RED BLOOD CELL COUNT(AUTO) 3.28 MIL/uL (3.63-4.92); WHITE BLOOD COUNT (AUTO) 5.6 K/uL (3.8-11.8)
[2019-04-21] MEDS: MULTIVIT, IRON, MIN NO. 8, FA TABLET GT SCH (09:21)
[2019-04-21] MEDS: CULTURELLE CAPSULE GT SCH ×2 (09:21→20:14)
[2019-04-21] MEDS: PANTOPRAZOLE ORAL SUSPENSION 40 MG SUSPDR.PKT GT SCH (09:21)
[2019-04-21] MEDS: FLUCONAZOLE 100 MG TABLET GT SCH (09:21)
[2019-04-21 11:32] VITALS: BP 125/55
[2019-04-21] MEDS: GLUCERNA 1.2 1000ML LIQUID GT PRN ×2 (13:34→13:58)
--- NOTE | 2019-04-21 14:16 | NUR ---
WOUND CARE CONSULT: PT PRESENTS WITH CONTRACTURES OF UPPER AND LOWER EXTREMITIES AND SACRAL SCARRING, PRESENT ON ADMISSION. RECOMMENDATIONS MADE FOR SKIN PROTECTION. DISCUSSED WITH NURSING STAFF. CURRENT DENISE SCORE IS 12. PT INCONTINENT OF STOOL. WILL SEE PRN. PAIGE IN AGREEMENT WITH PLAN OF CARE. FIRST STEP LOW AIRLOSS MATTRESS ON ORDER. Addendum: 04/21/19 at 1418 by SHAYAN RODRÍGUEZ RN Amended: Links added.
[2019-04-21 15:43] VITALS: BP 121/57
[2019-04-21] MEDS: RIVAROXABAN 15 MG TABLET GT SCH (17:16)
--- NOTE | 2019-04-21 18:24 | NUR ---
PATIENT RESTING IN BED ALERT AND AWAKE BEDREST . PATIENT ON GTUBE FEEDING AND ABLE TO TOLERATE WELL. PATIENT COOPERATIVE. NO ACUTE DISTRESS OR SOB NOTED. WILL CONTINUE TO MONITOR.
--- NOTE | 2019-04-21 19:20 | NUR ---
Received patient lying in bed. Awake but non-verbal. Able to make brief eye contact when spoken to. In no acute distress. No signs or symptoms of pain or SOB. On O2 at 2LPM via NC in place. O2 sat at 96%. GT feeding on going. Lees catheter intact and draining via gravity. IV site on right hand intact and patent. Safety measure initiated. Continue to monitor.
[2019-04-21 20:42] VITALS: BP 117/51
--- NOTE | 2019-04-21 23:17 | NUR ---
hands off report received from Cecy Inman . Pt in no acute distress. Iv intact. Safety and comfort provided. Will continue to monitor.
[2019-04-22] MEDS: LEVOTHYROXINE SODIUM 100 MCG TABLET GT SCH (06:14)
--- NOTE | 2019-04-22 06:30 | NUR ---
PT SLEPT INTERMITTENTLY. PT IN NO ACUTE DISTRESS. PRESCRIBED MEDICATION GIVEN AND PT TOLERATED IT WELL. DRESSING CHANGED. PT HAD ONE BOWEL MOVEMENT. SAFETY AND COMFORT PROVIDED. ALL NEEDS ARE MET. WILL ENDORSE TO INCOMING NURSE FOR CONTINUITY OF CARE.
[2019-04-22 06:32] VITALS: BP 125/59
--- NOTE | 2019-04-22 07:30 | NUR ---
PATIENT CALM AND COMFORTABLE RESTING IN BED WITH NO SIGNS OF DISTRESS; PATIENT WILL CONTINUE TO BE MONITORED.
[2019-04-22] MEDS: FLUCONAZOLE 100 MG TABLET GT SCH (09:02)
[2019-04-22] MEDS: MULTIVIT, IRON, MIN NO. 8, FA TABLET GT SCH (09:02)
[2019-04-22] MEDS: PANTOPRAZOLE ORAL SUSPENSION 40 MG SUSPDR.PKT GT SCH (09:02)
[2019-04-22] MEDS: CULTURELLE CAPSULE GT SCH (09:02)
[2019-04-22 11:55] VITALS: BP 131/72
[2019-04-22 15:31] VITALS: BP 100/52
--- NOTE | 2019-04-22 18:15 | NUR ---
PATIENT DISCHARGED TO [facility] WITH STABLE VITAL SIGNS ; PATIENT AT BASELINE MENTAL STATUS ; PATIENT TRANSPORTED BY AMBULANCE. REPORT GIVEN RN AT FACILITY [facility].
== END 2019-04-22 18:25 | DRG 720 ==
LOC: ER 21:02 → TELE3 23:36 → MEDSURG3 04-20 18:26
PROVIDERS: ADMIT Nurse Practitioner Acute Care; ATTEND Internal Medicine
DX: A41.9 Sepsis, unspecified organism (principal); G92 Toxic encephalopathy; D68.59 Other primary thrombophilia; R53.2 Functional quadriplegia; B48.8 Other specified mycoses; Z93.1 Gastrostomy status; R13.10 Dysphagia, unspecified; B37.49 Other urogenital candidiasis; Z74.09 Other reduced mobility; I70.0 Atherosclerosis of aorta; F03.90 Unspecified dementia, unspecified severity, without behavioral disturbance, psychotic disturbance, mood disturbance, and anxiety; L30.4 Erythema intertrigo; K59.09 Other constipation; Z86.711 Personal history of pulmonary embolism; Z98.2 Presence of cerebrospinal fluid drainage device; E03.9 Hypothyroidism, unspecified; I10 Essential (primary) hypertension; E78.5 Hyperlipidemia, unspecified; E11.9 Type 2 diabetes mellitus without complications
CPT/HCPCS: 36415; 71045; 83605; 83690; 83735; 84100; 85025; 87040; 87086; 87400; 93005; A4663; G0378; J0696; J7030; J7060

== ENCOUNTER 2019-05-11 17:10 | Inpatient (IN) | payer OTHER ==
[~2019-05-11] VITALS: Ht 160 cm; Wt 54.4 kg
[~2019-05-11 17:10] MED LIST changes: +ACET-2070 GT; -ACET650S26 GT; -ACID1TAB4 GT; -FLUC100T GT; +HYDR-4384 GT; +L. A1CAP11 GT; -MULT1TAB73 GT; +MULT9LIQ6 GT; -NEOM28.3 TOP
[2019-05-11] MEDS ORDERED: IV NORMAL SALINE 1000 ML BAG IV ONE (17:15)
[2019-05-11] MEDS ORDERED: levoFLOXacin 750MG/D5W 150 ML IV ONE ×2 (17:15→17:28)
[2019-05-11] MEDS: VANCOMYCIN IV 1,000 MG in IV DEXTROSE 5% 250 ML IV ONE ×2 (17:15→19:15)
[2019-05-11] MEDS ORDERED: ACETAMINOPHEN 650 MG SUPP.RECT RC ONE ×2 (17:15→17:27)
[2019-05-11] MEDS ORDERED: VANCOMYCIN IV 200 ML ONE (17:29)
[2019-05-11] MEDS ORDERED: PIPE3.376 IV (17:39)
[2019-05-11 18:14] LABS: BASOPHILS # (AUTO) 0.1 K/uL (0.0-8.0); BASOPHILS % (AUTO) 0.8 % (0.0-2.0); HEMATOCRIT 36.2 % (31.2-41.9); HEMOGLOBIN 11.9 g/dL (10.9-14.3); LYMPHOCYTES # (AUTO) 1.1 K/uL (20.0-40.0); LYMPHOCYTES % (AUTO) 14.5 % (20.5-51.5); MEAN CORPUSCULAR HGB CONC 33 g/dL (32.3-35.6); MEAN CORPUSCULAR VOLUME 100.3 fL (75.5-95.3); MONOCYTES # (AUTO) 0.5 K/uL (2.0-10.0); NEUTROPHILS # (AUTO) 5.9 K/uL (1.8-8.9); NEUTROPHILS % (AUTO) 77.7 % (38.5-71.5); PLATELET COUNT (AUTO) 183 K/uL (179-408); RED BLOOD CELL COUNT(AUTO) 3.61 MIL/uL (3.63-4.92); WHITE BLOOD COUNT (AUTO) 7.6 K/uL (3.8-11.8)
[2019-05-11 18:23] LABS: ABG BASE EXCESS 1.7 mmol/L; ABG HCO3 25.5 mmol/L; ABG PCO2 37.3 mmHg (35.0-45.0); ABG PH 7.453 (7.350-7.450); ABG SITE LEFT RADIAL; ABG TOTAL HEMOGLOBIN 11.9 G/dL (12.0-16.0); COHb 0.5 % (0.5-1.5); MetHb 0.2 % (0.0-1.5); O2Hb 97.7 % (94.0-97.0)
[2019-05-11 18:25] LABS: *BILIRUBIN,URIN NEGATIVE (NEGATIVE); *COLOR,URINE YELLOW (YELLOW); *KETONES,URINE NEGATIVE (NEGATIVE); LEUKOCYTE ESTERASE ,URINE 1+ (NEGATIVE); NITRITE, URINE NEGATIVE (NEGATIVE); PH,URINE 7.5 (5.0-8.0); UGLUCOSE NEGATIVE (NEGATIVE)
--- NOTE | 2019-05-11 18:27 | NUR ---
Placed a call to [facility] services per Dr Jackson request. Per Angie in LAB our testing comes from [facility], but testing is sent to [facility]. DR Jackson made aware.
[2019-05-11 18:32] LABS: BILIRUBIN,DIRECT 0.2 mg/dL (0.0-0.2); BILIRUBIN,TOTAL 0.8 mg/dL (0.2-1.0); CREATININE 0.8 mg/dL (0.6-1.3); POTASSIUM 3.7 mmol/L (3.5-5.1); TOTAL PROTEIN, SERUM 6.9 g/dL (6.4-8.2)
[2019-05-11 18:50] LABS: *BLOOD, URINE TRACE (NEGATIVE); *CLARITY,URINE HAZY (CLEAR)
[2019-05-11 18:52] LABS: CALCIUM OXALATE CRYSTALS,UR FEW /HPF (NONE SEEN); SQUAMOUS EPITHELIAL CELL,UR FEW /HPF (NONE SEEN); URINE AMORPHOUS PHOSPHATES MODERATE /HPF
--- NOTE | 2019-05-11 18:53 | NUR ---
Patient brought in by ambulance from [facility],pt alert not oriented, non verbal, responce to tactile and verbal stimuli. Pt brought in for fever and is currently on abx for PNA at SNF. pt labored, shallow and tachypnic breathing, pt warm to touch. Pt ST, all pulse palpable. Gtube in place. Pt had dacosta with staw like color in collection chamber. Sacral DTI. Safety measures implemented per protocol, bed in lowest position, side rails up x2, call light within reach.
--- NOTE | 2019-05-11 19:10 | NUR ---
Recieved patient from nurse Arvind, per Arvind, patient is pending admission to Tele unit, and needs an additional 1.1 liter of fluids. Noted poor venous access to bilateral hands.
--- NOTE | 2019-05-11 19:30 | NUR ---
Noted bp of 72/35 and repeat bp of 66/43. Dr. Reeves made aware. BP reassessed on Rt arm noted 113/58
--- NOTE | 2019-05-11 19:59 | NUR ---
Dr. Reeves at bedside inserting central line.
--- NOTE | 2019-05-11 20:25 | NUR ---
Per Dr. Reeves, central line that was placed on the Lt subclavian vein ok to use. Per Dr. Reeves to only give 1 liter of NS and not the second liter that was pending.
[2019-05-11] MEDS ORDERED: MAGNESIUM HYDROXIDE 30 ML LIQUID UDC PO PRN (20:30)
[2019-05-11] MEDS ORDERED: ONDANSETRON 4 MG/2 ML VIAL IV PRN (20:30)
[2019-05-11] MEDS ORDERED: Z GUARD REMEDY PASTE 57 GM TUBE TOP PRN (20:30)
--- NOTE | 2019-05-11 20:31 | NUR ---
SBAR report given to Luzmaria.
--- NOTE | 2019-05-11 20:42 | NUR ---
Patient transported to [facility] via gurney by Chase FRANKS
[2019-05-11 20:45] VITALS: BP 101/56
--- NOTE | 2019-05-11 20:45 | NUR ---
3rd floor made aware that MRSA swabs need to be done.
--- NOTE | 2019-05-11 20:56 | NUR ---
Dr. Reeves obtained consent for central line placement.
--- NOTE | 2019-05-11 20:57 | NUR ---
Dr. Reeves speaking with daughter to inform her about central line placement.
--- NOTE | 2019-05-11 21:00 | NUR ---
received patient awake , non verbal , contracted , gt checked patent and intact , oxygen 3l nc , dacosta catheter intact , central line left internal jugular intact
[2019-05-11] MEDS: RIVAROXABAN 15 MG TABLET GT SCH (21:45)
[2019-05-11] MEDS: IV NS 1000 ML 1,000 ML IV PRN (22:18)
[2019-05-12] VITALS: BP 98/59
--- NOTE | 2019-05-12 02:24 | NUR ---
patient is on ns at 75 ml/hr and gt jak intake is monitored Addendum: 05/12/19 at 224 by COURTNEY AGUIRRE RN Amended: Anson added. Addendum: 05/12/19 at 224 by COURTNEY AGUIRRE RN Amended: Anson added.
--- NOTE | 2019-05-12 02:25 | NUR ---
patient is on ns at 75 ml/hr and gt jak intake is monitored Addendum: 05/12/19 at 0225 by COURTNEY AGUIRRE RN Amended: Links added.
--- NOTE | 2019-05-12 02:26 | NUR ---
wound and nutritional consult ordered and off loading and turning of the patient every 2 hours Addendum: 05/12/19 at 0226 by COURTNEY AGUIRRE RN Amended: Links added.
--- NOTE | 2019-05-12 02:27 | NUR ---
praneeth is isnserted and output is monitored Addendum: 05/12/19 at 0227 by COURTNEY AGUIRRE RN Amended: Links added.
[2019-05-12 05:00] VITALS: BP 140/48
--- NOTE | 2019-05-12 06:00 | NUR ---
AWAKE , NON VERBAL , GT FEEDING AT 50 ML /HR , NO RESIDUAL , LEFT INTERNAL JUGULAR CENTRAL LINE INTACT WITH SUTURES , ZIEGLER INTACT , NO BOWEL MOVEMENT , MOUTH CLEANED WITH ORAL SWABS
[2019-05-12] MEDS: LEVOTHYROXINE SODIUM 100 MCG TABLET GT SCH (06:07)
[2019-05-12] MEDS ORDERED: GLUCERNA 1.2 1000ML LIQUID GT PRN (06:15)
[2019-05-12 07:22] LABS: BASOPHILS % (AUTO) 0.7 % (0.0-2.0); EOSINOPHILS % (AUTO) 0.2 % (0.0-7.0); LYMPHOCYTES # (AUTO) 0.8 K/uL (20.0-40.0); LYMPHOCYTES % (AUTO) 12.1 % (20.5-51.5); MEAN CORPUSCULAR HEMOGLOBIN 33.9 uug (24.7-32.8); MEAN CORPUSCULAR HGB CONC 34 g/dL (32.3-35.6); MEAN CORPUSCULAR VOLUME 100.4 fL (75.5-95.3); MONOCYTES # (AUTO) 0.6 K/uL (2.0-10.0); MONOCYTES % (AUTO) 9.2 % (0.0-11.0); NEUTROPHILS % (AUTO) 77.8 % (38.5-71.5); PLATELET COUNT (AUTO) 151 K/uL (179-408); RED BLOOD CELL COUNT(AUTO) 2.99 MIL/uL (3.63-4.92); WHITE BLOOD COUNT (AUTO) 6.4 K/uL (3.8-11.8)
[2019-05-12 07:36] LABS: BILIRUBIN,TOTAL 0.4 mg/dL (0.2-1.0); CREATININE 0.6 mg/dL (0.6-1.3); PHOSPHOROUS 2.2 mg/dL (2.5-4.9); POTASSIUM 3.6 mmol/L (3.5-5.1); TOTAL PROTEIN, SERUM 5.9 g/dL (6.4-8.2)
[2019-05-12 07:40] LABS: HEMOGLOBIN 10.1 g/dL (10.9-14.3)
--- NOTE | 2019-05-12 08:00 | NUR ---
received pt. resting in bed alert to self. pt. has L jugular central line, R forearm 20 gauge intact patent saline lock, L hand 22 gauge intact patent saline lock. G tube intact flushing no residual receiving tube feeding. dacosta catheter in place draining clear yellow urine. safety measures in place. on cotact and droplet precautions for covid ruleout. will continue to monitor pt.
[2019-05-12 08:37] LABS: THYROID STIMULATING HORMONE 2.244 mIU/mL (0.358-3.740)
[2019-05-12] MEDS: VANCOMYCIN IV 750 MG in IV DEXTROSE 5% 250 ML IV SCH (08:37)
[2019-05-12] MEDS: PANTOPRAZOLE SODIUM 40 MG VIAL IV SCH (08:37)
--- NOTE | 2019-05-12 09:02 | NUR ---
CLINICAL PHARMACY NOTE: VANCOMYCIN PHARMACY TO DOSE Subjective: To start vancomycin in this 73 y/o female for indication of "empiric therapy" (fevers, outpatient PNA treatment prior) Objective: weight 54kg height 160cm BUN/Scr 29/0.8 wbc 7.6 temp 99.2 1gm vanco given in ER 05/10 @1900 Assessment/Plan As renal function remains stable, will start regimen of vanco 750mg q18h for estimated trough of 15.29, first dose today at 0900. Will check trough beofre 4th scheduled dose (not ordered yet). Will follow renal function and adjust if needed. Will monitor
[2019-05-12] MEDS: IV NS 1000 ML 1,000 ML IV PRN (09:05)
[2019-05-12] MEDS ORDERED: NEUTRA PHOS PACKET PO ONE (11:00)
[2019-05-12 11:03] VITALS: BP 142/74
[2019-05-12] MEDS: IV 1/2NS 1000 ML 1,000 ML IV PRN (12:43)
--- NOTE | 2019-05-12 13:02 | NUR ---
WOUND CARE CONSULT: PT PRESENTS WITH SACRAL SCARRING, PRESENT ON ADMISSION. RECOMMENDATIONS MADE FOR SKIN PROTECTION AND DISCUSSED WITH NURSING STAFF. FIRST STEP LOW AIRLOSS MATTRESS ORDERED. WILL SEE PRN. PAIGE IN AGREEMENT WITH PLAN OF CARE. PT IS CONTRACTED. Addendum: 05/12/19 at 1303 by SHAYAN RODRÍGUEZ RN Amended: Links added.
[2019-05-12 16:55] VITALS: BP 126/60
[2019-05-12] MEDS: levoFLOXacin 750MG/D5W 750 MG in PREMIXED 1 EACH IV SCH (17:41)
[2019-05-12] MEDS: RIVAROXABAN 15 MG TABLET GT SCH (17:42)
--- NOTE | 2019-05-12 18:04 | NUR ---
wound care nurse saw pt. air mattress ordered. mepilex to put on sacral wound. recommendation from dietary for g tube feeding glucerna 1.2 at 50 ml x 22 HR. 30 ML prostat. water bolus 200 ml TID. total fluid 1,000 mL.
--- NOTE | 2019-05-12 18:44 | NUR ---
urine sent down to lab. pt. resting comfortably in bed. pt. in no acute distress. safety measures in place. will endorse to pm nurse
--- NOTE | 2019-05-12 19:45 | NUR ---
PATIENT AWAKE NON VERBAL AT THIS TIME, NO SOB NO CHEST PAIN, ON 2LPM FOR SOB. GTF TOLERATE WELL NO VOMITING NOTED NO DIARRHEA. PATIENT ZIEGLER CATH PATENT DRAINING WITH YELLOW COLOR URINE IN MODERATE. PATIENT REMAIN ON DROPLET PRECAUTION, AWAITING FOR RESULTS, PATIENT TELE MONITOR SINUS RYTHM, SINUS TACHY. WILL CONT TO MONITOR.
[2019-05-12 19:49] LABS: *BILIRUBIN,URIN NEGATIVE (NEGATIVE); *CLARITY,URINE CLEAR (CLEAR); *COLOR,URINE YELLOW (YELLOW); *KETONES,URINE NEGATIVE (NEGATIVE); *UROBILINOGEN,URINE 0.2 E.U./dl (NORMAL); LEUKOCYTE ESTERASE ,URINE NEGATIVE (NEGATIVE); NITRITE, URINE NEGATIVE (NEGATIVE); UGLUCOSE TRACE (NEGATIVE)
[2019-05-12 19:53] LABS: *BLOOD, URINE TRACE (NEGATIVE)
[2019-05-12 19:54] LABS: *URINE TOTAL PROTEIN RANDOM 37.8 mg/dL (<150/24HR)
[2019-05-12 20:11] LABS: BACTERIA,URINE NONE SEEN /HPF (NONE SEEN); SQUAMOUS EPITHELIAL CELL,UR FEW /HPF (NONE SEEN); WBC,URINE 0-3 /HPF (0-3)
[2019-05-12 20:24] VITALS: BP 139/65
[2019-05-12] MEDS: HYDROCODONE/APAP 5-325MG TABLET PO PRN (21:28)
[2019-05-13 00:09] VITALS: BP 132/68
[2019-05-13] MEDS: VANCOMYCIN IV 750 MG in IV DEXTROSE 5% 250 ML IV SCH ×2 (02:45→20:45)
[2019-05-13 04:00] VITALS: BP 132/65
--- NOTE | 2019-05-13 04:50 | NUR ---
PATIENT ASLEEP BUT AROUSABLE, NO SOB NO CHEST PAIN, TELE SINUS RHYTHM, SINUS TACHY. PATIENT RELAXED, NO S/S OF PAIN AT THIS TIME. REMAIN ON DROPLET PRECAUTION, TOLERATE FEEDING CONT TO MONITOR.
[2019-05-13 06:14] LABS: BASOPHILS % (AUTO) 0.4 % (0.0-2.0); EOSINOPHILS # (AUTO) 0.1 K/uL (0.0-0.7); EOSINOPHILS % (AUTO) 1.1 % (0.0-7.0); HEMATOCRIT 29.9 % (31.2-41.9); HEMOGLOBIN 10.1 g/dL (10.9-14.3); LYMPHOCYTES # (AUTO) 1.1 K/uL (20.0-40.0); LYMPHOCYTES % (AUTO) 21.5 % (20.5-51.5); MEAN CORPUSCULAR HEMOGLOBIN 33.6 uug (24.7-32.8); MEAN CORPUSCULAR HGB CONC 34 g/dL (32.3-35.6); MEAN CORPUSCULAR VOLUME 99.1 fL (75.5-95.3); MONOCYTES # (AUTO) 0.3 K/uL (2.0-10.0); MONOCYTES % (AUTO) 6.1 % (0.0-11.0); NEUTROPHILS # (AUTO) 3.7 K/uL (1.8-8.9); NEUTROPHILS % (AUTO) 70.9 % (38.5-71.5); PLATELET COUNT (AUTO) 144 K/uL (179-408); RED BLOOD CELL COUNT(AUTO) 3.02 MIL/uL (3.63-4.92); WHITE BLOOD COUNT (AUTO) 5.2 K/uL (3.8-11.8)
[2019-05-13 06:33] LABS: BILIRUBIN,TOTAL 0.3 mg/dL (0.2-1.0); CREATININE 0.6 mg/dL (0.6-1.3); MAGNESIUM 1.8 mg/dL (1.8-2.4); PHOSPHOROUS 2.6 mg/dL (2.5-4.9); POTASSIUM 3.6 mmol/L (3.5-5.1); TOTAL PROTEIN, SERUM 5.7 g/dL (6.4-8.2)
[2019-05-13] MEDS: LEVOTHYROXINE SODIUM 100 MCG TABLET GT SCH (07:07)
--- NOTE | 2019-05-13 07:59 | NUR ---
Awake, confused. IVF infusing. With GT feedings
--- NOTE | 2019-05-13 08:10 | NUR ---
CLINICAL PHARMACY NOTE: VANCOMYCIN PHARMACY TO DOSE Subjective: To continue vancomycin in this 73 y/o female for indication of "empiric therapy" (fevers, outpatient PNA treatment prior) Objective: weight 54kg height 160cm BUN/Scr 21/0.6 wbc 5.2 temp 98.6 Assessment/Plan Will continue same of vanco 750mg IVPB q18h for today. 3rd dose today at 2100. Will check trough before 4th scheduled dose (ordered for 05/13 at 1430). Will adjust the dose when level is available if needed. Will monitor
[2019-05-13 11:00] VITALS: BP 174/88
[2019-05-13] MEDS: PANTOPRAZOLE SODIUM 40 MG VIAL IV SCH (11:02)
[2019-05-13] MEDS: IV 1/2NS 1000 ML 1,000 ML IV PRN (11:06)
[2019-05-13] MEDS: METFORMIN HCL 500 MG TABLET GT SCH ×2 (12:30→17:01)
[2019-05-13] MEDS: levoFLOXacin 750MG/D5W 750 MG in PREMIXED 1 EACH IV SCH (16:55)
[2019-05-13] MEDS: RIVAROXABAN 15 MG TABLET GT SCH (16:57)
[2019-05-13 17:10] VITALS: BP 142/64
--- NOTE | 2019-05-13 17:16 | NUR ---
Tolerating TF; 0 residuals and no ab distention. Recommend continue with Glucerna 1.2 @50ml/hour x 22 hours. Prostat 30ml. BUN and GLU normalizing. Started on Glucophage BID. Continue with POC and follow-up regularly. Addendum: 05/13/19 at [address] Amended: Links added.
[2019-05-13] MEDS ORDERED: RIVAROXABAN 15 MG TABLET GT SCH (18:00)
--- NOTE | 2019-05-13 20:00 | NUR ---
Per Dr SIDDIQUI, MEGAN isolation; pt is neg for COVID.
--- NOTE | 2019-05-13 20:52 | NUR ---
patient received in bed. g tube patent and running at 50cc/hr. triple lumen flushed and patent. v/s stable and no signs of acute distress noted. isolation precautions d/c per Dr. taylor. covid-19 test results negative. will continue plan of care.
[2019-05-13 21:14] VITALS: BP 126/66
--- NOTE | 2019-05-13 23:00 | NUR ---
report given to night nurse.
[2019-05-13] MEDS: ACETAMINOPHEN 325 MG TABLET PO PRN (23:11)
[2019-05-13] MEDS: HYDROCODONE/APAP 5-325MG TABLET PO PRN (23:12)
--- NOTE | 2019-05-13 23:30 | NUR ---
pt received from MAGED Ji. In stable condition, moaning from mild discomfort, pt medicated for pain, turned and repositioned, documentation of pressure ulcer on sacrum done and put in the chart. Pt resting comfortably in bed now.
[2019-05-13 23:59] VITALS: BP 133/72
[2019-05-14] MEDS: IV 1/2NS 1000 ML 1,000 ML IV PRN (03:20)
[2019-05-14 05:23] VITALS: BP 150/67
--- NOTE | 2019-05-14 05:29 | NUR ---
no acute events overnight, pt able to sleep during shift. No fever during shift
[2019-05-14] MEDS: LEVOTHYROXINE SODIUM 100 MCG TABLET GT SCH (06:27)
--- NOTE | 2019-05-14 08:00 | NUR ---
IN BED WITH RESTING COMFORTABLY SATURATING 100% AT 2L NC SR ON MONITOR. CONTINUE CURRENT TX PLAN
[2019-05-14] MEDS ORDERED: PANTOPRAZOLE ORAL SUSPENSION 40 MG SUSPDR.PKT GT SCH (09:00)
[2019-05-14] MEDS: ACETAMINOPHEN 325 MG TABLET PO PRN (09:08)
[2019-05-14] MEDS: METFORMIN HCL 500 MG TABLET GT SCH ×2 (09:09→16:45)
[2019-05-14] MEDS ORDERED: METOPROLOL TARTRATE 25 MG TABLET GT SCH (10:15)
[2019-05-14 12:06] VITALS: BP 141/70
--- NOTE | 2019-05-14 14:20 | NUR ---
Patient is in stable condition, vitals signs are within normal range, BP elevated 141/70 Hr at 87, gave metoprolol. pt medicated for pain gave tylenol. Turned and repositioned, wound care on sacrum. Pt resting comfortably in bed now. Pt gtube is patent and running 50cc/hr. Will continue to monitor. Plan to discharge and transfer patient back to [facility].
--- NOTE | 2019-05-14 15:00 | NUR ---
SEEN BY HOSPITALIST PLAN DC BACK TO SNF , STEAM AND GAS TURBINE ASSEMBLER AWARE
[2019-05-14] MEDS ORDERED: Glucerna 1.2 GT (15:14)
[2019-05-14] MEDS ORDERED: METO25TA6 GT (15:14)
[2019-05-14] MEDS ORDERED: LEVO500T2 GT (15:14)
[2019-05-14] MEDS ORDERED: METF-494 GT (15:28)
[2019-05-14] MEDS: RIVAROXABAN 15 MG TABLET GT SCH (16:11)
[2019-05-14] MEDS: levoFLOXacin 750MG/D5W 750 MG in PREMIXED 1 EACH IV SCH (16:11)
[2019-05-14 16:33] VITALS: BP 134/48
--- NOTE | 2019-05-14 19:50 | NUR ---
Patient shows no signs or symptoms of distress at this time. [email or web address] here to pick out hand patient. Central line removed by MAGED Sam. Pressure applied and no bleeding noted. Peripheral line removed and dacosta was emptied. Discharge instructions given to [facility]. [facility]
== END 2019-05-14 19:50 | DRG 720 ==
LOC: ER 17:15 → TELE-TD3 20:34 → TELE3 05-12 04:18 → MEDSURG3 05-14 11:57
PROVIDERS: ADMIT Hospitalist; ATTEND Internal Medicine
PROC: B548ZZA Ultrasonography of Superior Vena Cava, Guidance (ICD-10-PCS; principal; 2019-05-11)
PROC: 02HV33Z Insertion of Infusion Device into Superior Vena Cava, Percutaneous Approach (ICD-10-PCS; principal; 2019-05-11)
DX: A41.9 Sepsis, unspecified organism (principal); J69.0 Pneumonitis due to inhalation of food and vomit; N17.0 Acute kidney failure with tubular necrosis; E43 Unspecified severe protein-calorie malnutrition; G92 Toxic encephalopathy; E87.0 Hyperosmolality and hypernatremia; E11.65 Type 2 diabetes mellitus with hyperglycemia; D68.69 Other thrombophilia; R53.2 Functional quadriplegia; E87.1 Hypo-osmolality and hyponatremia; D63.8 Anemia in other chronic diseases classified elsewhere; E11.9 Type 2 diabetes mellitus without complications; E86.0 Dehydration; N39.0 Urinary tract infection, site not specified; R65.20 Severe sepsis without septic shock; E03.9 Hypothyroidism, unspecified; I70.0 Atherosclerosis of aorta; F03.90 Unspecified dementia, unspecified severity, without behavioral disturbance, psychotic disturbance, mood disturbance, and anxiety; Z86.711 Personal history of pulmonary embolism; Z87.440 Personal history of urinary (tract) infections; Z93.1 Gastrostomy status; Z88.2 Allergy status to sulfonamides; I10 Essential (primary) hypertension; K59.09 Other constipation; E88.09 Other disorders of plasma-protein metabolism, not elsewhere classified; Z68.21 Body mass index [BMI] 21.0-21.9, adult; B36.9 Superficial mycosis, unspecified; Z74.01 Bed confinement status
CPT/HCPCS: 36415; 36600; 70030-TC; 71045; 83605; 83735; 84100; 84156; 84300; 84443; 85025; 85730; 87040; 87086; 87400; 93005; A4663; C9113; G0378; J1956; J3370; J3490; J7030; J7060

== ENCOUNTER 2019-08-08 13:36 | Emergency (ER) | payer OTHER ==
[~2019-08-08] VITALS: Ht 160 cm; Wt 56.7 kg
[~2019-08-08 13:36] MED LIST changes: +Glucerna 1.2 GT; +LEVO500T2 GT; +METF-494 GT; +METO25TA6 GT
--- NOTE | 2019-08-08 13:52 | NUR ---
Dr. Lindsey at the bedside for [facility].
--- NOTE | 2019-08-08 14:30 | NUR ---
#18 fr G-tube placed and balloon inflated. Flushed and aspirated. G-tube in right position and patent.
--- NOTE | 2019-08-08 14:58 | NUR ---
CALLED [facility] FOR TRANSPORT BACK TO [facility] PER 'S ORDER. ETA [id number], TRIP # [id number].
--- NOTE | 2019-08-08 17:40 | NUR ---
Full telephone SBAR report given to Long Lines Operator MAGED Gasca from [facility] and made aware of pt's return to facility. Full SBAR report also given to ambulance.
--- NOTE | 2019-08-08 18:10 | NUR ---
Pt discharged back to [facility] with ambulance. Pt stable and nad noted upon discharge.
== END 2019-08-08 18:42 ==
LOC: ER 13:39
DX: Z43.1 Encounter for attention to gastrostomy (principal); R13.10 Dysphagia, unspecified; F03.90 Unspecified dementia, unspecified severity, without behavioral disturbance, psychotic disturbance, mood disturbance, and anxiety; Z98.2 Presence of cerebrospinal fluid drainage device; E11.9 Type 2 diabetes mellitus without complications; Z79.84 Long term (current) use of oral hypoglycemic drugs; Z86.711 Personal history of pulmonary embolism; I10 Essential (primary) hypertension
CPT/HCPCS: A4217; A4663